=== PATIENT | female | born 1940 | race Caucasian/White ===

== ENCOUNTER → 2016-03-17 | Outpatient (CLI) | payer OTHER ==
[~2016-03-17] MED LIST: ACET-1138 PO; ASPEC81 PO; ASPI81TA28 PO; CARB1SOL OPB; FURO-85 PO; INSUINJ12 SC; LOSA1TAB38 PO; LVMIPUC SC; NVLGI/PEN SC; ONDA8TAB6 PO; OXYSR10 PO; PANT40TA PO; PRAVASTATIN PO; RXC5 PO; VERA180T33 PO; VRPSR180 PO
--- NOTE | 2016-03-17 12:29 | DIAGNOSTIC IMAGING REPORT ---
LEFT EXTREMITY NONVASCULAR LIMITED ultrasound CLINICAL HISTORY: M25.562 Left knee pain, left popliteal fossa pain. COMPARISON STUDY: Bilateral lower extremity venous Doppler 01/29/2016. FINDINGS: Within the left popliteal fossa there is a slightly complex 17 x 17 x 6 mm cyst. There is no associated color flow. IMPRESSION: A 17 x 17 x 6 mm slight complex left popliteal fossa cyst. Electronically signed by: Rohith Gabriel M.D. 03/17/2016 12:27 PM Dictated Date/Time: 03/17/2016 12:25 PM
== END | disposition home or self-care (01) ==
LOC: C.ULTR 11:44
PROVIDERS: ATTEND Internal Medicine
DX: M25.562 Pain in left knee (principal); M71.22 Synovial cyst of popliteal space [Baker], left knee

== ENCOUNTER → 2016-04-10 | Outpatient (CLI) | payer OTHER ==
[2016-04-10 12:57] LABS: HEMATOCRIT 38.4 % (37-47); MEAN CELL VOLUME 96.7 fL (80-100); MEAN CORPUSCULAR HEMOGLOBIN 32.7 pg (25-34); MEAN CORPUSCULAR HGB CONC 33.9 g/dl (32-36); MEAN PLATELET VOLUME 12.3 fL (7.4-10.4); PLATELET COUNT 120 K/uL (130-400); RED BLOOD COUNT 3.97 M/uL (4.2-5.4); WHITE BLOOD COUNT 5.92 K/uL (4.8-10.8)
[2016-04-10 13:13] LABS: BASO % 0.3 %; BASO ABS # 0.02 K/uL (0-0.2); COMPLETE YES; EOS % 3.4 %; IG% 0.2 %; LYMPH % 34.3 %; LYMPH ABS # 2.03 K/uL (1.2-3.4); MONO % 7.1 %; NEUT % 54.7 %
[2016-04-10 13:20] LABS: ESTIMATED AVERAGE GLUCOSE 146 mg/dl; HA1C FLAG Normal (Normal)
== END | disposition home or self-care (01) ==
LOC: C.LABBFT 07:40
PROVIDERS: ATTEND Internal Medicine
DX: E11.49 Type 2 diabetes mellitus with other diabetic neurological complication (principal); D69.6 Thrombocytopenia, unspecified

== ENCOUNTER → 2016-05-30 | Outpatient (CLI) | payer OTHER | END | disposition home or self-care (01) | LOC: C.LABBFT 12:01 | PROVIDERS: ATTEND Orthopaedic Surgery | DX: T84.82XD Fibrosis due to internal orthopedic prosthetic devices, implants and grafts, subsequent encounter (principal); X58.XXXD Exposure to other specified factors, subsequent encounter ==

== ENCOUNTER → 2016-07-20 | Outpatient (CLI) | payer OTHER ==
[~2016-07-20] MED LIST changes: -ASPEC81 PO; -ONDA8TAB6 PO; -OXYSR10 PO; -PRAVASTATIN PO; -RXC5 PO
[2016-07-20 12:30] LABS: BASO % 0.4 %; BASO ABS # 0.02 K/uL (0-0.2); COMPLETE YES; EOS % 3.6 %; HEMATOCRIT 40.9 % (37-47); IG% 0.2 %; LYMPH % 32.4 %; MEAN CELL VOLUME 96.5 fL (80-100); MEAN CORPUSCULAR HEMOGLOBIN 31.1 pg (25-34); MEAN CORPUSCULAR HGB CONC 32.3 g/dl (32-36); MEAN PLATELET VOLUME 11.5 fL (7.4-10.4); MONO % 9.2 %; NEUT % 54.2 %; PLATELET COUNT 136 K/uL (130-400); RED BLOOD COUNT 4.24 M/uL (4.2-5.4); WHITE BLOOD COUNT 5.56 K/uL (4.8-10.8)
[2016-07-20 12:59] LABS: BLOOD UREA NITROGEN 13 mg/dl (7-18); CARBON DIOXIDE 25 mmol/L (21-32); CHLORIDE 108 mmol/L (98-107); CREATININE 0.74 mg/dl (0.60-1.20); GLUCOSE 143 mg/dl (70-99); POTASSIUM 4.3 mmol/L (3.5-5.1); SODIUM 141 mmol/L (136-145)
--- NOTE | 2016-07-27 10:54 | CODING QUERY MEDICAL NECESSITY ---
CQSUPPORTING DIAGNOSIS NEEDED A supporting diagnosis is required for the test/procedure performed on this patient in order for us to be reimbursed by the patient's insurance. Please provide a supporting diagnosis for the following test/procedure listed below next to the test name along with your signature. *If there is no additional diagnosis for this patient that would support the following test/procedure please document that below next to the test/procedure. Test(s)/Procedure(s) that require a supporting diagnosis: DOS 07/20/16 BLOOD COUNT Provider Signature: Date: Thank you Sommer Schmidt Agent [employer] Once completed, please kindly fax back to [phone] For questions please call [phone]
== END | disposition home or self-care (01) ==
LOC: C.LABBFT 07:39
PROVIDERS: ATTEND Orthopaedic Surgery
DX: Z01.812 Encounter for preprocedural laboratory examination (principal); T84.82XD Fibrosis due to internal orthopedic prosthetic devices, implants and grafts, subsequent encounter; Y83.1 Surgical operation with implant of artificial internal device as the cause of abnormal reaction of the patient, or of later complication, without mention of misadventure at the time of the procedure

== ENCOUNTER 2016-08-08 04:58 | Observation (INO) | payer OTHER ==
[2016-07-18 10:17] VITALS: BMI 44.0
--- NOTE | 2016-08-07 22:26 | HISTORY & PHYSICAL EXAMINATION ---
DATE OF ADMISSION: 08/08/2016 HISTORY OF PRESENT ILLNESS: The patient presents as a 76-year-old white female, 4 feet 11 inches, 197 pounds, who presents with complaints of ongoing pain attributable to her left knee. 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 She has had surgery, it was a total knee arthroplasty, back in December of 2015. She has been through extensive physical therapy and has range of motion from -5degrees to 95 degrees. Though she has had extensive therapy, is unable to obtain terminal flexion to be able to ambulate steps without pain. She presents for manipulation under anesthesia, postoperative pain management, DVT prophylaxis, antibiotics as noted above. PAST MEDICAL HISTORY: Significant for hypertension, hypercholesterolemia, rheumatoid arthritis, acid reflux. PAST SURGICAL HISTORY: Unremarkable. See history of present illness for pertinent positives. SOCIAL HISTORY: Unremarkable. The patient denies history of alcohol use, smoking or recreational drug use. FAMILY HISTORY: Otherwise unremarkable and noncontributory. ALLERGIES: METFORMIN, ATORVASTATIN, AZITHROMYCIN, GLYBURIDE, LISINOPRIL, LOVASTATIN, PENICILLINS, PROPOXYPHENE, RANITIDINE, SIMVASTATIN, SULFA ANTIBIOTICS, TRAMADOL, ZINC, IBUPROFEN. CURRENT MEDICATIONS: Include acetaminophen, gabapentin 300 mg p.o. b.i.d., oxycodone 10 mg p.o. q. 12 hours, multivitamin, enteric aspirin 81 mg p.o. b.i.d. PHYSICAL EXAMINATION: GENERAL: Reveals a very pleasant 76-year-old white female with complaints of ongoing pain attributable to her left knee for which she has developed fibrosis, status post total knee arthroplasty. She presents for manipulation under anesthesia, postoperative pain management, DVT prophylaxis, antibiotics as necessary. HEENT: Otherwise unremarkable, atraumatic, normocephalic. HEART: Regular at 70 beats per minute. LUNGS: Clear without rales, rhonchi, or wheezes noted. ABDOMEN: Soft, nontender, nondistended. Bowel sounds are present in all four quadrants. RECTAL: No rectal examination was performed. MUSCULOSKELETAL: Consistent with that of a total knee arthroplasty with mild warmth, stiffness and range of motion from 5 to 95 degrees with a painful endpoint. The patient presents for manipulation under anesthesia, postoperative pain management, possible DVT prophylaxis, pending surgery. BETO
[2016-08-08] VITALS (11 sets, daily range): BP systolic 103–167; BP diastolic 63–87; PULSE 60–94; TEMP 36.3–36.9; O2SAT 91–100; Ht 142.2 cm; Wt 89.5 kg
[~2016-08-08] VITALS: Ht 142.2 cm; Wt 89.5 kg
[~2016-08-08 04:58] MED LIST changes: -LVMIPUC SC; -VERA180T33 PO
[2016-08-08] MEDS ORDERED: LACTATED RINGER'S 1000ML 1,000 ML IV SCH (06:00)
[2016-08-08] MEDS ORDERED: PROPOFOL IV EMULSION 10 MG/ML 20 ML VIAL IV ONE (06:30)
[2016-08-08] MEDS ORDERED: LIDOCAINE HCL 2% 2 ML VIAL (20MG/ML) ONE (06:30)
[2016-08-08] MEDS ORDERED: FENTANYL CITRATE INJ 50 MCG/1 ML 2 ML VIAL ONE (06:31)
[2016-08-08] MEDS ORDERED: MIDAZOLAM HCL 1 MG/ML 2ML VIAL ONE (06:31)
[2016-08-08] MEDS ORDERED: ROPIVACAINE 0.5% 5 MG/ML 30 ML VIAL ONE (06:47)
--- NOTE | 2016-08-08 06:54 | History & Physical Bridge Note ---
H&P Re-Evaluation Bridge Note: I have examined the patient, reviewed the History & Physical and in the interval since the performance of the History & Physical I have noted the following changes of clinical significance: No changes noted
--- NOTE | 2016-08-08 07:14 | [facility] Post Operative Brief Note ---
Immediate Operative Summary Operative Date Aug 08, 2016. Pre-Operative Diagnosis arthrofibrosis lt tka Post-Operative Diagnosis same Procedure(s) Performed curtis 0 135 degrees post -5 95 pre manip Surgeon brisa Sewer Head Surgeon(s) none Estimated Blood Loss 0 Findings arthyrofibrosis as above Specimens none Complication(s) None Disposition Recovery Room / PACU
[2016-08-08] MEDS ORDERED: MEPERIDINE 50 MG TAB PO PRN (07:30)
[2016-08-08] MEDS ORDERED: ACETAMINOPHEN 500 MG TAB PO ONE (07:39)
[2016-08-08] MEDS ORDERED: ATROPINE SULFATE 0.1 MG/ML 5ML SYR IV PRN (07:45)
[2016-08-08] MEDS ORDERED: EpHEDrine SULFATE INJ 50 MG/ML AMP IV PRN (07:45)
[2016-08-08] MEDS ORDERED: ONDANSETRON INJ 2 MG/ML 2 ML VIAL IV PRN (07:45)
[2016-08-08] MEDS ORDERED: MEPERIDINE HCL 25 MG/ML CARP IM PRN (07:45)
--- NOTE | 2016-08-08 08:05 | OPERATIVE REPORT ---
DATE OF OPERATION: 08/08/2016 PREOPERATIVE DIAGNOSIS: Arthrofibrosis, left knee, range of motion -5 to 95 degrees. POSTOPERATIVE DIAGNOSIS: Same with postoperative manipulation, range of motion 0 to 140 degrees. SURGEON: Syd Peterson DO ANESTHESIA: General. COMPLICATIONS: None. GROSS FINDINGS: The patient is a very pleasant 76-year-old white female with complaints of ongoing pain attributed to her left total knee arthroplasty she had done in December. She developed postoperative pain and subsequently developed arthrofibrosis of her left total knee She presents for left manipulation with total knee arthroplasty. PROCEDURE: After initiation of general anesthesia, the left knee was manipulated in full extension to 140 degrees of flexion without difficulty. Some mild lysis of adhesions, pre manip rom -5 degrees of extension and had approximately 95 to 100 degrees of flexion. The manipulation was very nonaggressive and easy with minimal lysis of adhesions. The knee had excellent motion. The patient was taken to recovery room in stable condition. I attest to the content of the Intraoperative Record and any orders documented therein. Any exceptions are noted below. BETO
--- NOTE | 2016-08-08 08:22 | Anesthesiology Progress Note ---
Anesthesia Post Op Note Date & Time Aug 08, 2016 at 08:22 Vital Signs Pain Intensity: 2 Vital Signs Past 12 Hours Date Time Temp Pulse Resp B/P (MAP) Pulse Ox O2 Delivery O2 Flow Rate FiO2 08/08/16 08:05 36.1 65 17 96 08/08/16 08:01 112/63 08/08/16 07:56 119/55 08/08/16 07:55 68 19 08/08/16 07:55 68 19 95 08/08/16 07:51 116/68 08/08/16 07:50 71 10 91 08/08/16 07:46 125/69 08/08/16 07:45 71 15 93 08/08/16 07:41 107/58 08/08/16 07:40 77 18 90 08/08/16 07:36 109/83 08/08/16 07:35 73 18 97 08/08/16 07:31 116/60 08/08/16 07:30 73 18 97 08/08/16 07:26 111/56 08/08/16 07:25 74 13 97 08/08/16 07:25 36.1 72 15 111/56 97 Oxymask 15 08/08/16 05:40 36.7 81 20 167/87 (113) 95 Room Air Notes Mental Status: alert / awake / arousable, participated in evaluation Pt Amnestic to Procedure: Yes Nausea / Vomiting: adequately controlled Pain: adequately controlled Airway Patency, RR, SpO2: stable & adequate BP & HR: stable & adequate Hydration State: stable & adequate Anesthetic Complications: no major complications apparent
[2016-08-08] MEDS: PANTOprazole SOD 40 MG TAB PO SCH (09:00)
[2016-08-08] MEDS ORDERED: GLUCOSE 10 TABS/TUBE PO PRN (09:00)
[2016-08-08] MEDS ORDERED: DEXTROSE 50% 50 ML SYR IV PRN (09:00)
[2016-08-08] MEDS ORDERED: GLUCAGON FOR INJ 1 MG VIAL SQ PRN (09:00)
[2016-08-08] MEDS ORDERED: GLUCOSE 40% GEL 15 GM TUBE PO PRN (09:00)
[2016-08-08] MEDS ORDERED: INSULIN ASPART 100 UNITS/ML 3 ML PEN SC SCH (09:00)
[2016-08-08] MEDS: POTASSIUM CHLORIDE INJ 10 MEQ in SODIUM CHLORIDE 0.9% 1000ML 1,000 ML IV SCH ×2 (09:47→20:33)
[2016-08-08] MEDS: VERAPAMIL HCL 180 MG TABCR PO SCH ×2 (10:05→11:26)
[2016-08-08] MEDS: FUROSEMIDE 20 MG TAB PO SCH (10:06)
[2016-08-08] MEDS: ARTIFICIAL TEARS OP SOLN OPB SCH ×6 (10:06→21:34)
[2016-08-08] MEDS: LOSARTAN POTASSIUM 50 MG TAB PO SCH (10:06)
[2016-08-08] MEDS: INSULIN ASPART 100 UNITS/ML 3 ML PEN SC SCH ×3 (13:10→21:00)
[2016-08-08] MEDS ORDERED: MEPERIDINE HCL 25 MG/ML CARP IV PRN ×2 (16:00→23:45)
[2016-08-08] MEDS: ACETAMINOPHEN 500 MG TAB PO SCH ×2 (16:07→23:42)
[2016-08-08] MEDS ORDERED: INSULIN DETEMIR FLEXPEN/FLEX TOUCH 100 UNITS/ML 3ML SC SCH (21:00)
[2016-08-09 03:08] VITALS: BP 146/73; PULSE 88; TEMP 36.7; O2SAT 92
[2016-08-09] MEDS: POTASSIUM CHLORIDE INJ 10 MEQ in SODIUM CHLORIDE 0.9% 1000ML 1,000 ML IV SCH (05:05)
[2016-08-09 07:39] VITALS: BP 152/82; PULSE 94; TEMP 36.7; O2SAT 93
--- NOTE | 2016-08-09 08:07 | Anesthesiology Progress Note ---
Anesthesia Post Op Note Date & Time Aug 09, 2016 at 08:06 Vital Signs Pain Intensity: 3.0 Vital Signs Past 12 Hours Date Time Temp Pulse Resp B/P (MAP) Pulse Ox O2 Delivery O2 Flow Rate FiO2 08/09/16 07:39 36.7 94 16 152/82 (105) 93 Room Air 08/09/16 07:20 Room Air 08/09/16 03:08 36.7 88 16 146/73 (97) 92 Room Air 08/08/16 23:30 Room Air 08/08/16 23:27 36.9 94 19 166/74 (104) 92 Room Air Notes Mental Status: alert / awake / arousable, participated in evaluation Pt Amnestic to Procedure: Yes Nausea / Vomiting: adequately controlled Pain: adequately controlled Airway Patency, RR, SpO2: stable & adequate BP & HR: stable & adequate Hydration State: stable & adequate Neuraxial Anesthesia: was administered, sensory block resolved Anesthetic Complications: no major complications apparent
[2016-08-09 08:10] VITALS: O2SAT 93
[2016-08-09] MEDS: ACETAMINOPHEN 500 MG TAB PO SCH (08:29)
[2016-08-09] MEDS: VERAPAMIL HCL 180 MG TABCR PO SCH (08:30)
[2016-08-09] MEDS: ARTIFICIAL TEARS OP SOLN OPB SCH ×2 (08:30)
[2016-08-09] MEDS: LOSARTAN POTASSIUM 50 MG TAB PO SCH (08:31)
[2016-08-09] MEDS: FUROSEMIDE 20 MG TAB PO SCH (08:31)
[2016-08-09] MEDS: PANTOprazole SOD 40 MG TAB PO SCH (08:32)
[2016-08-09] MEDS: INSULIN ASPART 100 UNITS/ML 3 ML PEN SC SCH (08:33)
[2016-08-09] MEDS ORDERED: INSULIN ASPART 100 UNITS/ML 3 ML PEN SC SCH (09:00)
[2016-08-09] MEDS ORDERED: NURSING VERBAL MED ORDER ONE (09:15)
--- NOTE | 2016-08-09 10:24 | Orthopedic Progress Note ---
Orthopedic Progress Note Date of Service Aug 09, 2016. Subjective Post OP Day: 1 Reports: feeling well, pain controlled w PO medications, Denies: complaints, chest pain, SOB, nausea / vomiting, light headedness, calf pain Objective calves soft nontender, N/V intact, capillary refill less than 2 sec., A&O x3, toes mobile Date Time Temp Pulse Resp B/P (MAP) Pulse Ox O2 Delivery O2 Flow Rate FiO2 08/09/16 08:10 93 Room Air 08/09/16 07:39 36.7 94 16 152/82 (105) 93 Room Air 08/09/16 07:20 Room Air 08/09/16 03:08 36.7 88 16 146/73 (97) 92 Room Air 08/08/16 23:30 Room Air 08/08/16 23:27 36.9 94 19 166/74 (104) 92 Room Air 08/08/16 20:00 154/79 (104) 08/08/16 19:21 36.7 84 17 158/74 (102) 92 Room Air 08/08/16 16:00 Room Air 08/08/16 15:09 36.4 60 16 139/74 (95) 92 Room Air 08/08/16 11:34 36.3 61 17 116/69 (85) 96 Nasal Cannula 2.0 08/08/16 10:27 36.4 61 19 106/66 (79) 95 Nasal Cannula 2.0 Assessment & Plan Assessment: POD #1, Lt TKA SUNNI Plan: PT/ OT D/C home today w OPPT. Inhouse Planning Pain Management: PO Tylenol DVT Prophylaxis: TEDs, SCDs Discharge Planning Discharge Planning: home with oppt Pain Management: PO Tylenol DVT Prophylaxis: TEDs Therapy: Physical Therapy, Occupational Therapy
[2016-08-09] MEDS ORDERED: ACET-1138 PO (10:25)
--- NOTE | 2016-08-09 10:27 | Discharge Instructions ---
Discharge Instructions Date of Service Aug 09, 2016. Admission Reason for Admission: Left Knee Arthrofibrosis, S/P Left Tka Discharge Discharge Diagnosis / Problem: Left TKA CURTIS Discharge Goals Goal(s): Improve function Activity Recommendations Activity Limitations: as noted below . Instructions / Follow-Up Instructions / Follow-Up PT daily until follow up w Dr. Peterson Tylenol for pain Ice/ Elevate as needed WBAT w walker Follow up w Dr. Peterson 12-14 days post op, call [phone] to confirm appt. Current Hospital Diet Patient's current hospital diet: Diabetes Type 2 Diet Discharge Diet Recommended Diet: Diabetes Type 2 Diet Procedures Procedures Performed: curtis 0 135 degrees post -5 95 pre manip Pending Studies Studies pending at discharge: no Medical Emergencies . Who to Call and When: Medical Emergencies: If at any time you feel your situation is an emergency, please call 911 immediately. . Non-Emergent Contact Non-Emergency issues call your: Primary Care Provider . "Provider Documentation" section prepared by Tomer Childress. . VTE Core Measure Inpt VTE Proph given/why not?: Other Anticoagulation (asa), T.E.DJanice Valentino, SCD's [place] Drug Monitoring Program Search Results: patient reviewed within database, no issues identified
[2016-08-09 11:22] VITALS: BP 152/82; PULSE 94; TEMP 36.7; O2SAT 93
--- NOTE | 2016-08-15 19:11 | Discharge Summary ---
Orthopedic Discharge Summary Admission Date/Reason Aug 08, 2016 at 07:18 Left Knee Arthrofibrosis, S/P Left Tka. Discharge Date/Disposition Aug 09, 2016 Home Diagnosis Principal Diagnosis: left knee arthrofibrosis Procedure(s) Performed Manipulation under anesthesia left total knee replacement Consultations NONE Medication Reconciliation Continued Medications: Acetaminophen (Tylenol Extra Strength) 500 Mg Tab 1000 MG PO Q8H for 21 Days, #126 TAB (This prescription has been renewed) Aspirin (Aspirin Ec) 81 Mg Tab 81 MG PO QAM Carboxymethylcellulose Sodium (Refresh) 1 % Gerald 1 DROP OPB TID Furosemide (Lasix) 20 Mg Tab 1 TAB PO QAM for 90 Days, #90 TAB 1 Refill Insulin Aspart (Novolog Flexpen) 100 Units/Ml Inj 18 UNITS SC BID BREAKFAST AND SUPPER Insulin Aspart (Novolog Flexpen) 100 Units/Ml Inj 7 UNITS SC LUNCH Insulin Detmir (Levemir) Inj 18 UNITS SC HS, VIAL Losartan Potassium (Cozaar) 100 Mg Tab 1 TAB PO QAM for 30 Days, #30 TAB 5 Refills Pantoprazole Sodium (Protonix) 40 Mg Tab 40 MG PO QAM Verapamil HCl (Verapamil HCl ER) 180 Mg Tabcr 1.5 TAB PO QAM 270 MG Admission Physical Exam As per Admitting History & Physical. Hospital Course patient admitted after SUNNI left TKA. she tolerated it well. she stayed overnight for pain control. on the day following SUNNI her pain was well controlled and stable for discharge with OPPT. please refer to daily progress notes for complete details. Discharge Instructions Please refer to the electronic Patient Visit Report (Discharge Instructions) for additional information.
[2016-11-28] MEDS ORDERED: LVMIPUC SC (11:33)
[2016-11-28] MEDS ORDERED: NVLGI/PEN SC (11:33)
[2016-11-28] MEDS ORDERED: VERA180T33 PO (11:33)
[2016-11-28] MEDS ORDERED: CARB1SOL OPB (11:33)
== END 2016-08-09 11:34 | disposition home or self-care (01) ==
LOC: C.ACU 04:58 → C.3E 07:18 → ENRESERV 07:55
PROVIDERS: ADMIT Orthopaedic Surgery; ATTEND Orthopaedic Surgery
DX: M24.662 Ankylosis, left knee (principal); I10 Essential (primary) hypertension; E11.9 Type 2 diabetes mellitus without complications; E78.00 Pure hypercholesterolemia, unspecified; M06.9 Rheumatoid arthritis, unspecified; E66.9 Obesity, unspecified; Z79.82 Long term (current) use of aspirin; Z68.39 Body mass index [BMI] 39.0-39.9, adult; Z98.890 Other specified postprocedural states; Z96.652 Presence of left artificial knee joint; Z98.41 Cataract extraction status, right eye; Z98.42 Cataract extraction status, left eye; Z88.1 Allergy status to other antibiotic agents; Z88.0 Allergy status to penicillin; Z88.2 Allergy status to sulfonamides

== ENCOUNTER → 2016-09-15 | Outpatient (CLI) | payer OTHER ==
[~2016-09-15] MED LIST changes: +LVMIPUC SC; +VERA180T33 PO
[2016-09-15 12:49] LABS: HEMATOCRIT 39.9 % (37-47); MEAN CELL VOLUME 97.1 fL (80-100); MEAN CORPUSCULAR HEMOGLOBIN 31.9 pg (25-34); MEAN CORPUSCULAR HGB CONC 32.8 g/dl (32-36); MEAN PLATELET VOLUME 12.1 fL (7.4-10.4); PLATELET COUNT 113 K/uL (130-400); RED BLOOD COUNT 4.11 M/uL (4.2-5.4); WHITE BLOOD COUNT 4.96 K/uL (4.8-10.8)
[2016-09-15 13:03] LABS: ESTIMATED AVERAGE GLUCOSE 151 mg/dl; HA1C FLAG Normal (Normal)
[2016-09-15 13:05] LABS: BASO % 0.4 %; BASO ABS # 0.02 K/uL (0-0.2); COMPLETE YES; EOS % 3.8 %; IG% 0.2 %; LYMPH % 31.9 %; LYMPH ABS # 1.58 K/uL (1.2-3.4); MONO % 8.7 %
== END | disposition home or self-care (01) ==
LOC: C.LABBFT 07:45
PROVIDERS: ATTEND Internal Medicine
DX: E11.49 Type 2 diabetes mellitus with other diabetic neurological complication (principal); D69.6 Thrombocytopenia, unspecified

== ENCOUNTER → 2016-12-08 | Day surgery (SDC) | payer OTHER ==
[2016-11-28 11:34] VITALS: Ht 142.2 cm; Wt 89.1 kg
[~2016-12-08] VITALS: Ht 142.2 cm; Wt 89.1 kg
[~2016-12-08] MED LIST changes: -ACET-1138 PO; -INSUINJ12 SC; +LIDOCAINE HCL 2% 2 ML VIAL (20MG/ML) ONE; +PROPOFOL IV EMULSION 10 MG/ML 20 ML VIAL IV ONE; -VRPSR180 PO
--- NOTE | 2016-12-08 09:48 | Endo History and Physical ---
History & Physical Date of Service: Dec 08, 2016. Chief Complaint: Screening-Hx of Polyps Referring Physician: Dr Penaloza History of Present Illness 76 yo CF who presents for colonoscopy secondary to history of colon polyps. Past Medical History Diabetes, Reflux, Hypertension Past Surgical History Hx Cardiac Surgery: No Hx Internal Defibrillator: No Hx Pacemaker: No Hx Abdominal Surgery: No Hx of Implantable Prosthesis: No Hx Post-Op Nausea and Vomiting: No Hx Cancer Surgery: No Hx Thoracic Surgery: No Hx Orthopedic: Yes (RT/LEFT KNEE ARTHROSCOPY,LEFT TKA, LIPOMA L SHOULDER,R FOOT BONE SPUR) Hx Urinary Tract Surgery: No Family History None Social History Smoking Status: Never Smoker Hx Substance Use: No Hx Alcohol Use: No Allergies Coded Allergies: Amoxicillin (Unverified Allergy, Severe, hives Respdifficulty, 12/08/16) Atorvastatin (Verified Allergy, Intermediate, Rash/Hives, 11/28/16) Ezetimibe (Verified Allergy, Intermediate, Hives/Rash, 11/28/16) Glyburide (Verified Allergy, Intermediate, Rash/Hives, 11/28/16) Hydrocodone (Verified Allergy, Intermediate, RASH, 11/28/16) Metformin (Verified Allergy, Mild, HIVES, 11/28/16) PATIENT STATES SHE CANNOT TAKE ANY PO INSULIN TYPE MEDS CAUSING HER HIVES. Azithromycin (Verified Allergy, Unknown, Hives/Rash, 11/28/16) Isopropyl Alcohol (Unverified Allergy, Unknown, BLISTERS, 11/28/16) Lisinopril (Verified Allergy, Unknown, Cough, 11/28/16) Lovastatin (Verified Allergy, Unknown, Rash/Hives, 11/28/16) Morphine (Unverified Allergy, Unknown, per PCP records , 11/28/16) Oxycodone (Unverified Allergy, Unknown, RASH, 11/28/16) Penicillins (Unverified Allergy, Unknown, HIVES, 11/28/16) Pioglitazone (Verified Allergy, Unknown, Rash/Hives, 11/28/16) Pravastatin (Unverified Allergy, Unknown, per PCP records , 11/28/16) Propoxyphene (Unverified Allergy, Unknown, RASH HIVES, 11/28/16) Propylene Glycol (Unverified Allergy, Unknown, BLISTERS, 11/28/16) Ranitidine (Verified Allergy, Unknown, Rash/Hives, 11/28/16) Rosuvastatin (Verified Allergy, Unknown, Rash/Hives, 11/28/16) Simvastatin (Verified Allergy, Unknown, Muscles Ache, 11/28/16) Sulfa Antibiotics (Unverified Allergy, Unknown, GI UPSET, 11/28/16) Tramadol (Verified Allergy, Unknown, Hives/Rash, 11/28/16) Zinc (Verified Allergy, Unknown, Unknown, 11/28/16) Diclofenac (Verified Adverse Reaction, Intermediate, BLISTERS, 11/28/16) Ibuprofen (Unverified Adverse Reaction, Unknown, AVOIDS SECONDARY TO STOMACH UPSET , 11/28/16) Uncoded Allergies: SALONPAS PATCH (Allergy, Unknown, RASH, 06/06/16) Current Medications Reported Home Medications Medications Dose Route/Sig Max Daily Dose Days Date Category Dose Instructions Calan Sr Ext Rel (Verapamil Hcl) 180 Mg Tab 1.5 Tab PO QAM 11/28/16 Reported Refresh (Carboxymethylcellulose Sodium) 1 % Gerald 1 Drop OPB QID 11/28/16 Reported Novolog Flexpen (Insulin Aspart) 100 Units/Ml Inj 1 Dose SC QID 11/28/16 Reported 18 UNITS IN AM 8 UNIST AT LUNCH 16 UNITS AT SUPPER Levemir (Insulin Detemir) 1,000 Units/10 Ml Inj 1 Dose SC BID 11/28/16 Reported 8 UNITS IN AM 16 UNITS IN PM Protonix (Pantoprazole Sodium) 40 Mg Tab 40 Mg PO QAM 07/18/16 Reported Aspirin Ec (Aspirin) 81 Mg Tab 81 Mg PO QAM 07/18/16 Reported Cozaar (Losartan Potassium) 100 Mg Tab 1 Tab PO QAM 30 05/27/15 Reported Lasix (Furosemide) 20 Mg Tab 1 Tab PO QAM 90 05/27/15 Reported Vital Signs Weight (Kilograms): 89.09 Height (Feet): 4 Height (Inches): 8 Date Time Temp Pulse Resp B/P (MAP) Pulse Ox O2 Delivery O2 Flow Rate FiO2 12/08/16 09:23 36.9 89 20 155/62 (93) 95 Room Air Physical Exam General Appearance: WD/WN, no apparent distress Respiratory/Chest: Auscultation: breath sounds normal Cardiovascular: Heart Auscultation: RRR Abdomen: Bowel Sounds: normal Inspection & Palpation: soft, non-distended, no tenderness, guarding & rebound Assessment and Plan Assessment: 76 yo CF who presents for colonoscopy secondary to history of colon polyps. Plan: Proceed with colonoscopy.
--- NOTE | 2016-12-08 10:27 | GI REPORT ---
Procedure Date: 12/08/2016 9:52 AM Procedure: Colonoscopy Indications: High risk colon cancer surveillance: Personal history of colonic polyps Medicines: Monitored Anesthesia Care Complications: No immediate complications. Estimated Blood Loss: Estimated blood loss: none. Procedure: Pre-Anesthesia Assessment: - Prior to the procedure, a History and Physical was performed, and patient medications and allergies were reviewed. The patient's tolerance of previous anesthesia was also reviewed. The risks and benefits of the procedure and the sedation options and risks were discussed with the patient. All questions were answered, and informed consent was obtained. Prior Anticoagulants: The patient has taken aspirin, last dose was 1 day prior to procedure. ASA Grade Assessment: III - A patient with severe systemic disease. After reviewing the risks and benefits, the patient was deemed in satisfactory condition to undergo the procedure. After I obtained informed consent, the scope was passed under direct vision. Throughout the procedure, the patient's blood pressure, pulse, and oxygen saturations were monitored continuously. The scope was introduced through the anus and advanced to the cecum, identified by appendiceal orifice and ileocecal valve. The colonoscopy was performed without difficulty. The patient tolerated the procedure well. The quality of the bowel preparation was good. The ileocecal valve, appendiceal orifice, and rectum were photographed. Findings: Multiple small-mouthed diverticula were found in the sigmoid colon. Non-bleeding internal hemorrhoids were found during retroflexion. The hemorrhoids were small. Impression: - Diverticulosis in the sigmoid colon. - Non-bleeding internal hemorrhoids. - No specimens collected. Recommendation: - Resume previous diet. - Continue present medications. - Return to primary care physician as previously scheduled. - No repeat colonoscopy due to age and the absence of advanced adenomas. Krishna Cho DO 12/08/2016 10:26:38 AM This report has been signed electronically. Note Initiated On: 12/08/2016 9:52 AM I attest to the content of the Intraoperative Record and orders documented therein, exceptions below
--- NOTE | 2016-12-08 10:28 | Discharge Instructions ---
Endoscopy Patient Instructions Date / Procedure(s) Performed Dec 08, 2016. Colonoscopy Allergy Information Coded Allergies: Amoxicillin (Unverified Allergy, Severe, hives Respdifficulty, 12/08/16) Atorvastatin (Verified Allergy, Intermediate, Rash/Hives, 11/28/16) Ezetimibe (Verified Allergy, Intermediate, Hives/Rash, 11/28/16) Glyburide (Verified Allergy, Intermediate, Rash/Hives, 11/28/16) Hydrocodone (Verified Allergy, Intermediate, RASH, 11/28/16) Metformin (Verified Allergy, Mild, HIVES, 11/28/16) PATIENT STATES SHE CANNOT TAKE ANY PO INSULIN TYPE MEDS CAUSING HER HIVES. Azithromycin (Verified Allergy, Unknown, Hives/Rash, 11/28/16) Isopropyl Alcohol (Unverified Allergy, Unknown, BLISTERS, 11/28/16) Lisinopril (Verified Allergy, Unknown, Cough, 11/28/16) Lovastatin (Verified Allergy, Unknown, Rash/Hives, 11/28/16) Morphine (Unverified Allergy, Unknown, per PCP records , 11/28/16) Oxycodone (Unverified Allergy, Unknown, RASH, 11/28/16) Penicillins (Unverified Allergy, Unknown, HIVES, 11/28/16) Pioglitazone (Verified Allergy, Unknown, Rash/Hives, 11/28/16) Pravastatin (Unverified Allergy, Unknown, per PCP records , 11/28/16) Propoxyphene (Unverified Allergy, Unknown, RASH HIVES, 11/28/16) Propylene Glycol (Unverified Allergy, Unknown, BLISTERS, 11/28/16) Ranitidine (Verified Allergy, Unknown, Rash/Hives, 11/28/16) Rosuvastatin (Verified Allergy, Unknown, Rash/Hives, 11/28/16) Simvastatin (Verified Allergy, Unknown, Muscles Ache, 11/28/16) Sulfa Antibiotics (Unverified Allergy, Unknown, GI UPSET, 11/28/16) Tramadol (Verified Allergy, Unknown, Hives/Rash, 11/28/16) Zinc (Verified Allergy, Unknown, Unknown, 11/28/16) Diclofenac (Verified Adverse Reaction, Intermediate, BLISTERS, 11/28/16) Ibuprofen (Unverified Adverse Reaction, Unknown, AVOIDS SECONDARY TO STOMACH UPSET , 11/28/16) Uncoded Allergies: SALONPAS PATCH (Allergy, Unknown, RASH, 06/06/16) Discharge Date / Findings Dec 08, 2016. Diverticulosis Internal hemorrhoids Medication Instructions Stopped Medication(s): ASA, OK to resume all medications today as prescribed Reported Home Medications Medications Dose Route/Sig Max Daily Dose Days Date Category Dose Instructions Calan Sr Ext Rel (Verapamil Hcl) 180 Mg Tab 1.5 Tab PO QAM 11/28/16 Reported Refresh (Carboxymethylcellulose Sodium) 1 % Gerald 1 Drop OPB QID 11/28/16 Reported Novolog Flexpen (Insulin Aspart) 100 Units/Ml Inj 1 Dose SC QID 11/28/16 Reported 18 UNITS IN AM 8 UNIST AT LUNCH 16 UNITS AT SUPPER Levemir (Insulin Detemir) 1,000 Units/10 Ml Inj 1 Dose SC BID 11/28/16 Reported 8 UNITS IN AM 16 UNITS IN PM Protonix (Pantoprazole Sodium) 40 Mg Tab 40 Mg PO QAM 07/18/16 Reported Aspirin Ec (Aspirin) 81 Mg Tab 81 Mg PO QAM 07/18/16 Reported Cozaar (Losartan Potassium) 100 Mg Tab 1 Tab PO QAM 30 05/27/15 Reported Lasix (Furosemide) 20 Mg Tab 1 Tab PO QAM 90 05/27/15 Reported Provider Instructions Activity Restrictions - No exercising or heavy lifting for 24 hours. - Do not drink alcohol the day of the procedure. - Do not drive a car or operate machinery until the day after the procedure. - Do not make any important decisions or sign important papers in 24 hours after the procedure. Following Day: - Return to full activity which may include returning to work/school. Diet Start your diet with liquids and light foods (jello, soup, juice, toast). Then eat your usual diet if not nauseated. Treatment For Common After Affects For mild abdominal pain, bloating, or excessive gas: - Rest - Eat lightly - Lie on right side Follow-Up Information Follow-up with Dr Penaloza as scheduled Anesthesia Information What You Should Know You have had a procedure that required some medicine to reduce anxiety and discomfort. This treatment is called moderate sedation. After receiving the treatment, you may be sleepy, but you will be able to breathe on your own. The effects of the treatment may last for several hours. Follow these instructions along with Activity/Diet recommendations noted above: * Do NOT do anything where dizziness or clumsiness would be dangerous. * Rest quietly at home today, then you can be up and about tomorrow. * Have a responsible person stay with you the rest of today. * You may have had an I.V. today. If so, you may take the dressing off later today. Recommendations Call your doctor if: * Trouble breathing * Continuous vomiting for more than 24 hours * Temperature above 101 degrees * Severe abdominal pain or bloating * Pain not relieved by pain medicine ordered * There is increased drainage or redness from any incision * A large amount of rectal bleeding greater than 2-3 tablespoons. (If you had a polyp/s removed or have hemorrhoids, a small amount of blood - from the rectum is to be expected.) * You have any unanswered questions or concerns. IN THE EVENT OF A SERIOUS EMERGENCY, GO TO THE NEAREST EMERGENCY ROOM Your discharge instructions were prepared by provider Krishna Cho. Patient Instructions Signature Page Esperanza Trinidad Patient (or Guardian) Signature/Date: I have read and understand the instructions given to me by my caregivers. Caregiver/RN/Doctor Signature/Date: The above-named patient and/or guardian has received patient instructions on this date. + Original Patient Signature Page (only) stays with chart. Please make copy for patient.
--- NOTE | 2016-12-08 10:41 | Anesthesiology Progress Note ---
Anesthesia Post Op Note Date & Time Dec 08, 2016 at 10:41 Vital Signs Pain Intensity: 4 Vital Signs Past 12 Hours Date Time Temp Pulse Resp B/P (MAP) Pulse Ox O2 Delivery O2 Flow Rate FiO2 12/08/16 10:22 69 20 101/54 (70) 96 Room Air 12/08/16 09:23 36.9 89 20 155/62 (93) 95 Room Air Notes Mental Status: alert / awake / arousable, participated in evaluation Pt Amnestic to Procedure: Yes Nausea / Vomiting: adequately controlled Pain: adequately controlled Airway Patency, RR, SpO2: stable & adequate BP & HR: stable & adequate Hydration State: stable & adequate Anesthetic Complications: no major complications apparent
[2016-12-08 10:53] VITALS: BP 135/70; PULSE 68; O2SAT 95
== END | disposition home or self-care (01) ==
LOC: C.GI 08:39
PROVIDERS: ATTEND Internal Medicine
DX: Z12.11 Encounter for screening for malignant neoplasm of colon (principal); K57.30 Diverticulosis of large intestine without perforation or abscess without bleeding; K64.8 Other hemorrhoids; Z86.010 Personal history of colon polyps; E11.9 Type 2 diabetes mellitus without complications; K21.9 Gastro-esophageal reflux disease without esophagitis; I10 Essential (primary) hypertension; Z96.652 Presence of left artificial knee joint; Z79.82 Long term (current) use of aspirin; Z98.41 Cataract extraction status, right eye; Z98.42 Cataract extraction status, left eye; E78.5 Hyperlipidemia, unspecified; M19.90 Unspecified osteoarthritis, unspecified site; Z79.4 Long term (current) use of insulin; E66.01 Morbid (severe) obesity due to excess calories; Z77.22 Contact with and (suspected) exposure to environmental tobacco smoke (acute) (chronic)

== ENCOUNTER → 2016-12-21 | Outpatient (CLI) | payer OTHER ==
[~2016-12-21] MED LIST changes: -LIDOCAINE HCL 2% 2 ML VIAL (20MG/ML) ONE; -PROPOFOL IV EMULSION 10 MG/ML 20 ML VIAL IV ONE
[2016-12-21 12:36] LABS: ESTIMATED AVERAGE GLUCOSE 148 mg/dl; HA1C FLAG Normal (Normal)
== END | disposition home or self-care (01) ==
LOC: C.LABBFT 07:42
PROVIDERS: ATTEND Nurse Practitioner Family
DX: E11.49 Type 2 diabetes mellitus with other diabetic neurological complication (principal)

== ENCOUNTER → 2017-01-22 | Outpatient (CLI) | payer OTHER ==
--- NOTE | 2017-01-22 15:13 | MAMMOGRAPHY REPORT ---
BILATERAL DIGITAL SCREENING MAMMOGRAM TOMOSYNTHESIS WITH CAD: 01/22/2017 CLINICAL HISTORY: Routine screening. Patient has no complaints. TECHNIQUE: Breast tomosynthesis in addition to standard 2D mammography was performed. Current study was also evaluated with a Computer Aided Detection (CAD) system. COMPARISON: Comparison is made to exams dated: 01/13/2016 mammogram, 01/08/2015 mammogram, 3 mammogram, 01/07/2014 mammogram, 01/01/2012 mammogram, and 12/22/2010 mammogram - [facility]. BREAST COMPOSITION: There are scattered areas of fibroglandular density in both breasts. FINDINGS: There are mild to moderate vascular calcifications in the breasts. Stable benign-appearin g coarse and rodlike calcifications bilaterally. A stable metallic biopsy marker in the left breast. No new suspicious mass, architectural distortion or cluster of microcalcifications is seen. IMPRESSION: ACR BI-RADS CATEGORY 2: BENIGN There is no mammographic evidence of malignancy. A 1 year screening mammogram is recommended. The pa tient will receive written notification of the results. Approximately 10% of breast cancers are not detected with mammography. A negative mammographic report should not delay biopsy if a clinically suggestive mass is present. Mariela Lebron M.D. ay/:01/22/2017 14:29:29 Cia Agent: Malick aCmarillo M, [facility] letter sent: Normal 1/2 BI-RADS Code: ACR BI-RADS Category 2: Benign
== END | disposition home or self-care (01) ==
LOC: C.MAMM 13:36
PROVIDERS: ATTEND Internal Medicine
DX: Z12.31 Encounter for screening mammogram for malignant neoplasm of breast (principal)

== ENCOUNTER → 2017-03-26 | Outpatient (CLI) | payer OTHER ==
[2017-03-26 12:35] LABS: HEMOGLOBIN A1C 6.6 % (4.5-5.6)
== END | disposition home or self-care (01) ==
LOC: C.LABBFT 07:59
PROVIDERS: ATTEND Nurse Practitioner Family
DX: E11.49 Type 2 diabetes mellitus with other diabetic neurological complication (principal)

== ENCOUNTER → 2017-04-30 | Outpatient (CLI) | payer OTHER ==
[2017-04-30 12:35] LABS: BASO % 0.4 %; BASO ABS # 0.02 K/uL (0-0.2); EOS % 2.7 %; EOS ABS # 0.15 K/uL (0-0.5); HEMOGLOBIN 13.3 g/dL (12.0-16.0); IG# 0.02 K/uL (0.00-0.02); LYMPH % 31.1 %; LYMPH ABS # 1.71 K/uL (1.2-3.4); MEAN CELL VOLUME 97.3 fL (80-100); MEAN CORPUSCULAR HEMOGLOBIN 33.2 pg (25-34); MEAN CORPUSCULAR HGB CONC 34.1 g/dl (32-36); MEAN PLATELET VOLUME 11.6 fL (7.4-10.4); MONO % 7.1 %; MONO ABS # 0.39 K/uL (0.11-0.59); NEUT % 58.3 %; PLATELET COUNT 112 K/uL (130-400); RED CELL DISTRIBUTION WIDTH CV 15.6 % (11.5-14.5); RED CELL DISTRIBUTION WIDTH SD 55.3 fL (36.4-46.3); WHITE BLOOD COUNT 5.49 K/uL (4.8-10.8)
[2017-04-30 14:50] LABS: ALBUMIN 3.2 gm/dl (3.4-5.0); ALT/SGPT 42 U/L (12-78); BLOOD UREA NITROGEN 15 mg/dl (7-18); CALCIUM 8.7 mg/dl (8.5-10.1); CARBON DIOXIDE 26 mmol/L (21-32); CHOLESTEROL 245 mg/dl (0-200); CREATININE 0.74 mg/dl (0.60-1.20); GLUCOSE 125 mg/dl (70-99); POTASSIUM 3.9 mmol/L (3.5-5.1); SODIUM 140 mmol/L (136-145)
[2017-04-30 14:53] LABS: ALKALINE PHOSPHATASE 129 U/L (45-117); AST/SGOT 30 U/L (15-37); LDL CHOLESTEROL CALCULATED 169 mg/dl; TOTAL PROTEIN 7.3 gm/dl (6.4-8.2)
== END | disposition home or self-care (01) ==
LOC: C.LABBFT 07:36
PROVIDERS: ATTEND Internal Medicine
DX: E78.5 Hyperlipidemia, unspecified (principal); I10 Essential (primary) hypertension; D69.6 Thrombocytopenia, unspecified

== ENCOUNTER → 2017-05-14 | Outpatient (CLI) | payer OTHER ==
--- NOTE | 2017-05-14 18:30 | DIAGNOSTIC IMAGING REPORT ---
BONE SCAN 3 PHASE LIMITED CLINICAL HISTORY: LEFT KNEE PAIN, S/P TOTAL KNEE COMPARISON STUDY: Conventional radiographic evaluation of the left knee dated 01/26/2016 FINDINGS: The patient was injected with 26.8 mCi of technetium 99m MDP. An immediate vascular sequence was performed. There is minimal left knee hyperemia. Blood flow images demonstrate minimal increased activity within the left knee as compared to the right. Three-hour delayed images of both knees were acquired. Increased activity within the right knee, has an appearance most consistent with moderate arthritic change. Increased activity in the ankles is likely arthritic. There is mild increased activity involving the bone subjacent to the femoral and tibial prosthetic components. Infection cannot be excluded. The pattern is not typical of loosening. IMPRESSION: 1. Moderate increased activity within the right knee, likely on a degenerative/arthritic basis 2. Subtle left knee hyperemia and increased blood pool activity. Mild increased activity involving the bone subjacent to the left femoral and tibial prosthetic components. Infection cannot be excluded. Electronically signed by: Gene Saha M.D. 05/14/2017 6:29 PM Dictated Date/Time: 05/14/2017 6:23 PM
== END | disposition home or self-care (01) ==
LOC: C.NUCL 14:12
PROVIDERS: ATTEND Orthopaedic Surgery
DX: Z96.652 Presence of left artificial knee joint (principal); R93.7 Abnormal findings on diagnostic imaging of other parts of musculoskeletal system

== ENCOUNTER → 2017-06-04 | Outpatient (CLI) | payer OTHER | END | disposition home or self-care (01) | LOC: C.CPL 12:58 | DX: L91.0 Hypertrophic scar (principal); I45.10 Unspecified right bundle-branch block ==

== ENCOUNTER → 2017-06-26 | Outpatient (CLI) | payer OTHER ==
[2017-06-26 12:36] LABS: HEMOGLOBIN A1C 7.1 % (4.5-5.6)
== END | disposition home or self-care (01) ==
LOC: C.LABBFT 08:05
PROVIDERS: ATTEND Nurse Practitioner Family
DX: E11.42 Type 2 diabetes mellitus with diabetic polyneuropathy (principal); E11.49 Type 2 diabetes mellitus with other diabetic neurological complication

== ENCOUNTER → 2017-09-28 | Outpatient (CLI) | payer OTHER ==
[2017-09-28 12:44] LABS: HEMATOCRIT 39.9 % (37-47); HEMOGLOBIN 13.3 g/dL (12.0-16.0); MEAN CELL VOLUME 95.7 fL (80-100); MEAN CORPUSCULAR HEMOGLOBIN 31.9 pg (25-34); MEAN CORPUSCULAR HGB CONC 33.3 g/dl (32-36); PLATELET COUNT 101 K/uL (130-400); RED CELL DISTRIBUTION WIDTH CV 15.1 % (11.5-14.5); RED CELL DISTRIBUTION WIDTH SD 52.7 fL (36.4-46.3); WHITE BLOOD COUNT 5.09 K/uL (4.8-10.8)
[2017-09-28 13:04] LABS: ALBUMIN 3.4 gm/dl (3.4-5.0); ALKALINE PHOSPHATASE 115 U/L (45-117); ALT/SGPT 36 U/L (12-78); AST/SGOT 33 U/L (15-37); BLOOD UREA NITROGEN 12 mg/dl (7-18); CALCIUM 8.6 mg/dl (8.5-10.1); CARBON DIOXIDE 25 mmol/L (21-32); CHOLESTEROL 231 mg/dl (0-200); CREATININE 0.74 mg/dl (0.60-1.20); GLUCOSE 116 mg/dl (70-99); LDL CHOLESTEROL CALCULATED 154 mg/dl; POTASSIUM 3.8 mmol/L (3.5-5.1); SODIUM 143 mmol/L (136-145); TOTAL PROTEIN 6.9 gm/dl (6.4-8.2)
[2017-09-28 13:30] LABS: BASO % 0.4 %; BASO ABS # 0.02 K/uL (0-0.2); EOS % 3.9 %; IG# 0.01 K/uL (0.00-0.02); LYMPH ABS # 1.68 K/uL (1.2-3.4); MONO % 7.9 %; NEUT % 54.6 %; NEUT ABS # 2.78 K/uL (1.4-6.5)
== END | disposition home or self-care (01) ==
LOC: C.LABBFT 07:34
PROVIDERS: ATTEND Internal Medicine
DX: R77.1 Abnormality of globulin (principal); D69.6 Thrombocytopenia, unspecified; E78.5 Hyperlipidemia, unspecified; R31.29 Other microscopic hematuria

== ENCOUNTER 2022-07-16 20:35 | Inpatient (IN) ==
[2022-07-16 21:37] LABS: Basophils # (auto) 0.04 K/uL (0-0.2); Basophils % (auto) 0.6 %; Eosinophils # (auto) 0.33 K/uL (0-0.50); Eosinophils % (auto) 4.7 %; Hematocrit (blood only) 23.9 % (37.0-47.0); Hemoglobin 7.2 g/dl (12.0-16.0); Immature Granulocytes # (auto) 0.01 K/uL (0.01-0.20); Immature Granulocytes % (auto) 0.1 %; Lymphocytes # (auto) 1.89 K/uL (1.2-3.4); Mean Corpuscular Hemoglobin 25.8 pg (25.0-34.0); Mean Corpuscular Hgb Conc 30.1 g/dL (32.0-36.0); Mean Corpuscular Volume 85.7 fL (80.0-100.0); Mean Platelet Volume 12.4 fL (9.4-12.4); Monocytes # (auto) 0.87 K/uL (0.11-0.59); Monocytes % (auto) 12.4 %; Neutrophils # (auto) 3.85 K/uL (1.40-6.50); Neutrophils % (auto) 55.2 %; Platelet Count 119 K/uL (130-400); RDW Coefficient of Variation 17.3 % (11.5-14.5); RDW Standard Deviation 54.1 fL (36.4-46.3); Red Blood Count 2.79 M/uL (4.20-5.40); White Blood Count 6.99 K/ul (4.8-10.8)
[2022-07-16] MEDS ORDERED: SODIUM CHLORIDE 0.9% 250 ML IV PRN (21:40)
[2022-07-16 21:46] LABS: Albumin Globulin Ratio 1.3 (0.9-2); Albumin Level 3.3 gm/dl (3.4-5.0); BUN Creatinine Ratio 21.1 (10-20); Bilirubin,Total 0.5 mg/dl (0.2-1.0); Calcium 7.8 mg/dl (8.6-10.3); Creatinine Clr Calc Pharmacy 51.5 ml/min; Est GFR (African American) 84.7 ml/min; Est GFR (Non-African American) 73.1 ml/min; Globulin 2.5 gm/dl (2.5-4.0); Potassium 4.3 mmol/L (3.5-5.1); Total Protein 5.8 gm/dl (6.0-8.3)
[2022-07-16 21:57] LABS: Troponin I High Sensitivity 217.7 pg/ml (0-14)
--- NOTE | 2022-07-16 22:14 | Emergency Department Note ---
Impression & Plan GI bleed, Anemia, BELL (dyspnea on exertion), Elevated troponin ED Provider Note INFORMANT: Patient ED PROVIDER(S): John Benito DO CHIEF COMPLAINT: Exertional dyspnea PLAN: Disposition: Admission Outpatient prescription management: none Discussion with: I spoke with the hospitalist, who will see the patient for admission/observation and further evaluation and consultation. MEDICAL DECISION MAKING: This is a 82-year-old female who presents to the ED with a chief complaint of shortness of breath with exertion. She states that she also has pain in front of her ears when she gets short of breath. This primarily occurs with walking. Today it occurred while she was at her sister's house. She states that she was having trouble breathing in her house because she had it very warm. She has had the symptoms for the past month but her symptoms have significantly worsened over the past few days. The patient does report some dark stools. She has had a colonoscopy in the past. They could not find any specific area of bleeding. The planning an endoscopy in the near future. The patient's physical exam was unremarkable. She is not symptomatic at this time. She is comfortable with her breathing. Her lungs are clear. Heart is regular rate and rhythm. Abdomen soft nontender. No recent illness or upper respiratory infectious symptoms. The patient's vital signs here are normal. Her hemoglobin is 7.2. Baseline is 9-10. Troponin was elevated 217. Chest x-ray was without obvious abnormality. No clear pneumonia. Chemistry panel showed no concerning electrolyte abnormalities. Kidney function was normal. The patient was typed and crossed for 1 unit of blood. This transfusion was started in the ED. I spoke with the hospitalist about the patient. She will be seen by the hospitalist for further evaluation and care. Her EKG did not show acute ischemic change. Triage Nursing notes reviewed. Vital Signs: reviewed Prior /Outside records reviewed: [none] Differential diagnosis: Differential includes acute coronary syndrome, myocardial infarction, CVA, TIA, anemia, infection, pneumonia, UTI, pyelonephritis, poor nutrition, dehydration, electrolyte disturbance,hypoglycemia. Diagnostics, as interpreted by me: 12 lead ECG: Sinus rhythm rate of 83. Right bundle branch block. No acute ischemic change. No PVCs. Normal QTc Cardiac Monitoring ordered: Sinus rhythm in the 70s and 80s. Medical decision rules: [none] Imaging studies: Chest x-ray: No acute disease. No obvious pneumonia or pneumothorax. Procedures: Blood transfusion. Critical care: I have personally spent 30 minutes of critical care time in the direct management of this patient. This includes bedside care, interpretation of diagnostic studies, and testing, discussion with consultants, patient, and family members, and other required patient management activities. This 30 minutes is in excess of all separately billable procedures. HPI: See MDM above. PAST MEDICAL HISTORY: See Below PAST SURGICAL HISTORY: See Below SOCIAL HISTORY: See Below HOME MEDICATIONS:See Below ALLERGIES: See Below VITALS: See Below PHYSICAL EXAMINATION: See MDM for positive findings otherwise unremarkable. CONSTITUTIONAL/VITAL SIGNS: Reviewed GENERAL:done as appropriate INTEGUMENTARY: done as appropriate HEAD: done as appropriate EYES: done as appropriate RESPIRATORY: done as appropriate CARDIOVASCULAR:done as appropriate GI/ABDOMEN:done as appropriate EXTREMITIES: done as appropriate NEUROLOGICAL: done as appropriate PSYCHIATRIC:done as appropriate MUSCULOSKELETAL:done as appropriate TRIAGE NURSING DOCUMENTATION REVIEWED. Past Med/Surg History Medical History Anemia Diabetes mellitus type 2, insulin dependent Dry eye syndrome Gait disturbance GERD (gastroesophageal reflux disease) Hiatal hernia Hyperlipidemia Hypertension Morbid obesity with BMI of 40.0-44.9, adult Osteoarthritis Peripheral neuropathy Right knee DJD Temporal arteritis Surgical History History of ankle surgery RT History of arthroscopic knee surgery RT/LEFT History of cataract surgery RT/LEFT History of colonoscopy History of esophagogastroduodenoscopy (EGD) History of temporal artery biopsy (01/16/19) Bilateral Temporal Artery Biopsy Dr. Ward 01/16/19 Hx of eye surgery Right Eye, retinal surgery done by Dr. Ruiz, done 05/03/20 S/P arthroscopy of shoulder LEFT X 2 (FATTY TUMOR REMOVED) S/P TKR (total knee replacement) LEFT Slow to wake up after anesthesia Irene teeth removed Family History Mother Diabetes Heart disease Hypertension Family history of diabetes mellitus Sister Diabetes Cancer liver Hypertension Family history of diabetes mellitus Father Heart disease Brother Hypertension Family history of diabetes mellitus Other No family history of adverse response to anesthesia Denies family history of Ovarian cancer Prostate cancer Myocardial infarction Breast cancer Colorectal cancer Social History (Reviewed 07/16/22 @ 22:27 by BONI Napoles Smoking Status: Never smoker Second Hand Exposure: Yes ( smoked); Do You Dip or Chew Tobacco: No; Hx Alcohol Use: No Hx Substance Use: No Preferred Language: Thai Communication Ability: Effective Visual Impairment: Limited Hearing Ability: Normal Cosmetology Instructor Required: No Beliefs That Will Affect Care: None marital status: / Current Living Situation: Alone 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[employer] Feels Safe at Home: Yes Childhood Exposure to Second-Hand Smoke: No Diet: regular caffeine: Yes during the past year weight has: remained stable Dental Care, Regularly: Yes Physical Activity Frequency: Does not Exercise Seatbelt Use: always Sunscreen Use: Yes Assistive Devices: Cane, Denture - Upper and Glasses Allergies Allergies Allergy/AdvReac Type Severity Reaction Status Date / Time amoxicillin Allergy Severe hives Verified 07/14/22 09:07 Respdifficulty atorvastatin Allergy Intermediate Rash/Hives Verified 07/14/22 09:07 ezetimibe Allergy Intermediate Hives/Rash Verified 07/14/22 09:07 glyburide Allergy Intermediate Rash/Hives Verified 07/14/22 09:07 hydrocodone Allergy Intermediate RASH Verified 07/14/22 09:07 metformin Allergy Intermediate HIVES Verified 07/14/22 09:07 Penicillins Allergy Intermediate HIVES Verified 07/14/22 09:07 azithromycin Allergy Mild hives/rash Verified 07/14/22 09:07 camphor [From Salonpas] Allergy Mild Rash Verified 07/14/22 09:07 isopropyl alcohol Allergy Mild BLISTERS Verified 07/14/22 09:07 latex Allergy Mild Rash Verified 07/14/22 09:07 lisinopril Allergy Mild Cough Verified 07/14/22 09:07 lovastatin Allergy Mild Rash/Hives Verified 07/14/22 09:07 menthol [From Salonpas] Allergy Mild Rash Verified 07/14/22 09:07 methyl salicylate Allergy Mild Rash Verified 07/14/22 09:07 [From Salonpas] oxycodone Allergy Mild RASH Verified 07/14/22 09:07 pioglitazone Allergy Mild Rash/Hives Verified 07/14/22 09:07 propoxyphene Allergy Mild RASH HIVES Verified 07/14/22 09:07 propylene glycol Allergy Mild BLISTERS Verified 07/14/22 09:07 ranitidine Allergy Mild Rash/Hives Verified 07/14/22 09:07 rosuvastatin Allergy Mild Rash/Hives Verified 07/14/22 09:07 simvastatin Allergy Mild Muscles Verified 07/14/22 09:07 Ache Sulfa (Sulfonamide Allergy Mild GI UPSET Verified 07/14/22 09:07 Antibiotics) tramadol Allergy Mild Hives/Rash Verified 07/14/22 09:07 morphine Allergy Unknown per PCP Verified 07/14/22 09:07 records pravastatin Allergy Unknown per PCP Verified 07/14/22 09:07 records zinc Allergy Unknown Unknown Verified 07/14/22 09:07 capsaicin AdvReac Intermediate BLISTERS Verified 07/14/22 09:07 diclofenac AdvReac Intermediate BLISTERS Verified 07/14/22 09:07 clindamycin AdvReac Mild Rash Verified 07/14/22 09:07 ibuprofen AdvReac Mild AVOIDS Verified 07/14/22 09:07 SECONDARY TO STOMACH UPSET Home Meds Home Medications Medication Instructions Recorded Confirmed aspirin 81 mg tablet,delayed 81 mg PO QAM 01/19/19 07/14/22 release carboxymethylcellulose 0.5 1 drp ophthalmic (eye) QID 04/27/20 07/14/22 %-glycerin 0.9 % eye drops (Refresh Optive) ferrous sulfate 142 mg (45 mg 142 mg PO QAM 04/27/20 07/14/22 iron) tablet,extended release (Slow Fe) acetaminophen 650 mg 1,300 mg PO Q12H 05/24/22 07/14/22 tablet,extended release furosemide 20 mg tablet 20 mg PO QAM 05/24/22 07/14/22 insulin detemir U-100 100 unit/mL 8 unit subcut UD 05/24/22 07/14/22 (3 mL) subcutaneous pen (Levemir FlexPen) losartan 100 mg tablet 100 mg PO QAM 05/24/22 07/14/22 Previous Rx's Medication Instructions Recorded blood sugar diagnostic #100 ea 10/06/21 compress.stocking,knee,reg,lrg #1 packet 10/19/21 Walking Cane #1 ea 12/01/21 ergocalciferol (vitamin D2) 1,250 50,000 unit PO WEEKLY #8 caps 01/18/22 mcg (50,000 unit) capsule verapamil 180 mg tablet,extended 270 mg PO QAM #135 tabs 02/24/22 release pen needle, diabetic 31 gauge x #200 ea 06/12/22 3/16" (BD Ultra-Fine Mini Pen Needle) insulin aspart U-100 100 unit/mL See Rx Instructions subcut 06/19/22 (3 mL) subcutaneous pen (Novolog .COMPLEX #15 mL FlexPen U-100 Insulin aspart) pantoprazole 40 mg tablet,delayed 40 mg PO BID GERD #180 tabs 06/19/22 release Results & Data (ED) Vital Signs Vital Signs - 24 hr 07/16/22 20:37 07/16/22 20:56 07/16/22 21:22 Temperature 36.7 C Temperature Source Temporal Artery Scan Pulse Rate 83 Respiratory Rate 17 Respiratory Depth Normal Blood Pressure 158/63 H Blood Pressure Mean 94 Pulse Oximetry 97 Oxygen Delivery Method Room Air Room Air Room Air Sepsis Recent Fever Within 48 Hours No Sepsis New/Unexplained Change in Mental Status No Sepsis Action Taken by Nursing No Action Required Laboratory Data 07/16/22 21:08 07/16/22 21:08 Lab Results 07/16/22 07/16/22 07/16/22 Range/Units 21:03 21:08 21:08 WBC 6.99 (4.8-10.8) K/ul RBC 2.79 L (4.20-5.40) M/uL Hgb 7.2 L (12.0-16.0) g/dl Hct 23.9 L (37.0-47.0) % MCV 85.7 (80.0-100.0) fL MCH 25.8 (25.0-34.0) pg MCHC 30.1 L (32.0-36.0) g/dL RDW Std Deviation 54.1 H (36.4-46.3) fL RDW Coeff of Zo 17.3 H (11.5-14.5) % Plt Count 119 L (130-400) K/uL MPV 12.4 (9.4-12.4) fL Immature Gran % (Auto) 0.1 % Neut % (Auto) 55.2 % Lymph % (Auto) 27.0 % [place] % (Auto) 12.4 % Eos % (Auto) 4.7 % Baso % (Auto) 0.6 % Neut # (Auto) 3.85 (1.40-6.50) K/uL Lymph # (Auto) 1.89 (1.2-3.4) K/uL [place] # (Auto) 0.87 H (0.11-0.59) K/uL Eos # (Auto) 0.33 (0-0.50) K/uL Baso # (Auto) 0.04 (0-0.2) K/uL Immature Gran # (Auto) 0.01 (0.01-0.20) K/uL Sodium 142 (136-145) mmol/L Potassium 4.3 (3.5-5.1) mmol/L Chloride 111 H (98-107) mmol/L Carbon Dioxide 22 (21-32) mmol/L Anion Gap 9 (3-11) BUN 16 (6-23) mg/dl Creatinine 0.76 (0.6-1.2) mg/dl Est Cr Clr Drug Dosing 51.5 ml/min Est GFR ( Amer) 84.7 ml/min Est GFR (Non-Af Amer) 73.1 ml/min BUN/Creatinine Ratio 21.1 H (10-20) Glucose 110 H (70-99(Fasting)) mg/dl Calcium 7.8 L (8.6-10.3) mg/dl Total Bilirubin 0.5 (0.2-1.0) mg/dl AST 42 H (13-39) U/L ALT 15 (7-52) U/L Alkaline Phosphatase 106 H (34-104) U/L Troponin I High Sens 217.7 H* (0-14) pg/ml Total Protein 5.8 L (6.0-8.3) gm/dl Albumin 3.3 L (3.4-5.0) gm/dl Globulin 2.5 (2.5-4.0) gm/dl Albumin/Globulin Ratio 1.3 (0.9-2) SARS-CoV-2, RNA, NAAT NEGATIVE (NEGATIVE) Discharge Plan Visit Data Chief Complaint: Shortness of Breath/Dyspnea Stated Complaint: SOB, HEADACHE ED Provider: John Benito Discharge Problem: GI bleed, Anemia, BELL (dyspnea on exertion), Elevated troponin Patient Disposition: Being Evaluated by Hospitalist Forms Stand Alone Forms: [facility] Contactual Prescriptions Prescriptions: No Action (DME) compress.stocking,knee,reg,lrg Misc See Rx Instructions .Route Qty: 1 5RF Rx Instructions: Orthotics to fit patient for knee high compression 8-15mmHg (DME) Walking Cane Misc See Rx Instructions .Route Qty: 1 0RF Rx Instructions: As directed ergocalciferol (vitamin D2) 1,250 mcg (50,000 unit) capsule 50,000 unit PO WEEKLY Qty: 8 3RF Patient Comments: TAKES ON SATURDAYS verapamil 180 mg tablet extended release 270 mg PO QAM Qty: 135 3RF (DME) pen needle, diabetic [BD Ultra-Fine Mini Pen Needle] 31 gauge x 3/16" needle See Rx Instructions .ROUTE .MEDSUPPLY Qty: 200 3RF Rx Instructions: use 5 times daily insulin aspart U-100 [Novolog FlexPen U-100 Insulin] 100 unit/mL (3 mL) insulin pen See Rx Instructions SQ .COMPLEX Qty: 15 11RF Rx Instructions: 16 units with breakfast, 12 with lunch, 16 with supper subcut ; pantoprazole 40 mg tablet,delayed release (DR/EC) 40 mg PO BID Qty: 180 2RF aspirin 81 mg tablet,delayed release (DR/EC) 81 mg PO QAM (DME) blood sugar diagnostic Strip See Rx Instructions .ROUTE .MEDSUPPLY Qty: 100 3RF Rx Instructions: As directed test 4x daily Refresh Optive 0.5-0.9 % Drops 1 drp OPHTHALMIC (EYE) QID Slow Fe 142 mg (45 mg iron) Tablet Extended Release 142 mg PO QAM furosemide 20 mg tablet 20 mg PO QAM losartan 100 mg tablet 100 mg PO QAM Levemir FlexPen 100 unit/mL (3 mL) insulin pen 8 unit subcut UD Rx Instructions: 8 units subq in the AM and 18 units subq HS acetaminophen 650 mg Tablet Extended Release 1,300 mg PO Q12H Referrals Referrals: Doroteo Penaloza MD [Primary Care Provider] -
[2022-07-16 22:22] LABS: Polychromasia 1+; Tear Drop Cells 1+
--- NOTE | 2022-07-16 23:35 | History & Physical Report ---
Resident Physician Supervision Note: I discussed the case with the resident and agree with the findings and plan as documented in the note. Documented By: Henry Radford MD Date of Service July 16, 2022 Assessment & Plan (1) GI bleed: Plan: -Suspect UGIB based on clinical history, pt with known colonic angiectasias per 05/2022 colonoscopy -Currently hemodynamically stable -Hgb 7.2 on admission, 1u pRBC transfused in ER -IVF repletion ongoing -Pantoprazole 40 mg IV BID -GI consulted, awaiting recommendations. Anticipate endoscopy in AM, keeping pt NPO for now -Trend CBC (2) Anemia: Plan: -As above, baseline 9-10 -Iron panel ordered for AM (3) BELL (dyspnea on exertion): Plan: -As above, likely due to anemia -Stable respiratory status on RA at present -Supplemental O2 as needed (4) Elevated troponin: Plan: -Troponin 218, EKG without ST change -Pt denies active chest pain -Likely demand in setting of GI bleed -Trend to peak -Echocardiogram ordered (5) Thrombocytopenia: Plan: -Plts 113 on admission, at baseline- chronic -Trend CBC (6) Type 2 diabetes mellitus treated with insulin: Plan: -Well-controlled, A1C 6.6% in 03/2022 -Lantus, SSI in hospital (7) Hypertension: Plan: -Stable at present -Continue losartan, verapamil (8) Bilateral lower extremity edema: Plan: -Holding home Lasix in setting of GI bleed (9) GERD (gastroesophageal reflux disease): Plan: -Pantoprazole PO converted to IV as above Plan FENGI: NPO for potential endoscopy in AM Code status: Full DVT ppx: SCDs, defer chemoprophylaxis in setting of GI bleed Isolation: None Dispo: Medical/surgical with telemetry History of Present Illness Chief Complaint: Dyspnea Primary Care Provider: Doroteo Penaloza MD 82 yo F with PMH iron deficiency anemia, IDDM2 with neuropathy, GERD, HLD, HTN presenting with dyspnea. Pt states she has had progressively worsening exertional dyspnea for past month with more acute worsening over past 3-4 days. She has had melena during this time as well. She does report a history of anemia for which she was on iron supplementation. Pt had colonoscopy done in 05/2022 with multiple non-bleeding angiectasias. She denies abdominal pain, chest pain, hematochezia, N/V/D. Pt arrived to ER hemodynamically stable. Initial evaluation significant for Hgb 7.2, Plts 119, troponin 218. CXR, EKG unremarkable. 1u pRBC transfused in ER. At present, pt reports feeling well, denies any complaints aside from exertional dyspnea. Allergies Allergy/AdvReac Type Severity Reaction Status Date / Time amoxicillin Allergy Severe hives Verified 07/14/22 09:07 Respdifficulty atorvastatin Allergy Intermediate Rash/Hives Verified 07/14/22 09:07 ezetimibe Allergy Intermediate Hives/Rash Verified 07/14/22 09:07 glyburide Allergy Intermediate Rash/Hives Verified 07/14/22 09:07 hydrocodone Allergy Intermediate RASH Verified 07/14/22 09:07 metformin Allergy Intermediate HIVES Verified 07/14/22 09:07 Penicillins Allergy Intermediate HIVES Verified 07/14/22 09:07 azithromycin Allergy Mild hives/rash Verified 07/14/22 09:07 camphor [From Salonpas] Allergy Mild Rash Verified 07/14/22 09:07 isopropyl alcohol Allergy Mild BLISTERS Verified 07/14/22 09:07 latex Allergy Mild Rash Verified 07/14/22 09:07 lisinopril Allergy Mild Cough Verified 07/14/22 09:07 lovastatin Allergy Mild Rash/Hives Verified 07/14/22 09:07 menthol [From Salonpas] Allergy Mild Rash Verified 07/14/22 09:07 methyl salicylate Allergy Mild Rash Verified 07/14/22 09:07 [From Salonpas] oxycodone Allergy Mild RASH Verified 07/14/22 09:07 pioglitazone Allergy Mild Rash/Hives Verified 07/14/22 09:07 propoxyphene Allergy Mild RASH HIVES Verified 07/14/22 09:07 propylene glycol Allergy Mild BLISTERS Verified 07/14/22 09:07 ranitidine Allergy Mild Rash/Hives Verified 07/14/22 09:07 rosuvastatin Allergy Mild Rash/Hives Verified 07/14/22 09:07 simvastatin Allergy Mild Muscles Verified 07/14/22 09:07 Ache Sulfa (Sulfonamide Allergy Mild GI UPSET Verified 07/14/22 09:07 Antibiotics) tramadol Allergy Mild Hives/Rash Verified 07/14/22 09:07 morphine Allergy Unknown per PCP Verified 07/14/22 09:07 records pravastatin Allergy Unknown per PCP Verified 07/14/22 09:07 records zinc Allergy Unknown Unknown Verified 07/14/22 09:07 capsaicin AdvReac Intermediate BLISTERS Verified 07/14/22 09:07 diclofenac AdvReac Intermediate BLISTERS Verified 07/14/22 09:07 clindamycin AdvReac Mild Rash Verified 07/14/22 09:07 ibuprofen AdvReac Mild AVOIDS Verified 07/14/22 09:07 SECONDARY TO STOMACH UPSET Home Medications Medication Instructions Recorded Confirmed Type aspirin 81 mg tablet,delayed 81 mg PO QAM 01/19/19 07/14/22 History release carboxymethylcellulose 0.5 1 drp ophthalmic (eye) QID 04/27/20 07/14/22 History %-glycerin 0.9 % eye drops (Refresh Optive) ferrous sulfate 142 mg (45 mg 142 mg PO QAM 04/27/20 07/14/22 History iron) tablet,extended release (Slow Fe) blood sugar diagnostic #100 ea 10/06/21 07/14/22 Rx compress.stocking,knee,reg,lrg #1 packet 10/19/21 07/14/22 Rx Walking Cane #1 ea 12/01/21 07/14/22 Rx ergocalciferol (vitamin D2) 1,250 50,000 unit PO WEEKLY #8 caps 01/18/22 07/14/22 Rx mcg (50,000 unit) capsule verapamil 180 mg tablet,extended 270 mg PO QAM #135 tabs 02/24/22 07/14/22 Rx release acetaminophen 650 mg 1,300 mg PO Q12H 05/24/22 07/14/22 History tablet,extended release furosemide 20 mg tablet 20 mg PO QAM 05/24/22 07/14/22 History insulin detemir U-100 100 unit/mL 8 unit subcut UD 05/24/22 07/14/22 History (3 mL) subcutaneous pen (Levemir FlexPen) losartan 100 mg tablet 100 mg PO QAM 05/24/22 07/14/22 History pen needle, diabetic 31 gauge x #200 ea 06/12/22 07/14/22 Rx 3/16" (BD Ultra-Fine Mini Pen Needle) insulin aspart U-100 100 unit/mL See Rx Instructions subcut 06/19/22 07/14/22 Rx (3 mL) subcutaneous pen (Novolog .COMPLEX #15 mL FlexPen U-100 Insulin aspart) pantoprazole 40 mg tablet,delayed 40 mg PO BID GERD #180 tabs 06/19/22 07/14/22 Rx release Past Med/Surg History Medical History Anemia Diabetes mellitus type 2, insulin dependent Dry eye syndrome Gait disturbance GERD (gastroesophageal reflux disease) Hiatal hernia Hyperlipidemia Hypertension Morbid obesity with BMI of 40.0-44.9, adult Osteoarthritis Peripheral neuropathy Right knee DJD Temporal arteritis Surgical History History of ankle surgery RT History of arthroscopic knee surgery RT/LEFT History of cataract surgery RT/LEFT History of colonoscopy History of esophagogastroduodenoscopy (EGD) History of temporal artery biopsy (01/16/19) Bilateral Temporal Artery Biopsy Dr. Ward 01/16/19 Hx of eye surgery Right Eye, retinal surgery done by Dr. Ruiz, done 05/03/20 S/P arthroscopy of shoulder LEFT X 2 (FATTY TUMOR REMOVED) S/P TKR (total knee replacement) LEFT Slow to wake up after anesthesia [place] teeth removed Family History Mother Diabetes Heart disease Hypertension Family history of diabetes mellitus Sister Diabetes Cancer liver Hypertension Family history of diabetes mellitus Father Heart disease Brother Hypertension Family history of diabetes mellitus Other No family history of adverse response to anesthesia Denies family history of Ovarian cancer Prostate cancer Myocardial infarction Breast cancer Colorectal cancer Social History Smoking Status: Never smoker Second Hand Exposure: Yes ( smoked); Do You Dip or Chew Tobacco: No; Hx Alcohol Use: No Hx Substance Use: No Preferred Language: Greek Communication Ability: Effective Visual Impairment: Limited Hearing Ability: Normal Poultry Service Technician Required: No Beliefs That Will Affect Care: None marital status: / Current Living Situation: Alone 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[employer] Feels Safe at Home: Yes Childhood Exposure to Second-Hand Smoke: No Diet: regular caffeine: Yes during the past year weight has: remained stable Dental Care, Regularly: Yes Physical Activity Frequency: Does not Exercise Seatbelt Use: always Sunscreen Use: Yes Assistive Devices: Cane, Denture - Upper and Glasses Review of Systems Review of Systems: Per HPI Physical Exam Physical Exam: General: well-appearing, no acute distress, obese HEENT: PERRL, EOMI, conjunctivae clear without injection, anicteric sclerae, moist mucous membranes, clear oropharynx without exudate or erythema Neck: supple, trachea midline, no thyromegaly, no JVD, no cervical lymphadenopathy CV: RRR, normal S1 and S2, no murmurs Resp: CTAB, no increased work of breathing, no crackles or wheezes Abd: Soft, nontender, nondistended, no guarding or rebound, no hepatosplenomegaly MSK: Normal bulk of all four extremities Neuro: AOx3, no focal motor or sensory deficits Skin: +mild pallor, no rashes or lesions, warm and dry Ext: trace LE peripheral edema b/l with chronic venous stasis changes Results & Data Results & Data Vital Signs (Past 12 Hours) Vital Signs Temp Pulse Resp BP Pulse Ox O2 Del Method 07/16/22 21:22 Room Air 07/16/22 20:56 Room Air 07/16/22 20:37 36.7 C 83 17 158/63 H 97 Room Air Resident Activity Tracking Resident Involvement: Resident Care Provided Care Provided: Adult Hospital Medicine
[2022-07-17] MEDS ORDERED: CARBOHYDRATES FOR HYPOGLYCEMIA PO PRN (02:06)
[2022-07-17] MEDS ORDERED: GLUCAGON FOR INJ 1 MG VIAL SQ PRN (02:06)
[2022-07-17] MEDS ORDERED: DEXTROSE 50% 50 ML SYRINGE IV PRN (02:06)
[2022-07-17] MEDS ORDERED: LACTATED RINGER'S 1,000 ML IV SCH (02:06)
[2022-07-17] MEDS ORDERED: GLUCOSE 10 TAB/TUBE PO PRN (02:06)
[2022-07-17] MEDS ORDERED: GLUCOSE 40% GEL 15 GM TUBE PO PRN (02:06)
[2022-07-17] MEDS: PANTOprazole 40 MG in SYRINGE 0 ML IV SCH ×3 (03:49→20:02)
[2022-07-17] MEDS: INSULIN ASPART PER UNIT CHARGE SC SCH ×4 (06:40→20:43)
[2022-07-17 08:09] LABS: Calcium 8.3 mg/dl (8.6-10.3); Potassium 3.6 mmol/L (3.5-5.1)
[2022-07-17 08:15] LABS: BUN Creatinine Ratio 19.7 (10-20); Creatinine Clr Calc Pharmacy 64.2 ml/min; Est GFR (African American) 97.8 ml/min; Est GFR (Non-African American) 84.4 ml/min
[2022-07-17 08:21] LABS: Hematocrit (blood only) 27.8 % (37.0-47.0); Hemoglobin 8.6 g/dl (12.0-16.0); Mean Corpuscular Hemoglobin 26.5 pg (25.0-34.0); Mean Corpuscular Hgb Conc 30.9 g/dL (32.0-36.0); Mean Corpuscular Volume 85.8 fL (80.0-100.0); Mean Platelet Volume 11.8 fL (9.4-12.4); Platelet Count 91 K/uL (130-400); Platelet Estimate Decreased (Normal); RDW Coefficient of Variation 16.8 % (11.5-14.5); RDW Standard Deviation 53.1 fL (36.4-46.3); Red Blood Count 3.24 M/uL (4.20-5.40); White Blood Count 4.55 K/ul (4.8-10.8)
--- NOTE | 2022-07-17 08:25 | XRay Report ---
XR chest 1V portable CLINICAL HISTORY: Dyspnea TECHNIQUE: Single frontal radiograph of the chest was obtained. Comparison: Comparison is made to chest radiograph 01/15/2019 FINDINGS: No lines and tubes are seen. Cardiomegaly is noted. Prominence and cephalization of the vasculature i s seen. Atelectasis is noted. No evidence of pleural effusion or pneumothorax. IMPRESSION: Cardiomegaly and mild pulmonary edema. ACT 112: Negative or not required by law. Electronically signed by: Mauro Baum M.D. 07/17/2022 8:23 AM
[2022-07-17 08:33] LABS: Ferritin 9.5 ng/ml (8-388)
[2022-07-17] MEDS: VERAPAMIL HCL 180 MG TABCR PO SCH (09:42)
[2022-07-17] MEDS: LANTUS PER UNIT CHARGE SQ SCH ×2 (09:42→20:43)
[2022-07-17] MEDS: LOSARTAN POTASSIUM 50 MG TAB PO SCH (09:42)
--- NOTE | 2022-07-17 10:41 | Gastrointestinal Consultation ---
Date of Consultation July 17, 2022 Assessment & Plan (1) Anemia: (2) GI bleed: Plan Discussed case with Dr. Will who advised on plan. - continue protonix 40mg IV BID. - will plan to add patient on for EGD tomorrow for further evaluation. - continue to trend H/H, transfuse as needed. currently hgb stable. History of Present Illness Reason for Consultation: GI bleeding Requesting Physician: Tanesha Armstrong MD Attending Physician: Shiloh Mosquera MD History of Present Illness 82 year old female with past history of iron deficiency anemia, IDDM2 with neuropathy, GERD, HLD, HTN who presented to the ED with complaints of dyspnea over the past month that had worsened in the past few days. She also has noted dark stools over the past month though was on iron supplementation for history of anemia. Upon evaluation in the ED her hgb was found to be 7.2. she was ordered 1 unit while in the ED. Hgb 07/17 had improved to 8.6. She denies any nausea, vomiting, heartburn, dysphagia, abdominal pain, unintentional weight loss, or brbpr. Colonoscopy 05/30/22 multiple nonbleeding angiectasias. APC treated. diverticulosis. EGD 05/30/22 large esophageal varices that were banded. portal hypertensive gastropathy. Allergies Allergy/AdvReac Type Severity Reaction Status Date / Time amoxicillin Allergy Severe hives Verified 07/14/22 09:07 Respdifficulty atorvastatin Allergy Intermediate Rash/Hives Verified 07/14/22 09:07 ezetimibe Allergy Intermediate Hives/Rash Verified 07/14/22 09:07 glyburide Allergy Intermediate Rash/Hives Verified 07/14/22 09:07 hydrocodone Allergy Intermediate RASH Verified 07/14/22 09:07 metformin Allergy Intermediate HIVES Verified 07/14/22 09:07 Penicillins Allergy Intermediate HIVES Verified 07/14/22 09:07 azithromycin Allergy Mild hives/rash Verified 07/14/22 09:07 camphor [From Salonpas] Allergy Mild Rash Verified 07/14/22 09:07 isopropyl alcohol Allergy Mild BLISTERS Verified 07/14/22 09:07 latex Allergy Mild Rash Verified 07/14/22 09:07 lisinopril Allergy Mild Cough Verified 07/14/22 09:07 lovastatin Allergy Mild Rash/Hives Verified 07/14/22 09:07 menthol [From Salonpas] Allergy Mild Rash Verified 07/14/22 09:07 methyl salicylate Allergy Mild Rash Verified 07/14/22 09:07 [From Salonpas] oxycodone Allergy Mild RASH Verified 07/14/22 09:07 pioglitazone Allergy Mild Rash/Hives Verified 07/14/22 09:07 propoxyphene Allergy Mild RASH HIVES Verified 07/14/22 09:07 propylene glycol Allergy Mild BLISTERS Verified 07/14/22 09:07 ranitidine Allergy Mild Rash/Hives Verified 07/14/22 09:07 rosuvastatin Allergy Mild Rash/Hives Verified 07/14/22 09:07 simvastatin Allergy Mild Muscles Verified 07/14/22 09:07 Ache Sulfa (Sulfonamide Allergy Mild GI UPSET Verified 07/14/22 09:07 Antibiotics) tramadol Allergy Mild Hives/Rash Verified 07/14/22 09:07 morphine Allergy Unknown per PCP Verified 07/14/22 09:07 records pravastatin Allergy Unknown per PCP Verified 07/14/22 09:07 records zinc Allergy Unknown Unknown Verified 07/14/22 09:07 capsaicin AdvReac Intermediate BLISTERS Verified 07/14/22 09:07 diclofenac AdvReac Intermediate BLISTERS Verified 07/14/22 09:07 clindamycin AdvReac Mild Rash Verified 07/14/22 09:07 ibuprofen AdvReac Mild AVOIDS Verified 07/14/22 09:07 SECONDARY TO STOMACH UPSET Home Medications Medication Instructions Recorded Confirmed Type aspirin 81 mg tablet,delayed 81 mg PO QAM 01/19/19 07/14/22 History release carboxymethylcellulose 0.5 1 drp ophthalmic (eye) QID 04/27/20 07/14/22 History %-glycerin 0.9 % eye drops (Refresh Optive) ferrous sulfate 142 mg (45 mg 142 mg PO QAM 04/27/20 07/14/22 History iron) tablet,extended release (Slow Fe) blood sugar diagnostic #100 ea 10/06/21 07/14/22 Rx compress.stocking,knee,reg,lrg #1 packet 10/19/21 07/14/22 Rx Walking Cane #1 ea 12/01/21 07/14/22 Rx ergocalciferol (vitamin D2) 1,250 50,000 unit PO WEEKLY #8 caps 01/18/22 07/14/22 Rx mcg (50,000 unit) capsule verapamil 180 mg tablet,extended 270 mg PO QAM #135 tabs 02/24/22 07/14/22 Rx release acetaminophen 650 mg 1,300 mg PO Q12H 05/24/22 07/14/22 History tablet,extended release furosemide 20 mg tablet 20 mg PO QAM 05/24/22 07/14/22 History insulin detemir U-100 100 unit/mL 8 unit subcut UD 05/24/22 07/14/22 History (3 mL) subcutaneous pen (Levemir FlexPen) losartan 100 mg tablet 100 mg PO QAM 05/24/22 07/14/22 History pen needle, diabetic 31 gauge x #200 ea 06/12/22 07/14/22 Rx 3/16" (BD Ultra-Fine Mini Pen Needle) insulin aspart U-100 100 unit/mL See Rx Instructions subcut 06/19/22 07/14/22 Rx (3 mL) subcutaneous pen (Novolog .COMPLEX #15 mL FlexPen U-100 Insulin aspart) pantoprazole 40 mg tablet,delayed 40 mg PO BID GERD #180 tabs 06/19/22 07/14/22 Rx release Patient History Medical History Anemia Diabetes mellitus type 2, insulin dependent Dry eye syndrome Gait disturbance GERD (gastroesophageal reflux disease) Hiatal hernia Hyperlipidemia Hypertension Morbid obesity with BMI of 40.0-44.9, adult Osteoarthritis Peripheral neuropathy Right knee DJD Temporal arteritis Surgical History History of ankle surgery RT History of arthroscopic knee surgery RT/LEFT History of cataract surgery RT/LEFT History of colonoscopy History of esophagogastroduodenoscopy (EGD) History of temporal artery biopsy (01/16/19) Bilateral Temporal Artery Biopsy Dr. Ward 01/16/19 Hx of eye surgery Right Eye, retinal surgery done by Dr. Ruiz, done 05/03/20 S/P arthroscopy of shoulder LEFT X 2 (FATTY TUMOR REMOVED) S/P TKR (total knee replacement) LEFT Slow to wake up after anesthesia [place] teeth removed Family History Mother Diabetes Heart disease Hypertension Family history of diabetes mellitus Sister Diabetes Cancer liver Hypertension Family history of diabetes mellitus Father Heart disease Brother Hypertension Family history of diabetes mellitus Other No family history of adverse response to anesthesia Denies family history of Ovarian cancer Prostate cancer Myocardial infarction Breast cancer Colorectal cancer Social History Smoking Status: Never smoker Second Hand Exposure: Yes ( smoked); Do You Dip or Chew Tobacco: No; Hx Alcohol Use: No Hx Substance Use: No Preferred Language: Danish Communication Ability: Effective Visual Impairment: Limited Hearing Ability: Normal Utilization Engineer Required: No Beliefs That Will Affect Care: None marital status: / Current Living Situation: Alone 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[employer] Other Information That Helps Us Care for You: No Feels Safe at Home: Yes Safety Concerns: Feels Safe At This Time Childhood Exposure to Second-Hand Smoke: No Diet: regular caffeine: Yes during the past year weight has: remained stable Dental Care, Regularly: Yes Physical Activity Frequency: Does not Exercise Seatbelt Use: always Sunscreen Use: Yes Assistive Devices: Denture - Upper, Denture - Lower and Glasses Review of Systems Review of Systems: All systems reviewed & are unremarkable except as noted in Subjective Physical Exam Constitutional: WD/WN, vitals as above Respiratory: normal respiratory effort, lungs clear to auscultation Cardiovascular: RRR, no murmur, no edema Gastrointestinal (Abdomen): normal bowel sounds, soft, nontender, no hepatosplenomegaly Skin: no rashes, warm and dry Psychiatric: Orientation: alert and oriented x 3 Affect: euthymic affect Results & Data Vital Signs (Past 12 Hours) Vital Signs Temp Pulse Pulse Resp BP BP Pulse Ox 07/17/22 08:00 93 H 07/17/22 07:51 98.1 F 85 20 147/72 H 95 07/17/22 01:46 82 07/17/22 03:48 97.9 F 84 18 134/72 95 07/17/22 03:24 97.5 F L 87 20 102/66 94 07/17/22 01:15 07/17/22 01:15 97.7 F 84 18 96 07/17/22 02:24 97.7 F 86 18 143/75 H 96 07/17/22 01:24 97.7 F 84 18 154/81 H 96 07/17/22 00:50 97.3 F L 78 18 169/77 H 98 07/17/22 00:39 97.9 F 76 20 163/71 H 96 07/17/22 00:24 97.9 F 81 20 164/62 H 96 O2 Del Method 07/17/22 08:00 07/17/22 07:51 Room Air 07/17/22 01:46 07/17/22 03:48 07/17/22 03:24 07/17/22 01:15 Room Air 07/17/22 01:15 Room Air 07/17/22 02:24 07/17/22 01:24 07/17/22 00:50 07/17/22 00:39 07/17/22 00:24 PG Care Time/CCT Total # of Minutes Spent Total Time Spent with Patient: Total time spent is greater than 50% in coordination of care (as documented) at patient's floor/unit and/or counseling patient: Coding Level of Care Code 12907 INT INP/OBS CARE 1/40MIN Diagnoses Anemia D64.9 GI bleed K92.2 Time Spent (min) 40
[2022-07-17 11:00] LABS: Partial Thromboplastin Ratio 0.9; Partial Thromboplastin Time 25.6 Seconds (21.0-31.0); Prothrombin Time 11.4 Seconds (9.0-12.0)
--- NOTE | 2022-07-17 11:10 | XCELERA ---
[id number]
[2022-07-17] MEDS ORDERED: OPTIRAY 320 100ml IV ONE (11:11)
--- NOTE | 2022-07-17 11:45 | Electrocardiogram Report ---
Test Reason : Blood Pressure : / mmHG Vent. Rate : 083 BPM Atrial Rate : 083 BPM P-R Int : 168 ms QRS Dur : 118 ms QT Int : 436 ms P-R-T Axes : 050 035 038 degrees QTc Int : 512 ms Normal sinus rhythm Right bundle branch block Abnormal ECG When compared with ECG of 15-JAN-2019 14:56, Premature supraventricular complexes are no longer Present Nonspecific T wave abnormality has replaced inverted T waves in Inferior leads Confirmed by Ruben Gomes ([id number]) on 07/17/2022 11:44:49 AM Referred By: REFERRED SELF Confirmed By:Ruben Gomes
--- NOTE | 2022-07-17 11:59 | Hospitalist Progress Note ---
Date of Service July 17, 2022 Assessment & Plan (1) GI bleed: Plan: Presents with melena, drop in hemoglobin to 7.2 from baseline of 10.0 in 03/2022 Pt w/ known colonic angiectasias treated with laser therapy, and also had EGD with large esophageal varices which were banded on EGD and colonoscopy in 05/2022 No previous work-up for cirrhosis Is hemodynamically stable after 1 unit PRBCs transfused, hemoglobin now up to 9.0 Most likely not variceal bleed as she just had banding a few weeks ago and this is not a massive bleed Appreciate GI consultation-EGD on 07/18 -Continue pantoprazole 40 mg IV BID -Follow CBC, check coags-normal -Holding home aspirin (2) Cirrhosis: Plan: Presents with pancytopenia, GI bleed. With recent EGD with large esophageal varices banded in 05/2022 With abdominal distention, no abdominal pain, lower extremity edema-checked CT abdomen/pelvis-consistent with cirrhosis with mild ascites This is a new diagnosis of cirrhosis-she has never been told she had cirrhosis b efore She has a daughter who is 61 years old who currently has hepatocellular carcinoma She does not drink alcohol. Could be LAN cirrhosis given her obesity, but given family history, needs more work-up -Start Aldactone 25 mg p.o. daily-uptitrate as able to -Start propranolol 10 mg p.o. twice daily for portal hypertension-uptitrate as able to -Plan for repeat EGD tomorrow to see if needs more bands for varices-n.p.o. after midnight -Check MYA, antismooth muscle antibody, antimitochondrial antibody, ANCA, ceruloplasmin, hepatitis B and C, alpha-1 antitrypsin -Iron studies are quite low so do not suspect hemochromatosis -Check AFP for HCC screening in the morning -Will need outpatient hepatology follow-up -Follow CBC, CMP, INR -Needs low-sodium diet once diet is advanced (3) Portal hypertension: Plan: As above, starting propranolol (4) Pancytopenia: Plan: Acute blood loss on chronic iron deficiency anemia With thrombocytopenia in the 90s, WBC count 4 With hemoglobin low as above secondary to GI bleed and iron studies consistent with iron deficiency anemia. Normocytic Ferritin extremely low at 9-give Venofer daily x3 doses Transfuse as needed if hemoglobin drops or has further GI bleeding Likely all related to liver cirrhosis Check B12 and folate levels in the morning Follow CBC and transfuse as needed (5) BELL (dyspnea on exertion): Plan: -As above, likely due to anemia -Chest x-ray with mild pulmonary edema -Stable respiratory status on RA at present -Supplemental O2 as needed -Starting spironolactone (6) Elevated troponin: Plan: -Troponin 218 on admission and then trended down to 145, EKG without ischemic changes -Pt denies active chest pain -Likely myocardial demand ischemia in setting of GI bleed -Echocardiogram normal (7) Type 2 diabetes mellitus treated with insulin: Plan: -Well-controlled, A1C 6.6% in 03/2022 -Lantus, SSI in hospital (8) Hypertension: Plan: Blood pressure is somewhat elevated -Continue losartan, verapamil Starting spironolactone and propranolol (9) Bilateral lower extremity edema: Plan: Likely secondary to hypervolemia from cirrhosis Starting spironolactone (10) GERD (gastroesophageal reflux disease): Plan: -Pantoprazole PO converted to IV as above (11) Vitamin D deficiency: Plan: Holding home vitamin D supplement Plan DVT prophylaxis-hold off on chemical anticoagulation due to GI bleeding Disposition-continued stay on medical floor telemetry Admission and Anticipated Discharge Date Admission Date: July 17, 2022 Subjective Patient reports feeling somewhat better. No melena in at least a couple of days. Denies abdominal pains or heartburn. She has noticed her abdomen has been getting more distended lately. She also has lower extremity swelling over the last year. Telemetry with normal sinus rhythm, PACs, rates in the 80s Physical Exam Constitutional: WD/WN, vitals as above Neck: trachea midline, no thyromegaly Respiratory: normal respiratory effort, lungs clear to auscultation Cardiovascular: Rate/Rhythm: regular rate and regular rhythm Heart Sounds: no murmur Extremities: + edema (1+ pitting edema of the legs to the knees bilaterally) Chest (Breasts): Chest: normal inspection of chest Gastrointestinal (Abdomen): normal bowel sounds, soft, nontender, no he patosplenomegaly Musculoskeletal: Extremities: extremities normal to inspection; no cyanosis and no clubbing Skin: no rashes, warm and dry Neurologic: moves all extremities and awake; no focal motor deficits Psychiatric: A+Ox3, euthymic affect Results & Data Results & Data Vital Signs (Past 12 Hours) Vital Signs Temp Pulse Pulse Resp BP BP Pulse Ox 07/17/22 11:27 36.6 C 77 18 144/71 H 94 07/17/22 08:00 93 H 07/17/22 07:51 36.7 C 85 20 147/72 H 95 07/17/22 01:46 82 07/17/22 03:48 36.6 C 84 18 134/72 95 07/17/22 03:24 36.4 C L 87 20 102/66 94 07/17/22 01:15 07/17/22 01:15 36.5 C 84 18 96 07/17/22 02:24 36.5 C 86 18 143/75 H 96 07/17/22 01:24 36.5 C 84 18 154/81 H 96 07/17/22 00:50 36.3 C L 78 18 169/77 H 98 07/17/22 00:39 36.6 C 76 20 163/71 H 96 07/17/22 00:24 36.6 C 81 20 164/62 H 96 O2 Del Method 07/17/22 11:27 Room Air 07/17/22 08:00 07/17/22 07:51 Room Air 07/17/22 01:46 07/17/22 03:48 07/17/22 03:24 07/17/22 01:15 Room Air 07/17/22 01:15 Room Air 07/17/22 02:24 07/17/22 01:24 07/17/22 00:50 07/17/22 00:39 07/17/22 00:24 Laboratory Results CBC x2, BMP, troponin, iron studies all reviewed Diagnostic Findings CT abdomen/pelvis reviewed by me the images personally and added Aldactone and propranolol for cirrhosis with portal hypertension based on my reading of the CT scan. PG Care Time/CCT Total # of Minutes Spent Total Time Spent with Patient: Total time spent is greater than 50% in coordination of care (as documented) at patient's floor/unit and/or counseling patient: Coding Level of Care Code 25775 SUB INP/OBS CARE 3/50MIN Diagnoses GI bleed K92.2 Cirrhosis K74.60 Portal hypertension K76.6 Pancytopenia D61.818 BELL (dyspnea on exertion) R06.09 Elevated troponin R77.8 Type 2 diabetes mellitus treated with insulin E11.9; Z79.4 Hypertension I10 Bilateral lower extremity edema R60.0 GERD (gastroesophageal reflux disease) K21.9 Vitamin D deficiency E55.9
[2022-07-17 12:03] LABS: Basophils # (auto) 0.02 K/uL (0-0.2); Basophils % (auto) 0.4 %; Eosinophils # (auto) 0.19 K/uL (0-0.50); Eosinophils % (auto) 3.5 %; Hematocrit (blood only) 28.9 % (37.0-47.0); Immature Granulocytes # (auto) 0.02 K/uL (0.01-0.20); Immature Granulocytes % (auto) 0.4 %; Lymphocytes # (auto) 1.55 K/uL (1.2-3.4); Lymphocytes % (auto) 28.2 %; Mean Corpuscular Hemoglobin 26.3 pg (25.0-34.0); Mean Corpuscular Hgb Conc 31.1 g/dL (32.0-36.0); Mean Corpuscular Volume 84.5 fL (80.0-100.0); Mean Platelet Volume 11.4 fL (9.4-12.4); Monocytes # (auto) 0.52 K/uL (0.11-0.59); Monocytes % (auto) 9.5 %; Platelet Count 100 K/uL (130-400); RDW Coefficient of Variation 16.8 % (11.5-14.5); RDW Standard Deviation 51.8 fL (36.4-46.3); Red Blood Count 3.42 M/uL (4.20-5.40)
[2022-07-17] MEDS: IRON SUCROSE 300 MG in SODIUM CHLORIDE 0.9% 250 ML IV SCH (13:09)
[2022-07-17] MEDS: SPIRONOLACTONE 25 MG TAB PO SCH (13:09)
--- NOTE | 2022-07-17 13:09 | CT Scan Report ---
CT abd pelvis IV con only CLINICAL HISTORY: GI bleed,suspect cirrhosis TECHNIQUE: Helical axial images of the abdomen and pelvis were obtained and displayed. Automated dose lowering techniques and/or adjustment according to patient size were utilized for this exam. This e xam was performed with intravenous contrast. CT DOSE: 1389.17 mGy.cm COMPARISON: None available at the time of this dictation. FINDINGS: Lower chest: Bibasilar atelectasis versus scarring is seen. Cardiomegaly is seen. Liver: Nodular contour of the liver is seen compatible with cirrhosis. Gallbladder and biliary tree: No calcified gallstones. Normal caliber wall. No intra- or extrahepatic biliary ductal dilation. Pancreas: Unremarkable, no focal lesions. Spleen: Mild prominence of the spleen is noted. Adrenals: Unremarkable. Kidneys and ureters: Subcentimeter hypodensities are too small to characterize. Bladder: Unremarkable. Reproductive organs: Unremarkable. Bowel: Diverticulosis is seen without evidence of diverticulitis. The appendix is normal. A hiatal he rnia is seen. Lymph nodes Retroperitoneal: Unremarkable. Pelvic: Unremarkable. Mesenteric: Unremarkable. Peritoneum: Mild ascites is seen. Vessels: Atherosclerotic calcifications are seen. Abdominal wall: A fat-containing umbilical hernia is seen. Bones: Degenerative changes in the visualized spine. IMPRESSION: 1. Cirrhosis is seen with mild ascites. 2. Diverticulosis without diverticulitis. 3. Additional findings as above. ACT 112: Negative or not required by law. Electronically signed by: Mauro Baum M.D. 07/17/2022 1:08 PM
[2022-07-17] MEDS: PROPRANOLOL HCL 10 MG TAB PO SCH ×2 (17:06→20:59)
[2022-07-18] MEDS ORDERED: ALBUT/IPRATROP 3MG/0.5MG NEB 3 ML VIAL NEB STA (00:15)
[2022-07-18 06:29] LABS: INR 1.1 (0.9-1.1); Prothrombin Time 11.5 Seconds (9.0-12.0)
[2022-07-18 06:35] LABS: Basophils # (auto) 0.05 K/uL (0-0.2); Basophils % (auto) 0.6 %; Eosinophils # (auto) 0.25 K/uL (0-0.50); Eosinophils % (auto) 3.1 %; Hematocrit (blood only) 27.4 % (37.0-47.0); Hemoglobin 8.5 g/dl (12.0-16.0); Immature Granulocytes # (auto) 0.02 K/uL (0.01-0.20); Immature Granulocytes % (auto) 0.2 %; Lymphocytes % (auto) 22.4 %; Mean Corpuscular Hemoglobin 26.4 pg (25.0-34.0); Mean Corpuscular Volume 85.1 fL (80.0-100.0); Mean Platelet Volume 11.9 fL (9.4-12.4); Monocytes # (auto) 0.91 K/uL (0.11-0.59); Monocytes % (auto) 11.3 %; Neutrophils % (auto) 62.4 %; Platelet Count 108 K/uL (130-400); RDW Standard Deviation 52.5 fL (36.4-46.3); Red Blood Count 3.22 M/uL (4.20-5.40); White Blood Count 8.03 K/ul (4.8-10.8)
[2022-07-18 06:43] LABS: Albumin Globulin Ratio 1.4 (0.9-2); Albumin Level 3.2 gm/dl (3.4-5.0); BUN Creatinine Ratio 14.5 (10-20); Bilirubin,Total 0.9 mg/dl (0.2-1.0); Calcium 8.2 mg/dl (8.6-10.3); Creatinine Clr Calc Pharmacy 63.5 ml/min; Est GFR (African American) 97.3 ml/min; Globulin 2.3 gm/dl (2.5-4.0); Magnesium 1.9 mg/dl (1.7-2.4); Total Protein 5.5 gm/dl (6.0-8.3)
[2022-07-18 07:12] LABS: Vitamin B12 466 pg/ml (180-914)
--- NOTE | 2022-07-18 08:24 | History & Physical Bridge Note ---
Date of Service July 18, 2022 History & Physical Bridge Note I have examined the patient, reviewed the History & Physical and in the interval since the performance of the History & Physical I have noted the following changes of clinical significance: no changes noted. Patient is planned for an EGD today. HGB today 8.5. It was 9 yesterday. She tells me that yesterday stools were still dark. she denies nausea, vomiting, abdominal pain, heartburn, chest pain. she is SOB but tells me this is at baseline. New Cirrhosis seen on CT yesterday with mild ascites. no etoh use. Likely related to fatty liver, but chronic liver disease labs and hep panel were ordered.
[2022-07-18] MEDS: LANTUS PER UNIT CHARGE SQ SCH ×2 (09:22→20:26)
[2022-07-18] MEDS: INSULIN ASPART PER UNIT CHARGE SC SCH ×4 (09:22→20:25)
[2022-07-18] MEDS: PROPRANOLOL HCL 10 MG TAB PO SCH ×2 (09:25→20:15)
[2022-07-18] MEDS: VERAPAMIL HCL 180 MG TABCR PO SCH (09:25)
[2022-07-18] MEDS: LOSARTAN POTASSIUM 50 MG TAB PO SCH (09:25)
[2022-07-18] MEDS: PANTOprazole 40 MG in SYRINGE 0 ML IV SCH ×2 (09:25→20:14)
[2022-07-18] MEDS: SPIRONOLACTONE 25 MG TAB PO SCH (09:26)
[2022-07-18] MEDS: IRON SUCROSE 300 MG in SODIUM CHLORIDE 0.9% 250 ML IV SCH (10:57)
--- NOTE | 2022-07-18 14:14 | Hospitalist Progress Note ---
Date of Service July 18, 2022 Assessment & Plan (1) GI bleed: Plan: Recent melena stools at home with resulting acute blood loss anemia. Clinical picture c/w Upper GI bleeding. Pt w/ known colonic angiectasias treated with laser therapy previously. Had EGD with large esophageal varices which were banded on EGD just a few weeks ago (05/2022). s/p 1 unit of PRBCs since admission. Stable h/h today. Repeat CBC in am tomorrow. EGD today to reassess for recurrent bleeding, need for additional variceal banding, etc. Continue pantoprazole 40 mg IV BID. Hold aspirin. (2) Cirrhosis: Plan: Clinical picture c/w cirrhosis. Imaging of abdomen c/w cirrhosis. s/p EGD 1 month ago with esophageal varices s/p banding. Now with decompensation/volume overload as well as GI bleeding. Aldactone 25 mg p.o. daily started this admission. Propranolol 10 mg p.o. twice daily for portal hypertension started. hold CLARA. W/u for cirrhosis dispatched including MYA, antismooth muscle antibody, antimitochondrial antibody, ANCA, ceruloplasmin, hepatitis B and C, alpha-1 antitrypsin. Ferritin low thus no hemochromatosis. Suspect, however, her cirrhosis will be from LAN but again await above labs. AFP for HCC screening sent today as well. Resume lasix tomorrow. Transfusional support for #1. Low salt diet & nutritional counseling needed to prevent fluid overload. Labs in am. Await today's EGD. Appreciate [facility] consult & assistance. (3) Portal hypertension: Plan: propranolol BID initiated this admission titrate as tolerated (4) Pancytopenia: Plan: Pancytopenia likely 2nd to cirrhosis Also with Acute blood loss anemia on chronic iron deficiency anemia -- both due to GI blood loss s/p 1 unit of PRBCs overnight with improved H/H today Ferritin 9 thus Venofer IV daily x 3 doses B12/folate wnl daily CBC while here (5) BELL (dyspnea on exertion): Plan: 2nd to pulm edema in the setting of decompensated cirrhosis Anemia may have contributed as well Resume lasix in am tomorrow (6) Elevated troponin: Plan: HS Troponin 218 on admission and then trended down to 145 Likely myocardial demand ischemia in setting of GI bleed Echocardiogram normal with preserved EF and normal LV wall motion no evidence ACS (7) Type 2 diabetes mellitus treated with insulin: Plan: Well-controlled, A1C 6.6% in 03/2022 Rachel Miranda (8) Hypertension: Plan: Starting spironolactone and propranolol Hold losartan Cont verapamil (9) Bilateral lower extremity edema: Plan: Secondary to hypervolemia from cirrhosis Spironolactone initiated this admission Resume lasix tomorrow if labs are stable (10) GERD (gastroesophageal reflux disease): Plan: PPI IV (11) Acute blood loss anemia: Plan: 2nd to presumed upper GI blood loss (melena stools, known varices seen on EGD 05/2022, etc) to have EGD today by [facility] s/p 1 unit PRBCs giving Venofer x 3 doses as below cbc daily (12) Iron deficiency anemia: Plan: severe with ferritin <10 venofer 300mg IV daily x 3 days B12/folate noted to be wnl Plan left message for daughter, Chela Antony, this evening on her voicemail very complex medical care due to cirrhosis and GI bleeding Admission and Anticipated Discharge Date Admission Date: July 17, 2022 Subjective patient sitting in chair comfortably awaiting her EGD she is less short of breath in comparison to admission although she reports not doing much since admission her dyspnea was much worse with exertion at home states that stools at home were "dark" of late denies any abd pain but has had abd distension LE edema has been severe at home recently despite taking daily lasix tele overnight wnl Review of Systems Review of Systems: gen - no fevers cv - no chest pain but has had worsening LE edema pulm - no cough GI - no vomiting Physical Exam Physical Exam: gen - morbidly obese, NAD, sitting in chair comfortably neck - no obvious JVD sitting at 90 degrees upright mouth - MMM heart - RRR, s1 s2 lungs - crackles b/l bases, decreased BS bases, no wheeze abd - distended with ascites, BS+, NT, no hepatomegaly skin - no palmar erythema, no rash; venous stasis changes b/l almendarez ext - pulses 2+ b/l, 2-3+ edema b/l neuro - no asterixis psych - a/o x 3 Results & Data Results & Data Vital Signs (Past 12 Hours) Vital Signs Temp Pulse Pulse Resp BP Pulse Ox O2 Del Method 07/18/22 08:45 74 07/18/22 12:15 36.6 C 61 18 124/70 92 Room Air 07/18/22 07:46 36.6 C 78 17 161/82 H 95 Nasal Cannula 07/18/22 05:20 36.6 C 86 20 116/68 93 Nasal Cannula 07/18/22 02:18 68 O2 Flow Rate 07/18/22 08:45 07/18/22 12:15 07/18/22 07:46 2 07/18/22 05:20 2 07/18/22 02:18 Laboratory Results Laboratory Results - last 24 hr 07/18/22 07/18/22 07/18/22 05:33 05:33 05:33 WBC 8.03 RBC 3.22 L Hgb 8.5 L Hct 27.4 L MCV 85.1 MCH 26.4 MCHC 31.0 L RDW Std Deviation 52.5 H RDW Coeff of Zo 17.0 H Plt Count 108 L MPV 11.9 Immature Gran % (Auto) 0.2 Neut % (Auto) 62.4 Lymph % (Auto) 22.4 [place] % (Auto) 11.3 Eos % (Auto) 3.1 Baso % (Auto) 0.6 Neut # (Auto) 5.00 Lymph # (Auto) 1.80 [place] # (Auto) 0.91 H Eos # (Auto) 0.25 Baso # (Auto) 0.05 Immature Gran # (Auto) 0.02 PT 11.5 INR 1.1 Sodium 141 Potassium 4.0 Chloride 110 H Carbon Dioxide 25 Anion Gap 6 BUN 9 Creatinine 0.62 Est Cr Clr Drug Dosing 63.5 Est GFR ( Amer) 97.3 Est GFR (Non-Af Amer) 84.0 BUN/Creatinine Ratio 14.5 Glucose 109 H POC Glucose Calcium 8.2 L Magnesium 1.9 Total Bilirubin 0.9 AST 23 ALT 13 Alkaline Phosphatase 93 Total Protein 5.5 L Albumin 3.2 L Globulin 2.3 L Albumin/Globulin Ratio 1.4 Vitamin B12 Folate 07/18/22 07/18/22 07/18/22 05:33 07:31 11:23 WBC RBC Hgb Hct MCV MCH MCHC RDW Std Deviation RDW Coeff of Zo Plt Count MPV Immature Gran % (Auto) Neut % (Auto) Lymph % (Auto) [place] % (Auto) Eos % (Auto) Baso % (Auto) Neut # (Auto) Lymph # (Auto) [place] # (Auto) Eos # (Auto) Baso # (Auto) Immature Gran # (Auto) PT INR Sodium Potassium Chloride Carbon Dioxide Anion Gap BUN Creatinine Est Cr Clr Drug Dosing Est GFR ( Amer) Est GFR (Non-Af Amer) BUN/Creatinine Ratio Glucose POC Glucose 110 H 113 H Calcium Magnesium Total Bilirubin AST ALT Alkaline Phosphatase Total Protein Albumin Globulin Albumin/Globulin Ratio Vitamin B12 466 Folate > 22.30 07/18/22 07/18/22 16:26 20:18 WBC RBC Hgb Hct MCV MCH MCHC RDW Std Deviation RDW Coeff of Zo Plt Count MPV Immature Gran % (Auto) Neut % (Auto) Lymph % (Auto) [place] % (Auto) Eos % (Auto) Baso % (Auto) Neut # (Auto) Lymph # (Auto) [place] # (Auto) Eos # (Auto) Baso # (Auto) Immature Gran # (Auto) PT INR Sodium Potassium Chloride Carbon Dioxide Anion Gap BUN Creatinine Est Cr Clr Drug Dosing Est GFR ( Amer) Est GFR (Non-Af Amer) BUN/Creatinine Ratio Glucose POC Glucose 130 H 115 H Calcium Magnesium Total Bilirubin AST ALT Alkaline Phosphatase Total Protein Albumin Globulin Albumin/Globulin Ratio Vitamin B12 Folate PG Care Time/CCT Total # of Minutes Spent Total Time Spent with Patient: Total time spent is greater than 50% in coordination of care (as documented) at patient's floor/unit and/or counseling patient: Coding Level of Care Code 17534 SUB INP/OBS CARE 2/35MIN Diagnoses GI bleed K92.2 Cirrhosis K74.60 Portal hypertension K76.6 Pancytopenia D61.818 BELL (dyspnea on exertion) R06.09 Elevated troponin R77.8 Type 2 diabetes mellitus treated with insulin E11.9; Z79.4 Hypertension I10 Bilateral lower extremity edema R60.0 GERD (gastroesophageal reflux disease) K21.9 Acute blood loss anemia D62 Iron deficiency anemia D50.9
--- NOTE | 2022-07-18 14:36 | Anesthesiology Consultation ---
Date of Service July 18, 2022 Assessment & Plan Chart Review Chart Review: Acceptable Risk for Surgery Consults Requested none ASA ASA3 Proposed Anesthesia Anesthesia Type: MAC Risk / Benefits Reviewed With: PT / POA / Parent / Guardian, Accepts Plan and Informed Consent Obtained History Surgery Operation Date: 07/18/22 16:45 Proposed Procedures p Esophagogastroduodenoscopy Dr. Nicolette Will MD Height/Weight Height: 4 ft 7 in Weight: 92.8 kg Allergies Allergy/AdvReac Type Severity Reaction Status Date / Time amoxicillin Allergy Severe hives Verified 07/18/22 14:19 Respdifficulty atorvastatin Allergy Intermediate Rash/Hives Verified 07/18/22 14:19 ezetimibe Allergy Intermediate Hives/Rash Verified 07/18/22 14:19 glyburide Allergy Intermediate Rash/Hives Verified 07/18/22 14:19 hydrocodone Allergy Intermediate RASH Verified 07/18/22 14:19 metformin Allergy Intermediate HIVES Verified 07/18/22 14:19 Penicillins Allergy Intermediate HIVES Verified 07/18/22 14:19 azithromycin Allergy Mild hives/rash Verified 07/18/22 14:19 camphor [From Salonpas] Allergy Mild Rash Verified 07/18/22 14:19 isopropyl alcohol Allergy Mild BLISTERS Verified 07/18/22 14:19 latex Allergy Mild Rash Verified 07/18/22 14:19 lisinopril Allergy Mild Cough Verified 07/18/22 14:19 lovastatin Allergy Mild Rash/Hives Verified 07/18/22 14:19 menthol [From Salonpas] Allergy Mild Rash Verified 07/18/22 14:19 methyl salicylate Allergy Mild Rash Verified 07/18/22 14:19 [From Salonpas] oxycodone Allergy Mild RASH Verified 07/18/22 14:19 pioglitazone Allergy Mild Rash/Hives Verified 07/18/22 14:19 propoxyphene Allergy Mild RASH HIVES Verified 07/18/22 14:19 propylene glycol Allergy Mild BLISTERS Verified 07/18/22 14:19 ranitidine Allergy Mild Rash/Hives Verified 07/18/22 14:19 rosuvastatin Allergy Mild Rash/Hives Verified 07/18/22 14:19 simvastatin Allergy Mild Muscles Verified 07/18/22 14:19 Ache Sulfa (Sulfonamide Allergy Mild GI UPSET Verified 07/18/22 14:19 Antibiotics) tramadol Allergy Mild Hives/Rash Verified 07/18/22 14:19 morphine Allergy Unknown per PCP Verified 07/18/22 14:19 records pravastatin Allergy Unknown per PCP Verified 07/18/22 14:19 records zinc Allergy Unknown Unknown Verified 07/18/22 14:19 capsaicin AdvReac Intermediate BLISTERS Verified 07/18/22 14:19 diclofenac AdvReac Intermediate BLISTERS Verified 07/18/22 14:19 clindamycin AdvReac Mild Rash Verified 07/18/22 14:19 ibuprofen AdvReac Mild AVOIDS Verified 07/18/22 14:19 SECONDARY TO STOMACH UPSET Medications Home Medications Medication Instructions Recorded Confirmed Last Taken aspirin 81 mg tablet,delayed 81 mg PO QAM 01/19/19 07/14/22 05/26/22 release carboxymethylcellulose 0.5 1 drp ophthalmic (eye) QID 04/27/20 07/14/22 05/29/22 %-glycerin 0.9 % eye drops (Refresh Optive) ferrous sulfate 142 mg (45 mg 142 mg PO QAM 04/27/20 07/14/22 05/26/22 iron) tablet,extended release (Slow Fe) blood sugar diagnostic #100 ea 10/06/21 07/14/22 Unknown compress.stocking,knee,reg,lrg #1 packet 10/19/21 07/14/22 Unknown Walking Cane #1 ea 12/01/21 07/14/22 Unknown ergocalciferol (vitamin D2) 1,250 50,000 unit PO WEEKLY #8 caps 01/18/22 07/14/22 05/27/22 mcg (50,000 unit) capsule verapamil 180 mg tablet,extended 270 mg PO QAM #135 tabs 02/24/22 07/14/22 05/30/22 08:00 release acetaminophen 650 mg 1,300 mg PO Q12H 05/24/22 07/14/22 05/29/22 tablet,extended release insulin detemir U-100 100 unit/mL 8 unit subcut UD 05/24/22 07/14/22 05/29/22 (3 mL) subcutaneous pen (Levemir FlexPen) losartan 100 mg tablet 100 mg PO QAM 05/24/22 07/14/22 05/30/22 08:00 pen needle, diabetic 31 gauge x #200 ea 06/12/22 07/14/22 Unknown 3/16" (BD Ultra-Fine Mini Pen Needle) insulin aspart U-100 100 unit/mL See Rx Instructions subcut 06/19/22 07/14/22 Unknown (3 mL) subcutaneous pen (Novolog .COMPLEX #15 mL FlexPen U-100 Insulin aspart) pantoprazole 40 mg tablet,delayed 40 mg PO BID GERD #180 tabs 06/19/22 07/14/22 Unknown release furosemide 20 mg tablet 20 mg PO QAM #30 tabs 07/17/22 Unknown Active Medications Generic Name Dose Route Start Last Admin Trade Name Freq PRN Reason Stop Dose Admin Pantoprazole Sodium 40 mg/ 10 mls @ 5 mls/min 07/17/22 02:30 07/18/22 09:25 Syringe IV 08/16/22 02:29 5 mls/min BID TORREY Administration Iron Sucrose 300 mg/ Sodium 265 mls @ 176.667 mls/hr 07/17/22 12:30 07/18/22 13:22 Chloride IV 07/19/22 10:29 Infused QAM TORREY Infusion Insulin Aspart 0 units 07/17/22 21:00 07/18/22 13:04 Insulin Aspart Per Unit Charge SC 08/16/22 20:59 Not Given ACHS TORREY Insulin Glargine 5 units 07/17/22 09:00 07/18/22 09:22 Lantus Per Unit Charge SQ 08/16/22 08:59 5 units BID TORREY Administration Losartan Potassium 100 mg 07/17/22 09:00 07/18/22 09:25 Losartan Potassium 50 Mg Tab PO 08/16/22 08:59 100 mg QAM TORREY Administration Propranolol HCl 10 mg 07/17/22 16:00 07/18/22 09:25 Propranolol Hcl 10 Mg Tab PO 08/16/22 15:59 10 mg BID TORREY Administration Spironolactone 25 mg 07/17/22 12:15 07/18/22 09:26 Spironolactone 25 Mg Tab PO 08/16/22 12:14 25 mg QAM TORREY Administration Verapamil HCl 270 mg 07/17/22 09:00 07/18/22 09:25 Verapamil Hcl 180 Mg Tabcr PO 08/16/22 08:59 270 mg QAM TORREY Administration NPO Date Last Intake of Fluids: 07/17/22 Time Last Intake of Fluids: 18:00 Date Last Intake of Solids: 07/15/22 Time Last Intake of Solids: 18:00 Past Medical History Medical History Anemia Cirrhosis Diabetes mellitus type 2, insulin dependent Dry eye syndrome Gait disturbance GERD (gastroesophageal reflux disease) Hiatal hernia Hyperlipidemia Hypertension Morbid obesity with BMI of 40.0-44.9, adult Osteoarthritis Pancytopenia Peripheral neuropathy Portal hypertension Right knee DJD Temporal arteritis Exercise / Class Metabolic Activity II 4-5 Yardwork/Stairs/Walk up hill Past Family History Family History Mother Diabetes Heart disease Hypertension Family history of diabetes mellitus Sister Diabetes Cancer liver Hypertension Family history of diabetes mellitus Father Heart disease Brother Hypertension Family history of diabetes mellitus Other No family history of adverse response to anesthesia Denies family history of Ovarian cancer Prostate cancer Myocardial infarction Breast cancer Colorectal cancer Past Surgical History Surgical History History of ankle surgery RT History of arthroscopic knee surgery RT/LEFT History of cataract surgery RT/LEFT History of colonoscopy History of esophagogastroduodenoscopy (EGD) History of temporal artery biopsy (01/16/19) Bilateral Temporal Artery Biopsy Dr. Ward 01/16/19 Hx of eye surgery Right Eye, retinal surgery done by Dr. Ruiz, done 05/03/20 S/P arthroscopy of shoulder LEFT X 2 (FATTY TUMOR REMOVED) S/P TKR (total knee replacement) LEFT Slow to wake up after anesthesia [place] teeth removed Past Anesthesia History No Hx of Anesthesia Complications History of PONV No Hx of PONV Social History Smoking Status: Never smoker Do You Dip or Chew Tobacco: No Hx Alcohol Use: No Hx Substance Use: No substance use type: does not use Review of Systems ROS Unobtainable: All systems reviewed & are unremarkable except as noted in HPI & below Physical Exam Vital Signs Last Vital Signs Temp 36.6 C 07/18/22 14:20 Pulse 63 07/18/22 14:20 Resp 18 07/18/22 14:20 BP 117/57 L 07/18/22 14:20 Pulse Ox 96 07/18/22 14:20 O2 Del Method Room Air 07/18/22 14:20 O2 Flow Rate 2 07/18/22 14:20 Testing Laboratory Results 07/18/22 05:33 07/18/22 05:33 PT 11.5 Seconds (9.0-12.0) 07/18/22 05:33 INR 1.1 (0.9-1.1) 07/18/22 05:33 APTT 25.6 Seconds (21.0-31.0) 07/17/22 10:26 Blood Type O Positive 07/16/22 21:51 Antibody Screen NEGATIVE 07/16/22 21:51 07/18/22 07/18/22 11:23 07:31 POC Glucose 113 H 110 H
[2022-07-18] MEDS ORDERED: ATROPINE SULFATE 0.1 MG/ML 10ML SYR IV PRN (14:42)
[2022-07-18] MEDS ORDERED: ePHEDrine sulfate 50 MG/ML AMP IV PRN (14:42)
--- NOTE | 2022-07-18 15:41 | Anesthesiology Progress Note ---
Date of Service July 18, 2022 Anesthesia Post Procedure Vital Signs Vital Signs: Temp Pulse Pulse Resp BP Pulse Ox O2 Del Method 07/18/22 14:38 Nasal Cannula 07/18/22 14:20 36.6 C 63 18 117/57 L 96 Room Air 07/18/22 08:45 74 07/18/22 12:15 36.6 C 61 18 124/70 92 Room Air 07/18/22 07:46 36.6 C 78 17 161/82 H 95 Nasal Cannula 07/18/22 05:20 36.6 C 86 20 116/68 93 Nasal Cannula 07/18/22 02:06 36.7 C 77 18 134/70 95 Nasal Cannula 07/18/22 02:18 68 07/18/22 00:32 36.6 C 76 18 176/77 H 92 Nasal Cannula 07/18/22 00:27 74 20 98 Nasal Cannula 07/17/22 20:29 36.9 C 70 18 169/63 H 93 Room Air 07/17/22 20:16 Room Air O2 Flow Rate 07/18/22 14:38 2 07/18/22 14:20 2 07/18/22 08:45 07/18/22 12:15 07/18/22 07:46 2 07/18/22 05:20 2 07/18/22 02:06 2 07/18/22 02:18 07/18/22 00:32 2 07/18/22 00:27 2 07/17/22 20:29 07/17/22 20:16 Transfer of Care Handoff Completed per policy Notes Mental Status: alert / awake / arousable and participated in evaluation Nausea / Vomiting: adequately controlled Pain: adequately controlled Airway Patency, RR, SpO2: stable & adequate BP & HR: stable & adequate Hydration State: stable & adequate Anesthetic Complications: no major complications apparent and Pt Satisfied with anesthetic care
--- NOTE | 2022-07-18 15:52 | GI REPORT ---
Patient Name: Esperanza Trinidad Procedure Date: 07/18/2022 3:18 PM Date of : 1940 Admit Type: Inpatient Age: 82 Gender: Female Attending MD: Jd Will MD, Procedure: Upper GI endoscopy Providers: Jd Will MD Referring MD: Referred Self Indications: Unexplained iron deficiency anemia Medicines: Monitored Anesthesia Care Complications: No immediate complications. Estimated blood loss: None. Estimated Blood Loss: Estimated blood loss: none. Procedure: Pre-Anesthesia Assessment: - Prior Anticoagulants: The patient has taken no anticoagulant or antiplatelet agents. - ASA Grade Assessment: II - A patient with mild systemic disease. After obtaining informed consent, the endoscope was passed under direct vision. Throughout the procedure, the patient's blood pressure, pulse, and oxygen saturations were monitored continuously. The Endoscope was introduced through the mouth, and advanced to the second part of duodenum. The upper GI endoscopy was accomplished without difficulty. The patient tolerated the procedure well. Findings: One column of grade II varices with stigmata of recent bleeding were found at the gastroesophageal junction, 33 cm from the incisors. No red la signs were present. Two bands were successfully placed, resulting in deflation of varices. There was no bleeding at the end of the procedure. Mild portal hypertensive gastropathy was found in the stomach. The duodenal bulb and second portion of the duodenum were normal. Impression: - Grade II esophageal varices with stigmata of recent bleeding. Completely eradicated. Banded. - Portal hypertensive gastropathy. - Normal duodenal bulb and second portion of the duodenum. - No specimens collected. Recommendation: - Return patient to [facility] for [facility] care. - NPO today. NO NG tube next 24 hours -advance to clear liquids tomorrow morning if stable then advance as tolerated -protonix 40 mg daily -consider capsule endoscopy and/or colonoscopy as an outpatient. supportive care, IVFs trend H/H Jd Will MD 07/18/2022 3:52:13 PM This report has been signed electronically. Note Initiated On: 07/18/2022 3:18 PM Number of Addenda: 0 I attest to the content of the Intraoperative Record and orders documented therein, exceptions below {[id number]}
[2022-07-18] MEDS: ARTIFICIAL TEARS OP SCH ×2 (17:33→20:24)
[2022-07-18] MEDS: BENZONATATE 100 MG CAPSULE PO SCH (20:43)
[2022-07-18] MEDS ORDERED: CHLORASEPTIC 1.4% SOLN 180 ML BTL MT PRN (20:44)
[2022-07-19] MEDS ORDERED: Nursing to Pharmacy Communication SCH (04:15)
[2022-07-19] MEDS: INSULIN ASPART PER UNIT CHARGE SC SCH ×3 (05:14→16:58)
[2022-07-19 07:10] LABS: BUN Creatinine Ratio 18.5 (10-20); Calcium 8.3 mg/dl (8.6-10.3); Creatinine Clr Calc Pharmacy 62.3 ml/min; Est GFR (African American) 95.8 ml/min; Est GFR (Non-African American) 82.7 ml/min; Potassium 4.2 mmol/L (3.5-5.1)
[2022-07-19 08:35] LABS: Hemoglobin 9.2 g/dl (12.0-16.0); Mean Corpuscular Hemoglobin 26.4 pg (25.0-34.0); Mean Corpuscular Hgb Conc 30.7 g/dL (32.0-36.0); Mean Corpuscular Volume 86.2 fL (80.0-100.0); Mean Platelet Volume 11.5 fL (9.4-12.4); Nucleated RBC # (auto) 0.02 K/uL (0-0.12); Nucleated RBC % (auto) 0.2 %; Platelet Count 108 K/uL (130-400); RDW Coefficient of Variation 17.5 % (11.5-14.5); RDW Standard Deviation 54.6 fL (36.4-46.3); Red Blood Count 3.48 M/uL (4.20-5.40)
--- NOTE | 2022-07-19 09:41 | Communication Note ---
Date of Service: July 19, 2022 Patient tells me she is feeling well. no further melena. GI ros unremarkable. hgb improved. 07/19 hgb 9.2 07/18 hgb 8.5 she tells me she is hungry and wishes to eat. -Will advance her diet to clears. If she tolerates this, okay to advance further as tolerated. -upon discharge, would start protonix 40mg once daily. - follow up in office in 2 weeks.
[2022-07-19] MEDS: PANTOprazole 40 MG in SYRINGE 0 ML IV SCH ×2 (10:16→22:08)
[2022-07-19] MEDS: BENZONATATE 100 MG CAPSULE PO SCH ×3 (10:16→22:08)
[2022-07-19] MEDS: SPIRONOLACTONE 25 MG TAB PO SCH (10:17)
[2022-07-19] MEDS: VERAPAMIL HCL 180 MG TABCR PO SCH (10:17)
[2022-07-19] MEDS: PROPRANOLOL HCL 10 MG TAB PO SCH ×2 (10:17→22:08)
[2022-07-19] MEDS: ARTIFICIAL TEARS OP SCH ×4 (10:18→22:10)
[2022-07-19] MEDS: LANTUS PER UNIT CHARGE SQ SCH ×2 (10:21→22:28)
[2022-07-19] MEDS: IRON SUCROSE 300 MG in SODIUM CHLORIDE 0.9% 250 ML IV SCH (11:09)
[2022-07-19] MEDS: ACETAMINOPHEN 500 MG TAB PO PRN (15:00)
[2022-07-19] MEDS ORDERED: FUROSEMIDE 40 MG TAB PO ONE (16:53)
--- NOTE | 2022-07-19 20:56 | Hospitalist Progress Note ---
Date of Service July 19, 2022 Assessment & Plan (1) GI bleed: Plan: Recent melena stools at home with resulting acute blood loss anemia. Clinical picture c/w Upper GI bleeding. Pt w/ known colonic angiectasias treated with laser therapy previously. Had EGD with large esophageal varices which were banded on EGD just a few weeks ago (05/2022). s/p 1 unit of PRBCs since admission. Repeat EGD yesterday by Dr Will with additional esophageal varices s/p banding. There were signs that she may have had recent bleeding from such. Also with ongoing portal gastropathy. Continue pantoprazole 40 mg IV BID. Can likely change to PO PPI tomorrow. Hold aspirin. Advance diet to full liquids, and hopefully regular tomorrow (low salt) if H/H stable. (2) Cirrhosis: Plan: Clinical picture c/w cirrhosis. Imaging of abdomen c/w cirrhosis. s/p EGD 1 month ago with esophageal varices s/p banding. s/p EGD 07/18/22 with additional varices seen s/p 2 bands placed. Portal gastropathy also seen on EGD. Now with decompensation/volume overload as well as GI bleeding. Aldactone 25 mg p.o. daily started this admission. Propranolol 10 mg p.o. twice daily for portal hypertension started. hold CLARA. Lasix - increase to 40mg po daily, first dose now. W/u for cirrhosis dispatched including MYA, antismooth muscle antibody, antimitochondrial antibody, ANCA, ceruloplasmin, hepatitis B and C, alpha-1 antitrypsin. Ferritin low thus no hemochromatosis. Suspect, however, her cirrhosis will be from LAN but again await above labs. AFP for HCC screening pending. Transfusional support for #1. Low salt diet & nutritional counseling needed to prevent fluid overload. Labs in am. Appreciate [facility] [place] consult & assistance. Will ultimately need [place] [facility] [place] [facility] [place] (3) Portal hypertension: Plan: propranolol BID initiated this admission titrate as tolerated (4) Pancytopenia: Plan: Pancytopenia likely 2nd to cirrhosis Also with Acute blood loss anemia on chronic iron deficiency anemia -- both due to GI blood loss s/p 1 unit of PRBCs overnight with improved H/H today Ferritin 9 thus Venofer IV daily x 3 doses, dose #2 today B12/folate wnl daily CBC while here (5) BELL (dyspnea on exertion): Plan: 2nd to pulm edema in the setting of decompensated cirrhosis Anemia may have contributed as well Resume lasix Cont aldactone (6) Elevated troponin: Plan: HS Troponin 218 on admission and then trended down to 145 Likely myocardial demand ischemia in setting of GI bleed Echocardiogram normal with preserved EF and normal LV wall motion no evidence ACS (7) Type 2 diabetes mellitus treated with insulin: Plan: Well-controlled, A1C 6.6% in 03/2022 Lantus, Novolog SSI (8) Hypertension: Plan: Cont spironolactone and propranolol Cont verapamil Resume lasix CLARA on hold (9) Bilateral lower extremity edema: Plan: Secondary to hypervolemia from cirrhosis Spironolactone initiated this admission Resume lasix tomorrow if labs are stable Echo wnl with normal EF, etc (10) GERD (gastroesophageal reflux disease): Plan: PPI IV Change to PO PPI tomorrow (11) Acute blood loss anemia: Plan: 2nd to presumed upper GI blood loss (melena stools, known varices seen on EGD 05/2022, etc) to have EGD today by [facility] s/p 1 unit PRBCs giving Venofer x 3 doses as below cbc daily (12) Iron deficiency anemia: Plan: severe with ferritin <10 venofer 300mg IV daily x 3 days - dose #3 today B12/folate noted to be wnl cbc am for stability Plan spoke with pt's daughter, Chela Antony, by phone this evening extensive update given with information re: cirrhosis, plan of care, etc PT, OT while here Admission and Anticipated Discharge Date Admission Date: July 17, 2022 Subjective tele stable overnight was NPO due to banding of varices yesterday resumed on clears this am and has tolerated such had no abd pain, melena stools or nausea/vomiting since her EGD yesterday during the visit her only complaints were that of ongoing dyspnea on exertion, orthopnea, and LE edema Review of Systems Review of Systems: gen - no fevers cv - no chest pain but with edema & orthopnea pulm - no cough GI - no hematemesis Physical Exam Physical Exam: gen - morbidly obese, NAD, sitting in bed comfortably eating her meal neck - no obvious JVD sitting at 90 degrees upright mouth - MMM heart - RRR, s1 s2, no murmur lungs - crackles b/l bases, decreased BS bases, no wheeze - unchanged exam from yesterday abd - distended with ascites, BS+, NT, no hepatomegaly skin - no palmar erythema, no rash; venous stasis changes b/l almendarez ext - pulses 2+ b/l, 2-3+ edema b/l psych - a/o x 3 Results & Data Results & Data Vital Signs (Past 12 Hours) Vital Signs Temp Pulse Pulse Resp BP Pulse Ox O2 Del Method 07/19/22 20:11 Nasal Cannula 07/19/22 16:17 64 07/19/22 15:48 37.4 C 60 17 108/69 96 Nasal Cannula 07/19/22 13:36 93 Room Air 07/19/22 10:56 36.8 C 82 20 150/74 H 98 Nasal Cannula O2 Flow Rate 07/19/22 20:11 2 07/19/22 16:17 07/19/22 15:48 2 07/19/22 13:36 07/19/22 10:56 2 Laboratory Results Laboratory Results - last 24 hr 07/19/22 07/19/22 07/19/22 06:05 07:38 07:57 WBC 8.10 RBC 3.48 L Hgb 9.2 L Hct 30.0 L MCV 86.2 MCH 26.4 MCHC 30.7 L RDW Std Deviation 54.6 H RDW Coeff of Zo 17.5 H Plt Count 108 L MPV 11.5 Absolute Nucleated RBC 0.02 Nucleated RBC % (auto) 0.2 Platelet Estimate Sodium 142 Potassium 4.2 Chloride 110 H Carbon Dioxide 22 Anion Gap 10 BUN 12 Creatinine 0.65 Est Cr Clr Drug Dosing 62.3 Est GFR ( Amer) 95.8 Est GFR (Non-Af Amer) 82.7 BUN/Creatinine Ratio 18.5 Glucose 103 H POC Glucose 119 H Calcium 8.3 L PG Care Time/CCT Total # of Minutes Spent Total Time Spent with Patient: Total time spent is greater than 50% in coordination of care (as documented) at patient's floor/unit and/or counseling patient: Coding Level of Care Code 97542 SUB INP/OBS CARE 2/35MIN Diagnoses GI bleed K92.2 Cirrhosis K74.60 Portal hypertension K76.6 Pancytopenia D61.818 BELL (dyspnea on exertion) R06.09 Elevated troponin R77.8 Type 2 diabetes mellitus treated with insulin E11.9; Z79.4 Hypertension I10 Bilateral lower extremity edema R60.0 GERD (gastroesophageal reflux disease) K21.9 Acute blood loss anemia D62 Iron deficiency anemia D50.9
[2022-07-19 21:51] LABS: Adenovirus F 40/41 PCR Not Detected (NotDetected); Astrovirus PCR Not Detected (NotDetected); Campylobacter PCR Not Detected (NotDetected); Cryptosporidium PCR Not Detected (NotDetected); Cyclospora cayetanensis PCR Not Detected (NotDetected); Entamoeba histolytica PCR Not Detected (NotDetected); Enteroaggregative E.coli(EAEC) Not Detected (NotDetected); Enteropathogenic E.coli (EPEC) Not Detected (NotDetected); Enterotoxigenic E.coli (ETEC) Not Detected (NotDetected); Giardia lamblia PCR Not Detected (NotDetected); Norovirus GI/GII PCR Not Detected (NotDetected); Plesiomonas shigelloides PCR Not Detected (NotDetected); Rotavirus A PCR Not Detected (NotDetected); Salmonella PCR Not Detected (NotDetected); Sapovirus PCR Not Detected (NotDetected); Shiga-like Toxin E.coli (STEC) Not Detected (NotDetected); Shigella/Enteroinvasive E.coli Not Detected (NotDetected); Vibrio cholerae PCR Not Detected (NotDetected); Vibrio species PCR Not Detected (NotDetected); Yersinia enterocolitica PCR Not Detected (NotDetected)
[2022-07-20] MEDS: INSULIN ASPART PER UNIT CHARGE SC SCH ×5 (01:02→20:17)
[2022-07-20] MEDS ORDERED: Nursing to Pharmacy Communication SCH (01:15)
[2022-07-20 06:58] LABS: Hemoglobin 8.6 g/dl (12.0-16.0); Mean Corpuscular Hemoglobin 26.5 pg (25.0-34.0); Mean Corpuscular Hgb Conc 30.7 g/dL (32.0-36.0); Mean Corpuscular Volume 86.2 fL (80.0-100.0); Mean Platelet Volume 12.4 fL (9.4-12.4); Nucleated RBC # (auto) 0.03 K/uL (0-0.12); Nucleated RBC % (auto) 0.4 %; Platelet Count 101 K/uL (130-400); RDW Coefficient of Variation 17.7 % (11.5-14.5); RDW Standard Deviation 54.4 fL (36.4-46.3); Red Blood Count 3.25 M/uL (4.20-5.40); White Blood Count 6.68 K/ul (4.8-10.8)
[2022-07-20 07:24] LABS: BUN Creatinine Ratio 16.4 (10-20); Calcium 8.2 mg/dl (8.6-10.3); Creatinine Clr Calc Pharmacy 54.4 ml/min; Est GFR (African American) 88.9 ml/min; Est GFR (Non-African American) 76.7 ml/min; Potassium 3.7 mmol/L (3.5-5.1)
[2022-07-20] MEDS: PANTOprazole 40 MG in SYRINGE 0 ML IV SCH ×2 (08:41→20:16)
[2022-07-20] MEDS: VERAPAMIL HCL 180 MG TABCR PO SCH (08:41)
[2022-07-20] MEDS: ARTIFICIAL TEARS OP SCH ×4 (08:41→20:16)
[2022-07-20] MEDS: SPIRONOLACTONE 25 MG TAB PO SCH (08:41)
[2022-07-20] MEDS: BENZONATATE 100 MG CAPSULE PO SCH ×3 (08:42→20:15)
[2022-07-20] MEDS: LANTUS PER UNIT CHARGE SQ SCH ×2 (08:42→20:17)
[2022-07-20] MEDS ORDERED: FUROSEMIDE INJ 20 MG/2 ML VIAL IV ONE (08:43)
[2022-07-20] MEDS: PROPRANOLOL HCL 10 MG TAB PO SCH ×2 (10:04→20:15)
[2022-07-20] MEDS: POTASSIUM CHLORIDE CRTAB 20 MEQ TABCR PO SCH (10:04)
[2022-07-20] MEDS ORDERED: FUROSEMIDE 40 MG/4 ML VIAL IV STA (18:13)
[2022-07-20] MEDS ORDERED: POTASSIUM CHLORIDE CRTAB 20 MEQ TABCR PO STA (18:14)
--- NOTE | 2022-07-20 18:19 | Hospitalist Progress Note ---
Date of Service July 20, 2022 Assessment & Plan (1) GI bleed: Plan: Recent melena stools at home with resulting acute blood loss anemia. Clinical picture c/w Upper GI bleeding. Pt w/ known colonic angiectasias treated with laser therapy previously (05/30/22). Had EGD with large esophageal varices which were banded on EGD just a few weeks ago as well (05/30/2022). s/p 1 unit of PRBCs since admission. H/H relatively stable today. Repeat EGD 07/[address] Will with additional esophageal varices s/p banding. There were signs that she may have had recent bleeding from such. Also with ongoing portal gastropathy. Continue pantoprazole 40 mg IV BID. Can likely change to PO PPI tomorrow if H/H stable. Hold aspirin indefinitely given the varices. Advance diet to DM/low salt diet. (2) Cirrhosis: Plan: Clinical picture c/w cirrhosis. Imaging of abdomen c/w cirrhosis. s/p EGD 1 month ago with esophageal varices s/p banding. s/p EGD 07/18/22 with additional varices seen s/p 2 bands placed. Portal gastropathy also seen on EGD. Now with decompensation/volume overload as well as GI bleeding. Aldactone 25 mg p.o. daily started this admission. Increase to 50mg qam starting tomorrow. Propranolol 10 mg p.o. twice daily for portal hypertension started. hold CLARA. Lasix - give BID today. W/u for cirrhosis dispatched including MYA, antismooth muscle antibody, antimitochondrial antibody, ANCA, ceruloplasmin, hepatitis B and C, alpha-1 antitrypsin. Ferritin low thus no hemochromatosis. Suspect, however, her cirrhosis will be from LAN but again await above labs. AFP for HCC screening pending. Transfusional support for #1 if necessary. Low salt diet & nutritional counseling needed to prevent fluid overload. Labs in am. [place] [facility] [place]. Will ultimately need [place] [facility] [place] [facility] [place] (3) Portal hypertension: Plan: propranolol 10mg BID initiated this admission (4) Pancytopenia: Plan: Pancytopenia likely 2nd to cirrhosis Also with Acute blood loss anemia on chronic iron deficiency anemia -- both due to GI blood loss s/p 1 unit of PRBCs overnight with improved H/H today Ferritin 9 thus Venofer IV daily, dose #3 today B12/folate wnl daily CBC while here consider up to 5 doses of IV venofer (5) BELL (dyspnea on exertion): Plan: 2nd to pulm edema in the setting of decompensated cirrhosis Anemia may have contributed as well Cont diuresis with aldactone + lasix (6) Elevated troponin: Plan: HS Troponin 218 on admission and then trended down to 145 Likely myocardial demand ischemia in setting of GI bleed Echocardiogram normal with preserved EF and normal LV wall motion no evidence ACS (7) Type 2 diabetes mellitus treated with insulin: Plan: Well-controlled, A1C 6.6% in 03/2022 LantRachel krueger SSI Recheck a1c am (8) Hypertension: Plan: Cont spironolactone and propranolol Cont verapamil Cont lasix CLARA on hold (9) Bilateral lower extremity edema: Plan: Secondary to hypervolemia from cirrhosis Echo wnl with normal EF, etc TSH wnl Cont lasix + aldactone (10) GERD (gastroesophageal reflux disease): Plan: PPI IV (11) Acute blood loss anemia: Plan: 2nd to presumed upper GI blood loss (melena stools, known varices seen on EGD 05/2022, etc) s/p EGD 07/18 with additional varices banded s/p 1 unit PRBCs venofer as below cbc daily (12) Iron deficiency anemia: Plan: severe with ferritin <10 venofer 300mg IV daily x 3-5 days - dose #3 today B12/folate noted to be wnl cbc am for stability (13) History of temporal arteritis: Plan: patient c/o bilateral pain over the TMJ/pre-aurical regions also with headaches several times a week h/o TA biopsy-confirmed in 2019 was on chronic prednisone and treated by Dr Heller at [facility] Rheum uncertain when prednisone was stopped pain due to recurrent TA? other etiology? check sed rate/crp in am consider MRI brain - I don't see she has had MRI brain in the past Plan spoke with pt's daughter, Chela Antony, by phone yesterday PM extensive update given with information re: cirrhosis, plan of care, etc PT, OT while here Admission and Anticipated Discharge Date Admission Date: July 17, 2022 Subjective tele once again stable overnight she continues with NC O2 requirement mild BELL only with walking no dyspnea at rest mild cough she c/o headaches - sides of face near the preauricular / TMJ regions b/l does have prior h/o temporal arteritis - biopsy confirmed - [address] Marty Rodriguez Rheum follows with Dr Joseph torres headaches occur a few times a week she also c/o a pain in her left side brought on by movement edema remains in legs - no change eating ok without abd pain stool today with less melena Review of Systems Review of Systems: cv - edema; no chest pain; orthopnea present pulm - BELL remains GI - no nausea/emesis Physical Exam Physical Exam: gen - morbidly obese, NAD, sitting in chair comfortably neck - mild JVD mouth - MMM heart - RRR, s1 s2, no murmur lungs - crackles b/l bases, decreased BS bases abd - distended with ascites, BS+, NT, no hepatomegaly skin - no palmar erythema, no rash; venous stasis changes b/l almendarez ext - pulses 2+ b/l, 2+ edema b/l all the way to the thighs psych - a/o x 3 musculo - tender to palpation over L paraspinal lumbar region Results & Data Results & Data Vital Signs (Past 12 Hours) Vital Signs Temp Pulse Pulse Resp BP Pulse Ox O2 Del Method 07/20/22 16:27 68 07/20/22 15:15 37 C 68 16 149/72 H 95 Nasal Cannula 07/20/22 11:41 79 07/20/22 11:19 36.2 C L 95 H 20 112/55 L 95 Nasal Cannula 07/20/22 07:56 36.8 C 83 20 150/75 H 91 Room Air 07/20/22 07:25 Room Air O2 Flow Rate 07/20/22 16:27 07/20/22 15:15 2 07/20/22 11:41 07/20/22 11:19 2 07/20/22 07:56 07/20/22 07:25 Laboratory Results Laboratory Results - last 24 hr 07/19/22 07/19/22 07/19/22 19:45 19:45 20:43 WBC RBC Hgb Hct MCV MCH MCHC RDW Std Deviation RDW Coeff of Zo Plt Count MPV Absolute Nucleated RBC Nucleated RBC % (auto) Sodium Potassium Chloride Carbon Dioxide Anion Gap BUN Creatinine Est Cr Clr Drug Dosing Est GFR ( Amer) Est GFR (Non-Af Amer) BUN/Creatinine Ratio Glucose POC Glucose 158 H Calcium Stl C. cayetanensis PCR Not Detected Stool Rotavirus A PCR Not Detected Stl Adenov F 40/41 PCR Not Detected Stool Astrovirus (PCR) Not Detected Stool Campylobacter PCR Not Detected Stl C. diff Tox B Gene Negative Cdiff Gene Stool Cryptosporidium PCR Not Detected Stl E.coli Shiga Tox PCR Not Detected Stl Enterotoxigenic E PCR Not Detected Stool EPEC (PCR) Not Detected Stool EAEC (PCR) Not Detected Stl E. histolytica PCR Not Detected Stool Giardia Lamblia PCR Not Detected Stool Salmonella PCR Not Detected Stool Sapovirus (PCR) Not Detected Stl P. shigelloides PCR Not Detected Stl Shigella/EIEC PCR Not Detected St Y.enterocolitica PCR Not Detected Stool Vibrio (PCR) Not Detected Stl Vibrio cholerae PCR Not Detected Stl Norovirus GI/GII PCR Not Detected 07/20/22 07/20/22 07/20/22 06:26 06:26 07:28 WBC 6.68 RBC 3.25 L Hgb 8.6 L Hct 28.0 L MCV 86.2 MCH 26.5 MCHC 30.7 L RDW Std Deviation 54.4 H RDW Coeff of Zo 17.7 H Plt Count 101 L MPV 12.4 Absolute Nucleated RBC 0.03 Nucleated RBC % (auto) 0.4 Sodium 140 Potassium 3.7 Chloride 106 Carbon Dioxide 26 Anion Gap 8 BUN 12 Creatinine 0.73 Est Cr Clr Drug Dosing 54.4 Est GFR ( Amer) 88.9 Est GFR (Non-Af Amer) 76.7 BUN/Creatinine Ratio 16.4 Glucose 126 H POC Glucose 138 H Calcium 8.2 L Stl C. cayetanensis PCR Stool Rotavirus A PCR Stl Adenov F PCR Stool Astrovirus (PCR) Stool Campylobacter PCR Stl C. diff Tox B Gene Stool Cryptosporidium PCR Stl E.coli Shiga Tox PCR Stl Enterotoxigenic E PCR Stool EPEC (PCR) Stool EAEC (PCR) Stl E. histolytica PCR Stool Giardia Lamblia PCR Stool Salmonella PCR Stool Sapovirus (PCR) Stl P. shigelloides PCR Stl Shigella/EIEC PCR St Y.enterocolitica PCR Stool Vibrio (PCR) Stl Vibrio cholerae PCR Stl Norovirus GI/GII PCR 07/20/22 07/20/22 11:38 16:52 WBC RBC Hgb Hct MCV MCH MCHC RDW Std Deviation RDW Coeff of Zo Plt Count MPV Absolute Nucleated RBC Nucleated RBC % (auto) Sodium Potassium Chloride Carbon Dioxide Anion Gap BUN Creatinine Est Cr Clr Drug Dosing Est GFR ( Amer) Est GFR (Non-Af Amer) BUN/Creatinine Ratio Glucose POC Glucose 190 H 144 H Calcium Stl C. cayetanensis PCR Stool Rotavirus A PCR Stl Adenov F 40/41 PCR Stool Astrovirus (PCR) Stool Campylobacter PCR Stl C. diff Tox B Gene Stool Cryptosporidium PCR Stl E.coli Shiga Tox PCR Stl Enterotoxigenic E PCR Stool EPEC (PCR) Stool EAEC (PCR) Stl E. histolytica PCR Stool Giardia Lamblia PCR Stool Salmonella PCR Stool Sapovirus (PCR) Stl P. shigelloides PCR Stl Shigella/EIEC PCR St Y.enterocolitica PCR Stool Vibrio (PCR) Stl Vibrio cholerae PCR Stl Norovirus GI/GII PCR PG Care Time/CCT Total # of Minutes Spent Total Time Spent with Patient: Total time spent is greater than 50% in coordination of care (as documented) at patient's floor/unit and/or counseling patient: Coding Level of Care Code 66290 SUB INP/OBS CARE 3/50MIN Diagnoses GI bleed K92.2 Cirrhosis K74.60 Portal hypertension K76.6 Pancytopenia D61.818 BELL (dyspnea on exertion) R06.09 Elevated troponin R77.8 Type 2 diabetes mellitus treated with insulin E11.9; Z79.4 Hypertension I10 Bilateral lower extremity edema R60.0 GERD (gastroesophageal reflux disease) K21.9 Acute blood loss anemia D62 Iron deficiency anemia D50.9 History of temporal arteritis Z87.39
[2022-07-21 08:01] LABS: BUN Creatinine Ratio 16.7 (10-20); Creatinine Clr Calc Pharmacy 55.1 ml/min; Est GFR (African American) 90.4 ml/min; Magnesium 1.5 mg/dl (1.7-2.4); Potassium 3.9 mmol/L (3.5-5.1)
[2022-07-21 08:02] LABS: Estimated Average Glucose 126 mg/dl
[2022-07-21 08:05] LABS: Hematocrit (blood only) 25.4 % (37.0-47.0); Hemoglobin 7.9 g/dl (12.0-16.0); Mean Corpuscular Hemoglobin 26.6 pg (25.0-34.0); Mean Corpuscular Hgb Conc 31.1 g/dL (32.0-36.0); Mean Corpuscular Volume 85.5 fL (80.0-100.0); Mean Platelet Volume 11.2 fL (9.4-12.4); Platelet Count 85 K/uL (130-400); Platelet Estimate Decreased (Normal); RDW Coefficient of Variation 18.9 % (11.5-14.5); RDW Standard Deviation 54.4 fL (36.4-46.3); Red Blood Count 2.97 M/uL (4.20-5.40); White Blood Count 5.07 K/ul (4.8-10.8)
[2022-07-21] MEDS: INSULIN ASPART PER UNIT CHARGE SC SCH ×4 (08:59→21:02)
[2022-07-21] MEDS: LANTUS PER UNIT CHARGE SQ SCH ×2 (09:03→21:02)
[2022-07-21] MEDS: FUROSEMIDE 40 MG/4 ML VIAL IV SCH ×2 (09:04→10:12)
[2022-07-21] MEDS ORDERED: IRON SUCROSE 300 MG in SODIUM CHLORIDE 0.9% 250 ML IV ONE (09:15)
[2022-07-21 09:16] LABS: C Reactive Protein 5.23 mg/dl (0-0.5)
[2022-07-21] MEDS: PANTOprazole 40 MG in SYRINGE 0 ML IV SCH ×2 (10:14→21:03)
[2022-07-21] MEDS: MAGNESIUM SULFATE / D5W 1 GM/100 ML BAG IV SCH ×3 (10:31→15:34)
[2022-07-21] MEDS: ARTIFICIAL TEARS OP SCH ×4 (10:33→21:02)
[2022-07-21] MEDS: POTASSIUM CHLORIDE CRTAB 20 MEQ TABCR PO SCH (10:42)
[2022-07-21] MEDS: BENZONATATE 100 MG CAPSULE PO SCH ×3 (10:42→21:02)
[2022-07-21] MEDS: PROPRANOLOL HCL 10 MG TAB PO SCH ×2 (10:42→21:03)
[2022-07-21] MEDS: VERAPAMIL HCL 180 MG TABCR PO SCH (10:42)
[2022-07-21] MEDS: POTASSIUM CHLORIDE PWD 20 MEQ PACK PO SCH (15:34)
[2022-07-21] MEDS: SPIRONOLACTONE 25 MG TAB PO SCH (15:35)
--- NOTE | 2022-07-21 18:23 | Hospitalist Progress Note ---
Date of Service July 21, 2022 Assessment & Plan (1) GI bleed: Plan: 2nd Upper GI bleeding. s/p 1 unit of PRBCs since admission. EGD 07/[address] Will with additional esophageal varices s/p banding. Also had banding of varices in early May 2022. There were signs from the 07/18 EGD that she may have had recent bleeding from the varices. Also with ongoing portal gastropathy. Continue pantoprazole 40 mg IV BID. Due to stomach upset add carafate 1gm QID. Hold aspirin indefinitely given the varices. Diet as tolerated. Of note - H/H this evening stable. CBC in am. (2) Cirrhosis: Plan: Clinical picture c/w cirrhosis. Imaging of abdomen c/w cirrhosis. s/p EGD 1 month ago with esophageal varices s/p banding. s/p EGD 07/18/22 with additional varices seen s/p 2 bands placed. Portal gastropathy also seen on EGD. Now with decompensation/volume overload as well as GI bleeding. Lasix 40mg IV x 1 this am. Increase aldactone to 50mg qam. Continue Propranolol 10 mg p.o. twice daily for portal hypertension. hold CLARA. reduce dose of verapamil to 180mg daily. W/u for cirrhosis dispatched including MYA, antismooth muscle antibody, antimitochondrial antibody, ANCA, ceruloplasmin, hepatitis B and C, alpha-1 antitrypsin. All of these labs are pending. AFP for HCC screening pending. Ferritin low thus no hemochromatosis. Suspect, however, her cirrhosis will be from LAN but again await above labs. Low salt diet & nutritional counseling needed to prevent fluid overload. Labs in am. Appreciate [facility] GI consult & assistance. Will ultimately need to link with hepatology clinic [place] [facility] [place] [facility] [place]. (3) Portal hypertension: Plan: continue propranolol 10mg BID (4) Pancytopenia: Plan: Pancytopenia 2nd to cirrhosis Also with Acute blood loss anemia on chronic iron deficiency anemia -- both due to GI blood loss s/p 1 unit of PRBCs since admission Ferritin 9 thus Venofer IV daily, dose #4 today B12/folate wnl daily CBC while here consider up to 5 doses of IV venofer (5) BELL (dyspnea on exertion): Plan: 2nd to pulm edema in the setting of decompensated cirrhosis Anemia may have contributed as well Cont diuresis with aldactone + lasix as above (6) Elevated troponin: Plan: HS Troponin 218 on admission and then trended down to 145 Likely myocardial demand ischemia in setting of GI bleed Echocardiogram normal with preserved EF and normal LV wall motion no evidence ACS (7) Type 2 diabetes mellitus treated with insulin: Plan: Well-controlled as outpatient A1C 6% However, BSGs high here Increase Lantus to 10 units BID Adjust novolog correction & carb coverage (8) Hypertension: Plan: Cont spironolactone - increase to 50mg/day Cont verapamil - decrease to 180mg/day Cont lasix - 40mg IV x 1 today Cont inderal 10mg BID Cont to hold CLARA (9) Bilateral lower extremity edema: Plan: Secondary to hypervolemia from cirrhosis Echo wnl with normal EF, etc TSH wnl Cont lasix + aldactone (10) GERD (gastroesophageal reflux disease): Plan: PPI IV Also adding carafate QID (11) Acute blood loss anemia: Plan: 2nd to presumed upper GI blood loss (melena stools, known varices seen on EGD 05/2022, etc) s/p EGD 07/18 with additional varices banded s/p 1 unit PRBCs cbc daily (12) Iron deficiency anemia: Plan: severe with ferritin <10 venofer 300mg IV daily x 3-5 days - dose #4 today B12/folate noted to be wnl cbc am for stability (13) History of temporal arteritis: Plan: patient c/o bilateral pain over the TMJ/pre-aurical regions also with headaches several times a week h/o TA biopsy-confirmed in 2019 was on chronic prednisone and treated by Dr Heller at [facility] Rheum uncertain when prednisone was stopped pain due to recurrent TA? other etiology? checked sed rate/crp today -- both wnl, making recurrent TA unlikely (not 100% ruled out but unlikely) consider MRI brain if headache symptoms recur Plan extensive update given to pt's daughter at bedside today cont to diurese Admission and Anticipated Discharge Date Admission Date: July 17, 2022 Subjective tele overnight - NSR patient continues with dyspnea on exertion she also had mild stomach upset but not worsened by eating did have a stool - she thinks the stool was brown and not black/melena no nausea or emesis mild cough - largely nonproductive daughter at bedside questions answered patient asks about use of august due to the copious voiding from the diuretics Review of Systems Review of Systems: gen - no fevers cv - no chest pain; ongoing edema of legs pulm - no dyspnea at rest, some orthopnea GI - no hematemesis Physical Exam Physical Exam: gen - morbidly obese, NAD, sitting in chair neck - JVD present mouth - MMM heart - RRR, s1 s2, no murmur lungs - crackles b/l bases, decreased BS bases, hint of end-exp wheeze abd - distended with ascites, BS+, NT, no hepatomegaly skin - venous stasis changes b/l almendarez ext - pulses 2+ b/l, 2+ edema b/l -- no change psych - a/o x 3 Results & Data Results & Data Vital Signs (Past 12 Hours) Vital Signs Temp Pulse Pulse Resp BP Pulse Ox O2 Del Method 07/21/22 08:00 Nasal Cannula 07/21/22 15:37 36.7 C 64 16 113/58 L 93 Room Air 07/21/22 08:00 67 07/21/22 12:18 37 C 72 18 148/76 H 97 Nasal Cannula 07/21/22 11:42 36.7 C 72 16 146/75 H 98 Room Air 07/21/22 10:10 36.6 C 75 18 138/74 92 Room Air 07/21/22 08:25 36.7 C 67 16 185/76 H 97 Nasal Cannula O2 Flow Rate 07/21/22 08:00 2 07/21/22 15:37 07/21/22 08:00 07/21/22 12:18 2 07/21/22 11:42 07/21/22 10:10 07/21/22 08:25 2 Laboratory Results Laboratory Results - last 24 hr 07/21/22 07/21/22 07/21/22 07:15 07:15 07:15 WBC 5.07 RBC 2.97 L Hgb 7.9 L Hct 25.4 L MCV 85.5 MCH 26.6 MCHC 31.1 L RDW Std Deviation 54.4 H RDW Coeff of Zo 18.9 H Plt Count 85 L MPV 11.2 Absolute Nucleated RBC Nucleated RBC % (auto) Platelet Estimate Decreased L ESR Sodium 139 Potassium 3.9 Chloride 107 Carbon Dioxide 27 Anion Gap 5 BUN 12 Creatinine 0.72 Est Cr Clr Drug Dosing 55.1 Est GFR ( Amer) 90.4 Est GFR (Non-Af Amer) 78.0 BUN/Creatinine Ratio 16.7 Glucose 111 H POC Glucose Estimat Average Glucose 126 Hemoglobin A1c 6.0 H Calcium 8.0 L Magnesium 1.5 L C-Reactive Protein 5.23 H 07/21/22 07/21/22 07/21/22 07:15 07:44 11:25 WBC RBC Hgb Hct MCV MCH MCHC RDW Std Deviation RDW Coeff of Zo Plt Count MPV Absolute Nucleated RBC Nucleated RBC % (auto) Platelet Estimate ESR 12 Sodium Potassium Chloride Carbon Dioxide Anion Gap BUN Creatinine Est Cr Clr Drug Dosing Est GFR ( Amer) Est GFR (Non-Af Amer) BUN/Creatinine Ratio Glucose POC Glucose 116 H 188 H Estimat Average Glucose Hemoglobin A1c Calcium Magnesium C-Reactive Protein 07/21/22 07/21/22 07/21/22 16:29 19:17 20:06 WBC 8.70 RBC 3.45 L Hgb 9.4 L Hct 30.0 L MCV 87.0 MCH 27.2 MCHC 31.3 L RDW Std Deviation 54.6 H RDW Coeff of Zo 19.4 H Plt Count 106 L MPV 12.5 H Absolute Nucleated RBC 0.02 Nucleated RBC % (auto) 0.2 Platelet Estimate ESR Sodium Potassium Chloride Carbon Dioxide Anion Gap BUN Creatinine Est Cr Clr Drug Dosing Est GFR ( Amer) Est GFR (Non-Af Amer) BUN/Creatinine Ratio Glucose POC Glucose 208 H 234 H Estimat Average Glucose Hemoglobin A1c Calcium Magnesium C-Reactive Protein PG Care Time/CCT Total # of Minutes Spent Total Time Spent with Patient: Total time spent is greater than 50% in coordination of care (as documented) at patient's floor/unit and/or counseling patient: Coding Level of Care Code 89519 SUB INP/OBS CARE 3/50MIN Diagnoses GI bleed K92.2 Cirrhosis K74.60 Portal hypertension K76.6 Pancytopenia D61.818 BELL (dyspnea on exertion) R06.09 Elevated troponin R77.8 Type 2 diabetes mellitus treated with insulin E11.9; Z79.4 Hypertension I10 Bilateral lower extremity edema R60.0 GERD (gastroesophageal reflux disease) K21.9 Acute blood loss anemia D62 Iron deficiency anemia D50.9 History of temporal arteritis Z87.39
[2022-07-21] MEDS: SUCRALFATE 1 GM/10 ML UDC PO SCH ×2 (19:17→21:04)
[2022-07-21 19:25] LABS: Hemoglobin 9.4 g/dl (12.0-16.0); Mean Corpuscular Hemoglobin 27.2 pg (25.0-34.0); Mean Corpuscular Hgb Conc 31.3 g/dL (32.0-36.0); Mean Platelet Volume 12.5 fL (9.4-12.4); Nucleated RBC # (auto) 0.02 K/uL (0-0.12); Nucleated RBC % (auto) 0.2 %; Platelet Count 106 K/uL (130-400); RDW Coefficient of Variation 19.4 % (11.5-14.5); RDW Standard Deviation 54.6 fL (36.4-46.3); Red Blood Count 3.45 M/uL (4.20-5.40)
[2022-07-22 06:49] LABS: Hematocrit (blood only) 28.2 % (37.0-47.0); Hemoglobin 8.7 g/dl (12.0-16.0); Mean Corpuscular Hemoglobin 27.2 pg (25.0-34.0); Mean Corpuscular Hgb Conc 30.9 g/dL (32.0-36.0); Mean Corpuscular Volume 88.1 fL (80.0-100.0); Mean Platelet Volume 12.6 fL (9.4-12.4); Platelet Count 83 K/uL (130-400); RDW Coefficient of Variation 19.6 % (11.5-14.5); RDW Standard Deviation 55.6 fL (36.4-46.3)
[2022-07-22 07:24] LABS: Albumin Globulin Ratio 1.3 (0.9-2); BUN Creatinine Ratio 16.9 (10-20); Bilirubin,Total 0.6 mg/dl (0.2-1.0); Creatinine Clr Calc Pharmacy 56.7 ml/min; Est GFR (African American) 91.9 ml/min; Est GFR (Non-African American) 79.3 ml/min; Globulin 2.3 gm/dl (2.5-4.0); INR 1.1 (0.9-1.1); Potassium 4.1 mmol/L (3.5-5.1); Total Protein 5.3 gm/dl (6.0-8.3)
[2022-07-22] MEDS: INSULIN ASPART PER UNIT CHARGE SC SCH ×4 (08:06→20:24)
[2022-07-22] MEDS: LANTUS PER UNIT CHARGE SQ SCH ×2 (08:06→20:23)
[2022-07-22] MEDS: PROPRANOLOL HCL 10 MG TAB PO SCH ×2 (08:07→20:25)
[2022-07-22] MEDS: BENZONATATE 100 MG CAPSULE PO SCH ×3 (08:07→20:23)
[2022-07-22] MEDS: FUROSEMIDE 40 MG/4 ML VIAL IV SCH (08:07)
[2022-07-22] MEDS: SPIRONOLACTONE 25 MG TAB PO SCH (08:10)
[2022-07-22] MEDS: PANTOprazole 40 MG in SYRINGE 0 ML IV SCH (08:11)
[2022-07-22] MEDS: SUCRALFATE 1 GM/10 ML UDC PO SCH ×4 (08:12→20:26)
[2022-07-22] MEDS: POTASSIUM CHLORIDE PWD 20 MEQ PACK PO SCH (08:12)
[2022-07-22] MEDS: ARTIFICIAL TEARS OP SCH ×4 (08:13→20:25)
[2022-07-22] MEDS ORDERED: VERAPAMIL HCL 180 MG TABCR PO SCH (09:00)
[2022-07-22] MEDS ORDERED: LORATADINE 10 MG TAB PO ONE (16:16)
[2022-07-22] MEDS ORDERED: SODIUM CHLORIDE 0.65% NA SOLN 45 ML (OCEAN) PRN (16:16)
--- NOTE | 2022-07-22 16:18 | Hospitalist Progress Note ---
Date of Service July 22, 2022 Assessment & Plan (1) GI bleed: Plan: 2nd Upper GI bleeding from esophageal varices. Resolved. Stable H/H last 48 hours. s/p 1 unit of PRBCs since admission. EGD 07/[address] Will with additional esophageal varices s/p banding. Also had banding of varices in early May 2022. Also with ongoing portal gastropathy. Continue pantoprazole but change 40 mg BID over to PO. Due to stomach upset added carafate 1gm QID. Hold aspirin indefinitely given the varices. Diet as tolerated. CBC in am. (2) Cirrhosis: Plan: Clinical picture c/w cirrhosis. Imaging of abdomen c/w cirrhosis. s/p EGD 1 month ago with esophageal varices s/p banding. s/p EGD 07/18/22 with additional varices seen s/p 2 bands placed. Portal gastropathy also seen on EGD. Now with decompensation/volume overload as well as GI bleeding. GI bleeding resolved. Volume status improving. Cont lasix 40mg IV daily. Cont aldactone 50mg daily. Continue Propranolol 10 mg p.o. twice daily for portal hypertension. hold CLARA. reduced dose of verapamil to 180mg daily this am; may need to go even lower. W/u for cirrhosis dispatched including MYA, antismooth muscle antibody, antimitochondrial antibody, ANCA, ceruloplasmin, hepatitis B and C, alpha-1 antitrypsin. All of these labs are pending. AFP for HCC screening pending. Ferritin low thus no hemochromatosis. Suspect, however, her cirrhosis will be from LAN but again await above labs. Low salt diet & nutritional counseling needed to prevent fluid overload. Repeat BMP am. Appreciate [facility] [place] GI consult & assistance. Will ultimately need to link with hepatology clinic at [facility] or [facility] [place]. (3) Portal hypertension: Plan: continue propranolol 10mg BID (4) Pancytopenia: Plan: Pancytopenia 2nd to cirrhosis Stable Also with Acute blood loss anemia on chronic iron deficiency anemia -- both due to GI blood loss s/p 1 unit of PRBCs since admission Ferritin 9 thus Venofer IV daily, s/p 4 doses since admission B12/folate wnl daily CBC while here (5) BELL (dyspnea on exertion): Plan: 2nd to pulm edema in the setting of decompensated cirrhosis -- BELL much improved Anemia may have contributed as well Cont diuresis with aldactone + lasix as above (6) Elevated troponin: Plan: HS Troponin 218 on admission and then trended down to 145 Likely myocardial demand ischemia in setting of GI bleed Echocardiogram normal with preserved EF and normal LV wall motion no evidence ACS (7) Type 2 diabetes mellitus treated with insulin: Plan: Well-controlled as outpatient A1C 6% Cont Lantus 10 units BID Cont novolog correction & carb coverage (8) Hypertension: Plan: Cont spironolactone 50mg/day Cont verapamil - decrease to 120mg/day Cont lasix - 40mg IV daily Cont inderal 10mg BID Cont to hold CLARA (9) Bilateral lower extremity edema: Plan: Secondary to hypervolemia from cirrhosis Echo wnl with normal EF, etc TSH wnl Cont lasix + aldactone This will likely take days-weeks to resolve (10) GERD (gastroesophageal reflux disease): Plan: PPI + carafate (11) Acute blood loss anemia: Plan: 2nd to presumed upper GI blood loss (melena stools, known varices seen on EGD 05/2022, etc) s/p EGD 07/18 with additional varices banded s/p 1 unit PRBCs cbc daily (12) Iron deficiency anemia: Plan: severe with ferritin <10 venofer 300mg given x 4 doses thus far CBC stable B12/folate noted to be wnl cbc am (13) History of temporal arteritis: Plan: patient c/o bilateral pain over the TMJ/pre-aurical regions also with headaches several times a week h/o TA biopsy-confirmed in 2019 was on chronic prednisone and treated by Dr Heller at [facility] Rheum uncertain when prednisone was stopped pain due to recurrent TA? other etiology? checked sed rate/crp -- both wnl, making recurrent TA unlikely (not 100% ruled out but unlikely) consider MRI brain if headache symptoms recur (14) URI (upper respiratory infection): Plan: vs allergic rhinitis add nasocort daily add claritin 10mg daily nasal saline spray prn Plan extensive update given to pt's daughter at bedside yesterday cont to diurese making good progress PT, OT when able Admission and Anticipated Discharge Date Admission Date: July 17, 2022 Subjective tele again overnight wnl / NSR patient sitting in chair by window "I feel good today" Dyspnea on exertion MUCH better O2 has been weaned off no orthopnea or PND overnight no abdominal discomfort with eating stool today was brown - no melena, no BRBPR she c/o ear fullness like they are clogged hearing is diminished also with runny nose - clear she reports she has allergies Review of Systems Review of Systems: gen - no fever or chills cv - no chest pain pulm - no cough GI - no pain, nausea, emesis, diarrhea Physical Exam Physical Exam: gen - morbidly obese, NAD, sitting in chair, looks very good today neck - JVD resolved HENT - b/l TMs retracted but normal landmarks, no fluid; nose with boggy turbinates; mouth - MMM heart - RRR, s1 s2, no murmur lungs - crackles b/l bases much improved, decreased BS bases, no wheezes abd - distended with ascites, BS+, NT, no hepatomegaly skin - venous stasis changes b/l shins unchanged ext - pulses 2+ b/l, 2+ edema b/l -- no change psych - a/o x 3 Results & Data Results & Data Vital Signs (Past 12 Hours) Vital Signs Temp Pulse Pulse Pulse Resp BP Pulse Ox 07/22/22 14:59 36.7 C 63 18 134/68 98 07/22/22 09:00 07/22/22 11:04 36.5 C 60 20 119/71 99 07/22/22 07:00 65 07/22/22 07:45 36.8 C 71 20 121/74 95 07/22/22 04:19 36.8 C 70 18 125/70 97 O2 Del Method O2 Flow Rate 07/22/22 14:59 Room Air 07/22/22 09:00 Nasal Cannula 2 07/22/22 11:04 Nasal Cannula 2 07/22/22 07:00 07/22/22 07:45 Nasal Cannula 2 07/22/22 04:19 Nasal Cannula 2 Laboratory Results Laboratory Results - last 24 hr 07/21/22 07/21/22 07/21/22 16:29 19:17 20:06 WBC 8.70 RBC 3.45 L Hgb 9.4 L Hct 30.0 L MCV 87.0 MCH 27.2 MCHC 31.3 L RDW Std Deviation 54.6 H RDW Coeff of Zo 19.4 H Plt Count 106 L MPV 12.5 H Absolute Nucleated RBC 0.02 Nucleated RBC % (auto) 0.2 PT INR Sodium Potassium Chloride Carbon Dioxide Anion Gap BUN Creatinine Est Cr Clr Drug Dosing Est GFR ( Amer) Est GFR (Non-Af Amer) BUN/Creatinine Ratio Glucose POC Glucose 208 H 234 H Calcium Magnesium Total Bilirubin AST ALT Alkaline Phosphatase Total Protein Albumin Globulin Albumin/Globulin Ratio 07/22/22 07/22/22 07/22/22 06:11 06:11 06:11 WBC 5.60 RBC 3.20 L Hgb 8.7 L Hct 28.2 L MCV 88.1 MCH 27.2 MCHC 30.9 L RDW Std Deviation 55.6 H RDW Coeff of Zo 19.6 H Plt Count 83 L MPV 12.6 H Absolute Nucleated RBC Nucleated RBC % (auto) PT 12.0 INR 1.1 Sodium 141 Potassium 4.1 Chloride 107 Carbon Dioxide 27 Anion Gap 7 BUN 12 Creatinine 0.71 Est Cr Clr Drug Dosing 56.7 Est GFR ( Amer) 91.9 Est GFR (Non-Af Amer) 79.3 BUN/Creatinine Ratio 16.9 Glucose 107 H POC Glucose Calcium 8.0 L Magnesium 2.0 Total Bilirubin 0.6 AST 34 ALT 16 Alkaline Phosphatase 89 Total Protein 5.3 L Albumin 3.0 L Globulin 2.3 L Albumin/Globulin Ratio 1.3 07/22/22 07/22/22 07:33 11:21 WBC RBC Hgb Hct MCV MCH MCHC RDW Std Deviation RDW Coeff of Zo Plt Count MPV Absolute Nucleated RBC Nucleated RBC % (auto) PT INR Sodium Potassium Chloride Carbon Dioxide Anion Gap BUN Creatinine Est Cr Clr Drug Dosing Est GFR ( Amer) Est GFR (Non-Af Amer) BUN/Creatinine Ratio Glucose POC Glucose 114 H 106 H Calcium Magnesium Total Bilirubin AST ALT Alkaline Phosphatase Total Protein Albumin Globulin Albumin/Globulin Ratio PG Care Time/CCT Total # of Minutes Spent Total Time Spent with Patient: Total time spent is greater than 50% in coordination of care (as documented) at patient's floor/unit and/or counseling patient: Coding Level of Care Code 48702 SUB INP/OBS CARE 2/35MIN Diagnoses GI bleed K92.2 Cirrhosis K74.60 Portal hypertension K76.6 Pancytopenia D61.818 BELL (dyspnea on exertion) R06.09 Elevated troponin R77.8 Type 2 diabetes mellitus treated with insulin E11.9; Z79.4 Hypertension I10 Bilateral lower extremity edema R60.0 GERD (gastroesophageal reflux disease) K21.9 Acute blood loss anemia D62 Iron deficiency anemia D50.9 History of temporal arteritis Z87.39 URI (upper respiratory infection) J06.9
[2022-07-22] MEDS: FLUTICASONE PROPIONATE NA SPR 16 GM BTL SCH (17:39)
[2022-07-22] MEDS: PANTOprazole 40 MG TAB PO SCH (20:50)
[2022-07-23 06:39] LABS: Hematocrit (blood only) 30.4 % (37.0-47.0); Hemoglobin 9.3 g/dl (12.0-16.0); Mean Corpuscular Hgb Conc 30.6 g/dL (32.0-36.0); Mean Corpuscular Volume 88.4 fL (80.0-100.0); Platelet Count 75 K/uL (130-400); RDW Coefficient of Variation 20.3 % (11.5-14.5); RDW Standard Deviation 55.3 fL (36.4-46.3); Red Blood Count 3.44 M/uL (4.20-5.40); White Blood Count 5.51 K/ul (4.8-10.8)
[2022-07-23 06:45] LABS: BUN Creatinine Ratio 15.3 (10-20); Calcium 8.1 mg/dl (8.6-10.3); Creatinine Clr Calc Pharmacy 55.5 ml/min; Est GFR (African American) 90.4 ml/min; Potassium 4.4 mmol/L (3.5-5.1)
[2022-07-23] MEDS: FLUTICASONE PROPIONATE NA SPR 16 GM BTL SCH (08:38)
[2022-07-23] MEDS: SUCRALFATE 1 GM/10 ML UDC PO SCH ×4 (08:39→20:37)
[2022-07-23] MEDS: FUROSEMIDE 40 MG/4 ML VIAL IV SCH (08:40)
[2022-07-23] MEDS: PROPRANOLOL HCL 10 MG TAB PO SCH ×2 (08:40→20:37)
[2022-07-23] MEDS: VERAPAMIL HCL 120 MG TABCR PO SCH (08:40)
[2022-07-23] MEDS: PANTOprazole 40 MG TAB PO SCH ×2 (08:40→20:37)
[2022-07-23] MEDS: BENZONATATE 100 MG CAPSULE PO SCH ×3 (08:40→20:37)
[2022-07-23] MEDS: ARTIFICIAL TEARS OP SCH ×4 (08:40→20:37)
[2022-07-23] MEDS: SPIRONOLACTONE 25 MG TAB PO SCH (08:41)
[2022-07-23] MEDS: POTASSIUM CHLORIDE PWD 20 MEQ PACK PO SCH (08:41)
[2022-07-23] MEDS: LORATADINE 10 MG TAB PO SCH (08:41)
[2022-07-23] MEDS: LANTUS PER UNIT CHARGE SQ SCH ×2 (08:45→20:36)
[2022-07-23] MEDS: INSULIN ASPART PER UNIT CHARGE SC SCH ×4 (08:46→20:37)
[2022-07-23] MEDS ORDERED: MICONAZOLE NITRATE POWDER 85 GM EXT PRN (11:08)
[2022-07-23] MEDS ORDERED: FUROSEMIDE INJ 20 MG/2 ML VIAL IV ONE (16:30)
--- NOTE | 2022-07-23 16:45 | Hospitalist Progress Note ---
Date of Service July 23, 2022 Assessment & Plan (1) GI bleed: Plan: 2nd Upper GI bleeding from esophageal varices. Resolved. Stable H/H last 72 hours. s/p 1 unit of PRBCs since admission. EGD 07/[address] Will with additional esophageal varices s/p banding; portal gas tropathy present. Also had banding of varices in early May 2022. Continue pantoprazole 40mg BID. Continue carafate 1gm QID. Hold aspirin indefinitely given the varices. Diet as tolerated. CBC in am. (2) Cirrhosis: Plan: Clinical picture c/w cirrhosis. Imaging of abdomen c/w cirrhosis. s/p EGD 1 month ago with esophageal varices s/p banding. s/p EGD 07/18/22 with additional varices seen s/p 2 bands placed. Portal gastropathy also seen on EGD. Now with decompensation/volume overload as well as GI bleeding. GI bleeding resolved. Volume status improving. Cont lasix 40mg IV daily. Give additional dose of 20mg IV x 1 this afternoon. Cont aldactone 50mg daily. Continue Propranolol 10 mg p.o. twice daily for portal hypertension. hold CLARA. BPs continue to be well controlled. Reduce the verapamil again to 120mg qam. W/u for cirrhosis dispatched including MYA, antismooth muscle antibody, antimitochondrial antibody, ANCA, ceruloplasmin, hepatitis B and C, alpha-1 antitrypsin. All of these labs are pending. AFP for HCC screening pending. Ferritin low thus no hemochromatosis. Suspect, however, her cirrhosis will be from LAN but again await above labs. Low salt diet & nutritional counseling needed to prevent fluid overload. Repeat BMP am. Appreciate [facility] GI consult & assistance. Will ultimately need to link with hepatology clinic at [facility] [place] [facility] [place] (3) Portal hypertension: Plan: continue propranolol 10mg BID (4) Pancytopenia: Plan: Pancytopenia 2nd to cirrhosis Stable cell lines Also with Acute blood loss anemia on chronic iron deficiency anemia -- both due to GI blood loss s/p 1 unit of PRBCs since admission Ferritin 9 thus Venofer IV daily, s/p 4 doses since admission B12/folate wnl daily CBC while here (5) BELL (dyspnea on exertion): Plan: 2nd to pulm edema in the setting of decompensated cirrhosis -- BELL much improved Anemia may have contributed as well Cont diuresis with aldactone + lasix (6) Elevated troponin: Plan: HS Troponin 218 on admission and then trended down to 145 Likely myocardial demand ischemia in setting of GI bleed Echocardiogram normal with preserved EF and normal LV wall motion no evidence ACS (7) Type 2 diabetes mellitus treated with insulin: Plan: Well-controlled as outpatient A1C 6% Cont Lantus but reduce to 8 units BID Cont novolog correction & carb coverage (8) Hypertension: Plan: Cont spironolactone 50mg/day Cont verapamil 120mg/day Cont lasix - 40mg IV daily; add 2nd dose of 20mg IV later today Cont inderal 10mg BID Cont to hold CLARA; likely will not resume at d/c (9) Bilateral lower extremity edema: Plan: Improving Secondary to hypervolemia from cirrhosis Echo wnl with normal EF, etc TSH wnl Cont lasix + aldactone This will likely take days-weeks to resolve (10) GERD (gastroesophageal reflux disease): Plan: PPI + carafate (11) Acute blood loss anemia: Plan: 2nd to presumed upper GI blood loss (melena stools, known varices seen on EGD 05/2022, etc) s/p EGD 07/18 with additional varices banded s/p 1 unit PRBCs cbc daily (12) Iron deficiency anemia: Plan: severe with ferritin <10 venofer 300mg given x 4 doses this admission B12/folate noted to be wnl cbc am (13) History of temporal arteritis: Plan: patient c/o bilateral pain over the TMJ/pre-aurical regions also with headaches several times a week h/o TA biopsy-confirmed in 2019 was on chronic prednisone and treated by Dr Heller at [facility] Rheum uncertain when prednisone was stopped pain due to recurrent TA? other etiology? checked sed rate/crp -- both wnl, making recurrent TA unlikely (not 100% ruled out but unlikely) consider MRI brain if headache symptoms recur (14) URI (upper respiratory infection): Plan: vs allergic rhinitis improved cont nasocort daily cont claritin 10mg daily nasal saline spray prn Plan cont to diurese making good progress cont PT, OT Admission and Anticipated Discharge Date Admission Date: July 17, 2022 Subjective tele overnight wnl - NSR patient feeling well denies dyspnea or dyspnea on exertion leg edema improved abdomen less swollen eating well without pain no nausea/emesis had 2 stools - both brown, no melena Review of Systems Review of Systems: CV - no chest pain pulm - minimal cough HENT - improved runny nose with meds neuro - no headaches Physical Exam Physical Exam: gen - morbidly obese, NAD, laying in bed neck - JVD resolved heart - RRR, s1 s2, no murmur lungs - crackles b/l bases- mild, decreased BS bases, no wheezes abd - distension (ascites) improved, BS+, NT, no hepatomegaly skin - venous stasis changes b/l shins unchanged; no cellulitis ext - pulses 2+ b/l, 1-2+ edema b/l psych - a/o x 3 Results & Data Results & Data Vital Signs (Past 12 Hours) Vital Signs Temp Pulse Pulse Resp BP Pulse Ox O2 Del Method 07/23/22 16:33 60 07/23/22 15:12 37.0 C 62 20 127/73 95 Nasal Cannula 07/23/22 13:49 Room Air 07/23/22 11:15 36.4 C L 66 17 120/60 96 Nasal Cannula 07/23/22 07:35 36.6 C 68 18 130/80 96 Nasal Cannula 07/23/22 07:02 72 O2 Flow Rate 07/23/22 16:33 07/23/22 15:12 2 07/23/22 13:49 07/23/22 11:15 2 07/23/22 07:35 2 07/23/22 07:02 Laboratory Results Laboratory Results - last 24 hr 07/22/22 07/22/22 07/23/22 16:54 19:57 05:55 WBC 5.51 RBC 3.44 L Hgb 9.3 L Hct 30.4 L MCV 88.4 MCH 27.0 MCHC 30.6 L RDW Std Deviation 55.3 H RDW Coeff of Zo 20.3 H Plt Count 75 L MPV 11.0 Sodium Potassium Chloride Carbon Dioxide Anion Gap BUN Creatinine Est Cr Clr Drug Dosing Est GFR ( Amer) Est GFR (Non-Af Amer) BUN/Creatinine Ratio Glucose POC Glucose 78 96 Calcium 07/23/22 07/23/22 07/23/22 05:55 08:06 11:50 WBC RBC Hgb Hct MCV MCH MCHC RDW Std Deviation RDW Coeff of Zo Plt Count MPV Sodium 141 Potassium 4.4 Chloride 105 Carbon Dioxide 30 Anion Gap 6 BUN 11 Creatinine 0.72 Est Cr Clr Drug Dosing 55.5 Est GFR ( Amer) 90.4 Est GFR (Non-Af Amer) 78.0 BUN/Creatinine Ratio 15.3 Glucose 99 POC Glucose 124 H 139 H Calcium 8.1 L 07/23/22 16:33 WBC RBC Hgb Hct MCV MCH MCHC RDW Std Deviation RDW Coeff of Zo Plt Count MPV Sodium Potassium Chloride Carbon Dioxide Anion Gap BUN Creatinine Est Cr Clr Drug Dosing Est GFR ( Amer) Est GFR (Non-Af Amer) BUN/Creatinine Ratio Glucose POC Glucose 113 H Calcium PG Care Time/CCT Total # of Minutes Spent Total Time Spent with Patient: Total time spent is greater than 50% in coordination of care (as documented) at patient's floor/unit and/or counseling patient: Coding Level of Care Code 51127 SUB INP/OBS CARE 2/35MIN Diagnoses GI bleed K92.2 Cirrhosis K74.60 Portal hypertension K76.6 Pancytopenia D61.818 BELL (dyspnea on exertion) R06.09 Elevated troponin R77.8 Type 2 diabetes mellitus treated with insulin E11.9; Z79.4 Hypertension I10 Bilateral lower extremity edema R60.0 GERD (gastroesophageal reflux disease) K21.9 Acute blood loss anemia D62 Iron deficiency anemia D50.9 History of temporal arteritis Z87.39 URI (upper respiratory infection) J06.9
[2022-07-24 07:59] LABS: Hematocrit (blood only) 32.4 % (37.0-47.0); Hemoglobin 10.2 g/dl (12.0-16.0); Mean Corpuscular Hgb Conc 31.5 g/dL (32.0-36.0); Mean Platelet Volume 12.5 fL (9.4-12.4); Platelet Count 87 K/uL (130-400); RDW Coefficient of Variation 21.2 % (11.5-14.5); RDW Standard Deviation 55.8 fL (36.4-46.3); Red Blood Count 3.64 M/uL (4.20-5.40); White Blood Count 6.39 K/ul (4.8-10.8)
[2022-07-24 08:13] LABS: BUN Creatinine Ratio 13.1 (10-20); Calcium 8.2 mg/dl (8.6-10.3); Creatinine Clr Calc Pharmacy 45.6 ml/min; Est GFR (Non-African American) 64.7 ml/min; Magnesium 1.9 mg/dl (1.7-2.4); Potassium 4.5 mmol/L (3.5-5.1)
[2022-07-24] MEDS: PROPRANOLOL HCL 10 MG TAB PO SCH ×2 (08:27→20:43)
[2022-07-24] MEDS: SUCRALFATE 1 GM/10 ML UDC PO SCH ×4 (08:29→20:43)
[2022-07-24] MEDS: BENZONATATE 100 MG CAPSULE PO SCH ×3 (08:29→20:42)
[2022-07-24] MEDS: FUROSEMIDE 40 MG/4 ML VIAL IV SCH (08:29)
[2022-07-24] MEDS: PANTOprazole 40 MG TAB PO SCH ×2 (08:29→20:43)
[2022-07-24] MEDS: SPIRONOLACTONE 25 MG TAB PO SCH (08:30)
[2022-07-24] MEDS: ARTIFICIAL TEARS OP SCH ×4 (08:30→20:42)
[2022-07-24] MEDS: VERAPAMIL HCL 120 MG TABCR PO SCH (08:30)
[2022-07-24] MEDS: LORATADINE 10 MG TAB PO SCH (08:30)
[2022-07-24] MEDS: POTASSIUM CHLORIDE PWD 20 MEQ PACK PO SCH (08:30)
[2022-07-24] MEDS: FLUTICASONE PROPIONATE NA SPR 16 GM BTL SCH (08:31)
[2022-07-24] MEDS: INSULIN ASPART PER UNIT CHARGE SC SCH ×4 (08:38→20:42)
[2022-07-24] MEDS: LANTUS PER UNIT CHARGE SQ SCH ×2 (08:38→20:43)
--- NOTE | 2022-07-24 13:56 | Hospitalist Progress Note ---
Date of Service July 24, 2022 Assessment & Plan (1) Dysphagia: Plan: has dysphagia for solids at home. present for quite some time. no dysphagia for liquids. hard foods such as bread, meat, etc are the typical culprits. had dysphagia for pills earlier this week, then again a dry piece of chicken this afternoon. no evidence of food impaction following this event. recent EGD without esophageal stenosis, esophagitis, etc. suspect esophageal dysmotility. aspiration precautions ordered. speech therapy eval ordered. downgrade diet to full liquids until speech sees. (2) GI bleed: Plan: 2nd Upper GI bleeding from esophageal varices. Resolved. Stable H/H last 4-5 days. s/p 1 unit of PRBCs since admission. EGD 07/[address] Will with additional esophageal varices s/p banding; portal gas tropathy present. Also had banding of varices in early May 2022. Continue pantoprazole 40mg BID. Continue carafate 1gm QID. At discharge would give 1gm BID or TID for a few more days then stop. Hold aspirin indefinitely given the varices. CBC in am. (3) Cirrhosis: Plan: Clinical picture c/w cirrhosis. Imaging of abdomen c/w cirrhosis. s/p EGD 1 month ago with esophageal varices s/p banding. s/p EGD 07/18/22 with additional varices seen s/p 2 bands placed. Portal gastropathy also seen on EGD. Now with decompensation/volume overload as well as GI bleeding. GI bleeding resolved. Volume status improving. Cont lasix 40mg IV daily. Give additional dose of 20mg IV x 1 this afternoon. Cont aldactone 50mg daily. Continue Propranolol 10 mg p.o. twice daily for portal hypertension. BPs continue to be well controlled. Recent INR and LFTs stable. W/u for cirrhosis dispatched including MYA, antismooth muscle antibody, antimitochondrial antibody, ANCA, ceruloplasmin, hepatitis B and C, alpha-1 antitrypsin. All of these labs are pending. AFP for HCC screening pending. Ferritin low thus no hemochromatosis. Suspect, however, her cirrhosis will be from LAN but again await above labs. [place] [facility] [place]. [place] [facility] [place] [facility] [place] BMP am. (4) Portal hypertension: Plan: continue propranolol 10mg BID HRs are low 60s thus defer titration at this time (5) Pancytopenia: Plan: Pancytopenia 2nd to cirrhosis Stable cell lines again today Also with Acute blood loss anemia on chronic iron deficiency anemia -- both due to GI blood loss s/p 1 unit of PRBCs since admission Ferritin 9 s/p Venofer x 4 doses since admission H/H rising thus defer on additional doses B12/folate wnl daily CBC while here for stability (6) BELL (dyspnea on exertion): Plan: 2nd to pulm edema in the setting of decompensated cirrhosis -- BELL resolved; stable O2 sats in room air with walking today Anemia may have contributed as well Cont diuresis with aldactone + lasix (7) Elevated troponin: Plan: HS Troponin 218 on admission and then trended down to 145 Likely myocardial demand ischemia in setting of GI bleed Echocardiogram normal with preserved EF and normal LV wall motion no evidence ACS (8) Type 2 diabetes mellitus treated with insulin: Plan: Well-controlled as outpatient A1C 6% Cont Lantus but reduce to 6 units BID Cont novolog correction & carb coverage (9) Hypertension: Plan: Cont spironolactone 50mg/day Cont verapamil 120mg/day - is she on this for headache prophylaxis?? other reason? could we ultimately stop this med so that CLARA inhibitor can be continued due to T2DM? Cont lasix - 40mg IV daily; add 2nd dose of 20mg IV later today once again. At discharge - lasix 40mg BID? lasix 40 qam, 20 qpm? Cont inderal 10mg BID CLARA on hold - see above. (10) Bilateral lower extremity edema: Plan: Improving Secondary to hypervolemia from cirrhosis Echo wnl with normal EF, etc TSH wnl Cont lasix + aldactone This will likely take days-weeks to resolve (11) GERD (gastroesophageal reflux disease): Plan: PPI + carafate (12) Acute blood loss anemia: Plan: 2nd to presumed upper GI blood loss (melena stools, known varices seen on EGD 05/2022, etc) s/p EGD 07/18 with additional varices banded s/p 1 unit PRBCs cbc daily (13) Iron deficiency anemia: Plan: severe with ferritin <10 venofer 300mg given x 4 doses this admission B12/folate noted to be wnl cbc am (14) History of temporal arteritis: Plan: patient c/o bilateral pain over the TMJ/pre-aurical regions earlier in the stay also with headaches several times a week at home h/o TA - biopsy-confirmed in 2019 was on chronic prednisone and treated by Dr Heller at [facility] Rheum uncertain when prednisone was stopped pain due to recurrent TA? other etiology? checked sed rate/crp -- both wnl, making recurrent TA unlikely (not 100% ruled out but unlikely) consider MRI brain if headache symptoms recur or worsen (15) URI (upper respiratory infection): Plan: vs allergic rhinitis improved cont nasocort daily cont claritin 10mg daily nasal saline spray prn Plan updated pt's daughter this evening (Huong Brody) by phone after speech eval tomorrow -- d/c home Sunday? d/c home Sunday? suspect we can transition diuretics to PO next day Admission and Anticipated Discharge Date Admission Date: July 17, 2022 Subjective tele stable overnight NSR saw patient twice - first was on rounds patient reported feeling well no dyspnea at rest or with activity no orthopnea or PND nurses walked the patient - did entire lap with o2 sats in the mid 90s in room air no abd pain, melena or nausea/emesis abdominal swelling improved edema improved 2nd visit - received STAT text that patient had choked on a piece of chicken breast at dinner I came to the bedside she was sitting in the chair she was not in distress, able to speak in full sentences, etc she reported that the chicken had passed into the esophagus within a minute or two she said "it's all the way down" I had her drink water and she drank such without difficulty no regurgitation or vomiting while I was present apparently when this first happened the nurses performed a Heimlich maneuver and nothing came out with such she had been able to talk the entire time but apparently her voice was hoarse briefly just spit up some mucous a few times but no true vomit Review of Systems Review of Systems: gen - feels well cv - no chest pain, no orthopnea, no PND pulm - no dyspnea GI - no hematemesis; dysphagia per the HPI Physical Exam Physical Exam: (first visit) gen - morbidly obese, NAD neck - no JVD nose - congested, irritated skin on philtrum and near the left nare heart - RRR, s1 s2, no murmur lungs - mildly decreased BS bases, no wheezes, no rales, no increased work of breathing abd - soft, NT, ND, BS+, no hepatomegaly; much softer in comparison to earlier in the week skin - venous stasis changes b/l shins unchanged; no cellulitis ext - pulses 2+ b/l, 1+ edema b/l psych - a/o x 3 Results & Data Results & Data Vital Signs (Past 12 Hours) Vital Signs Temp Pulse Pulse Resp BP Pulse Ox O2 Del Method 07/24/22 11:34 36.8 C 71 16 156/60 H 96 Room Air 07/24/22 09:00 Room Air 07/24/22 08:32 36.8 C 58 L 18 118/73 93 Room Air 07/24/22 07:00 65 07/24/22 04:09 37.0 C 69 18 146/55 H 94 Room Air Laboratory Results Laboratory Results - last 24 hr 07/23/22 07/23/22 07/24/22 16:33 20:16 07:20 WBC 6.39 RBC 3.64 L Hgb 10.2 L Hct 32.4 L MCV 89.0 MCH 28.0 MCHC 31.5 L RDW Std Deviation 55.8 H RDW Coeff of Zo 21.2 H Plt Count 87 L MPV 12.5 H Sodium Potassium Chloride Carbon Dioxide Anion Gap BUN Creatinine Est Cr Clr Drug Dosing Est GFR ( Amer) Est GFR (Non-Af Amer) BUN/Creatinine Ratio Glucose POC Glucose 113 H 141 H Calcium Magnesium 07/24/22 07/24/22 07/24/22 07:20 07:52 11:53 WBC RBC Hgb Hct MCV MCH MCHC RDW Std Deviation RDW Coeff of Zo Plt Count MPV Sodium 141 Potassium 4.5 Chloride 102 Carbon Dioxide 32 Anion Gap 7 BUN 11 Creatinine 0.84 Est Cr Clr Drug Dosing 45.6 Est GFR ( Amer) 75.0 Est GFR (Non-Af Amer) 64.7 BUN/Creatinine Ratio 13.1 Glucose 105 H POC Glucose 114 H 168 H Calcium 8.2 L Magnesium 1.9 PG Care Time/CCT Total # of Minutes Spent Total Time Spent with Patient: Total time spent is greater than 50% in coordination of care (as documented) at patient's floor/unit and/or counseling patient: Coding Level of Care Code 65542 SUB INP/OBS CARE 3/50MIN Diagnoses Dysphagia R13.10 GI bleed K92.2 Cirrhosis K74.60 Portal hypertension K76.6 Pancytopenia D61.818 BELL (dyspnea on exertion) R06.09 Elevated troponin R77.8 Type 2 diabetes mellitus treated with insulin E11.9; Z79.4 Hypertension I10 Bilateral lower extremity edema R60.0 GERD (gastroesophageal reflux disease) K21.9 Acute blood loss anemia D62 Iron deficiency anemia D50.9 History of temporal arteritis Z87.39 URI (upper respiratory infection) J06.9
[2022-07-24] MEDS ORDERED: FUROSEMIDE INJ 20 MG/2 ML VIAL IV ONE (16:00)
[2022-07-24] MEDS: ACETAMINOPHEN 500 MG TAB PO PRN (19:15)
[2022-07-24 22:48] LABS: AFP Tumor Marker Serum 3.8 ng/mL; ANCA Screen Negative (Negative); Alpha 1 Antitrypsin 171 mg/dL (83-199); Anti Mitochondrial Antibody NEGATIVE (NEGATIVE); Anti Nuclear Antibody Screen NEGATIVE (NEGATIVE); Ceruloplasmin 33 mg/dL (18-53); Smooth Muscle Antibody NEGATIVE (NEGATIVE)
[2022-07-25 07:58] LABS: Hematocrit (blood only) 33.5 % (37.0-47.0); Hemoglobin 10.3 g/dl (12.0-16.0); Mean Corpuscular Hemoglobin 27.3 pg (25.0-34.0); Mean Corpuscular Hgb Conc 30.7 g/dL (32.0-36.0); Mean Corpuscular Volume 88.9 fL (80.0-100.0); Mean Platelet Volume 12.2 fL (9.4-12.4); Platelet Count 89 K/uL (130-400); RDW Coefficient of Variation 22.1 % (11.5-14.5); RDW Standard Deviation 57.1 fL (36.4-46.3); Red Blood Count 3.77 M/uL (4.20-5.40)
[2022-07-25 08:05] LABS: BUN Creatinine Ratio 13.4 (10-20); Calcium 8.3 mg/dl (8.6-10.3); Est GFR (African American) 77.2 ml/min; Est GFR (Non-African American) 66.6 ml/min; Potassium 3.9 mmol/L (3.5-5.1)
[2022-07-25] MEDS: SUCRALFATE 1 GM/10 ML UDC PO SCH ×4 (08:09→20:53)
[2022-07-25] MEDS: BENZONATATE 100 MG CAPSULE PO SCH (08:09)
[2022-07-25] MEDS: PROPRANOLOL HCL 10 MG TAB PO SCH ×2 (08:10→20:54)
[2022-07-25] MEDS: PANTOprazole 40 MG TAB PO SCH ×2 (08:10→20:54)
[2022-07-25] MEDS: POTASSIUM CHLORIDE PWD 20 MEQ PACK PO SCH (08:10)
[2022-07-25] MEDS: ARTIFICIAL TEARS OP SCH ×4 (08:11→20:54)
[2022-07-25] MEDS: VERAPAMIL HCL 120 MG TABCR PO SCH (08:11)
[2022-07-25] MEDS: FLUTICASONE PROPIONATE NA SPR 16 GM BTL SCH (08:11)
[2022-07-25] MEDS: SPIRONOLACTONE 25 MG TAB PO SCH (08:11)
[2022-07-25] MEDS: FUROSEMIDE 40 MG/4 ML VIAL IV SCH (08:11)
[2022-07-25] MEDS: LANTUS PER UNIT CHARGE SQ SCH ×2 (08:38→20:53)
[2022-07-25] MEDS: INSULIN ASPART PER UNIT CHARGE SC SCH ×4 (08:38→20:38)
[2022-07-25] MEDS ORDERED: BENZONATATE 100 MG CAPSULE PO SCH (08:48)
[2022-07-25] MEDS ORDERED: BENZONATATE 100 MG CAPSULE PO PRN (08:53)
[2022-07-25] MEDS: LORATADINE 10 MG TAB PO SCH (09:08)
--- NOTE | 2022-07-25 16:05 | Hospitalist Progress Note ---
Date of Service July 25, 2022 Assessment & Plan (1) GI bleed: Plan: 2nd Upper GI bleeding from esophageal varices. Resolved. Stable H/H last 4-5 days. s/p 1 unit of PRBCs since admission. EGD 07/[address] Will with additional esophageal varices s/p banding; portal g astropathy present. Also had banding of varices in early May 2022. Continue pantoprazole 40mg BID. Continue carafate 1gm QID. At discharge would give 1gm BID or TID for a few more days then stop. Hold aspirin indefinitely given the varices. hgb improved since admission (2) Dysphagia: Plan: has dysphagia for solids at home. present for quite some time. no dysphagia for liquids. hard foods such as bread, meat, etc are the typical culprits. had dysphagia for pills earlier this week, then again a dry piece of chicken on 07/24 no evidence of food impaction following this event. recent EGD without esophageal stenosis, esophagitis, etc. suspect esophageal dysmotility. aspiration precautions ordered. speech therapy eval ordered. Plan for VFSS tomorrow continue full liquids until after VFSS (3) Cirrhosis: Plan: Clinical picture c/w cirrhosis. Imaging of abdomen c/w cirrhosis. s/p EGD 1 month ago with esophageal varices s/p banding. s/p EGD 07/18/22 with additional varices seen s/p 2 bands placed. Portal gastropathy also seen on EGD. Here with decompensation/volume overload as well as GI bleeding. GI bleeding resolved. Volume status improving. received many days of lasix 40mg IV daily. Will convert to lasix 20mg po daily for tomorrow Cont aldactone 50mg daily. Continue Propranolol 10 mg p.o. twice daily for portal hypertension and titrate up BPs continue to be well controlled. Recent INR and LFTs stable. W/u for cirrhosis dispatched including MYA, antismooth muscle antibody, antimitochondrial antibody, ANCA, ceruloplasmin, hepatitis B and C, alpha-1 antitrypsin all negative. AFP for HCC screening is negative Ferritin low thus no hemochromatosis. Suspect her cirrhosis is from LAN Appreciate [facility] [place]. Will ultimately need to link with hepatology clinic at [facility] [place] or [facility] [place]. follow BMP (4) Portal hypertension: Plan: continue propranolol 10mg BID HRs are low 60s thus defer titration at this time (5) Pancytopenia: Plan: Pancytopenia 2nd to cirrhosis Stable cell lines again today Also with Acute blood loss anemia on chronic iron deficiency anemia -- both due to GI blood loss s/p 1 unit of PRBCs since admission Ferritin 9 s/p Venofer x 4 doses since admission H/H rising thus defer on additional doses B12/folate wnl daily CBC while here for stability (6) BELL (dyspnea on exertion): Plan: 2nd to pulm edema in the setting of decompensated cirrhosis -- BELL resolved; stable O2 sats in room air with walking Anemia may have contributed as well Cont diuresis with aldactone + lasix (7) Elevated troponin: Plan: HS Troponin 218 on admission and then trended down to 145 Likely myocardial demand ischemia in setting of GI bleed Echocardiogram normal with preserved EF and normal LV wall motion no evidence ACS (8) Type 2 diabetes mellitus treated with insulin: Plan: Well-controlled as outpatient A1C 6% Cont Lantus 6 units BID Cont novolog correction & carb coverage (9) Hypertension: Plan: Cont spironolactone 50mg/day, lasix 20mg daily dc verapamil 120mg/day (she is not on it for migraines but rather for HTN) dc losartan while titrating up on propranolol and diuretics (10) Bilateral lower extremity edema: Plan: Improving Secondary to hypervolemia from cirrhosis Echo wnl with normal EF, etc TSH wnl Cont lasix + aldactone This will likely take days-weeks to resolve (11) GERD (gastroesophageal reflux disease): Plan: PPI + carafate (12) Acute blood loss anemia: Plan: 2nd to presumed upper GI blood loss (melena stools, known varices seen on EGD 05/2022, etc) s/p EGD 07/18 with additional varices banded s/p 1 unit PRBCs cbc daily (13) Iron deficiency anemia: Plan: severe with ferritin <10 venofer 300mg given x 4 doses this admission B12/folate noted to be wnl cbc am (14) History of temporal arteritis: Plan: patient c/o bilateral pain over the TMJ/pre-aurical regions earlier in the stay also with headaches several times a week at home h/o TA - biopsy-confirmed in 2019 was on chronic prednisone and treated by Dr Heller at [facility] Rheum uncertain when prednisone was stopped pain due to recurrent TA? other etiology? checked sed rate/crp -- both wnl, making recurrent TA unlikely (not 100% ruled out but unlikely) consider MRI brain if headache symptoms recur or worsen (15) URI (upper respiratory infection): Plan: vs allergic rhinitis improved cont nasocort daily cont claritin 10mg daily nasal saline spray prn Plan Dispo-continued stay for VFSS tomorrow, then dc to [facility] after that Admission and Anticipated Discharge Date Admission Date: July 17, 2022 Subjective Pt feels well, no problems today. Feels leg swelling down, no CP, SOB. Is tolerating liquids diet today Tele with NSR, rates 60-70s Physical Exam Constitutional: WD/WN, vitals as above Neck: trachea midline, no thyromegaly Respiratory: normal respiratory effort, lungs clear to auscultation Cardiovascular: Rate/Rhythm: regular rate and regular rhythm Heart Sounds: no murmur Extremities: + edema (1+ pitting edema of the legs to the knees bilaterally) Chest (Breasts): Chest: normal inspection of chest Gastrointestinal (Abdomen): normal bowel sounds, soft, nontender, no hepatosplenomegaly Musculoskeletal: Extremities: extremities normal to inspection; no cyanosis and no clubbing Skin: no rashes, warm and dry Neurologic: moves all extremities and awake; no focal motor deficits Psychiatric: A+Ox3, euthymic affect Results & Data Results & Data Vital Signs (Past 12 Hours) Vital Signs Temp Pulse Pulse Resp BP Pulse Ox O2 Del Method 07/25/22 15:39 57 L 07/25/22 10:55 36.8 C 61 18 124/72 95 Room Air 07/25/22 07:44 36.8 C 61 18 143/72 H 95 Room Air 07/25/22 07:15 Room Air 07/25/22 07:00 64 Laboratory Results CBC,BMP, mag, all hepatitis serology labs reviewed PG Care Time/CCT Total # of Minutes Spent Total Time Spent with Patient: Total time spent is greater than 50% in coordination of care (as documented) at patient's floor/unit and/or counseling patient: Coding Level of Care Code 41007 SUB INP/OBS CARE 2/35MIN Diagnoses GI bleed K92.2 Dysphagia R13.10 Cirrhosis K74.60 Portal hypertension K76.6 Pancytopenia D61.818 BELL (dyspnea on exertion) R06.09 Elevated troponin R77.8 Type 2 diabetes mellitus treated with insulin E11.9; Z79.4 Hypertension I10 Bilateral lower extremity edema R60.0 GERD (gastroesophageal reflux disease) K21.9 Acute blood loss anemia D62 Iron deficiency anemia D50.9 History of temporal arteritis Z87.39 URI (upper respiratory infection) J06.9
[2022-07-26] MEDS: SPIRONOLACTONE 25 MG TAB PO SCH (08:52)
[2022-07-26] MEDS: SUCRALFATE 1 GM/10 ML UDC PO SCH ×2 (08:52→14:57)
[2022-07-26] MEDS: POTASSIUM CHLORIDE PWD 20 MEQ PACK PO SCH (08:52)
[2022-07-26] MEDS: PANTOprazole 40 MG TAB PO SCH (08:53)
[2022-07-26] MEDS: PROPRANOLOL HCL 10 MG TAB PO SCH (08:53)
[2022-07-26] MEDS: LORATADINE 10 MG TAB PO SCH (08:53)
[2022-07-26] MEDS: FLUTICASONE PROPIONATE NA SPR 16 GM BTL SCH (08:53)
[2022-07-26] MEDS ORDERED: FUROSEMIDE 20 MG TAB PO SCH (09:00)
[2022-07-26] MEDS: ARTIFICIAL TEARS OP SCH ×2 (09:13→14:57)
[2022-07-26] MEDS: LANTUS PER UNIT CHARGE SQ SCH (09:17)
[2022-07-26 09:28] LABS: Basophils # (auto) 0.03 K/uL (0-0.2); Basophils % (auto) 0.4 %; Eosinophils # (auto) 0.52 K/uL (0-0.50); Eosinophils % (auto) 7.2 %; Hematocrit (blood only) 35.4 % (37.0-47.0); Immature Granulocytes # (auto) 0.02 K/uL (0.01-0.20); Immature Granulocytes % (auto) 0.3 %; Lymphocytes # (auto) 1.76 K/uL (1.2-3.4); Lymphocytes % (auto) 24.5 %; Mean Corpuscular Hemoglobin 27.7 pg (25.0-34.0); Mean Corpuscular Hgb Conc 31.1 g/dL (32.0-36.0); Mean Corpuscular Volume 89.2 fL (80.0-100.0); Monocytes # (auto) 0.63 K/uL (0.11-0.59); Monocytes % (auto) 8.8 %; Neutrophils # (auto) 4.22 K/uL (1.40-6.50); Neutrophils % (auto) 58.8 %; Platelet Count 105 K/uL (130-400); RDW Coefficient of Variation 22.8 % (11.5-14.5); RDW Standard Deviation 65.1 fL (36.4-46.3); Red Blood Count 3.97 M/uL (4.20-5.40); White Blood Count 7.18 K/ul (4.8-10.8)
[2022-07-26 09:39] LABS: INR 1.1 (0.9-1.1); Prothrombin Time 11.5 Seconds (9.0-12.0)
[2022-07-26] MEDS: INSULIN ASPART PER UNIT CHARGE SC SCH ×2 (09:41→14:35)
[2022-07-26 09:47] LABS: Anisocytosis Present; Polychromasia 1+
[2022-07-26 09:57] LABS: Albumin Level 3.4 gm/dl (3.4-5.0); Bilirubin Direct 0.2 mg/dl (0-0.2); Bilirubin,Total 0.8 mg/dl (0.2-1.0); Calcium 8.4 mg/dl (8.6-10.3); Magnesium 2.1 mg/dl (1.7-2.4); Potassium 4.2 mmol/L (3.5-5.1)
[2022-07-26 10:03] LABS: BUN Creatinine Ratio 12.3 (10-20); Creatinine Clr Calc Pharmacy 46.5 ml/min; Est GFR (African American) 78.4 ml/min; Est GFR (Non-African American) 67.6 ml/min; Total Protein 6.4 gm/dl (6.0-8.3)
[2022-07-26] MEDS ORDERED: PROPRANOLOL HCL 10 MG TAB PO STA (10:04)
--- NOTE | 2022-07-26 13:36 | Fluoroscopy Report ---
DOUBLE CONTRAST BARIUM ESOPHAGRAM CLINICAL HISTORY: Dysphagia with solids. COMPARISON STUDY: Barium esophagram dated 03/20/2019. TECHNIQUE: A standard air contrast barium esophagram is performed. Multiple spot images of the esopha jovanni are acquired both upright and prone. FINDINGS: The patient swallowed barium and the barium pill without difficulty. The mucosal pattern is normal. There is moderate esophageal dysmotility. There is no evidence of intrinsic or extrinsic mas s lesion. No aspiration was seen. The gastroesophageal junction distended normally. Gastroesophageal reflux was observed during the examination. Fluoroscopy time: 1.08 minutes. Ka,r: 57.6 mGy Fluoroscopic images: 47 IMPRESSION: 1. Esophageal dysmotility. 2. Gastroesophageal reflux was observed during the examination. ACT 112: Negative or not required by law. Electronically signed by: Ge Waldrop M.D. 07/26/2022 1:34 PM
--- NOTE | 2022-07-26 15:36 | Discharge Summary ---
Discharge Summary Date of Service July 26, 2022 Notes For Next Care Provider Needs follow-up with GI/hepatology for new diagnosis of cirrhosis of the liver Stopped aspirin for GI bleeding Discontinued verapamil and losartan due to adding on propranolol, spironolactone, Lasix for cirrhosis. If blood pressures creep up, can add losartan back on. Admission HPI Per Admitting Provider 82 yo F with PMH iron deficiency anemia, IDDM2 with neuropathy, GERD, HLD, HTN presenting with dyspnea. Pt states she has had progressively worsening exertional dyspnea for past month with more acute worsening over past 3-4 days. She has had melena during this time as well. She does report a history of anemia for which she was on iron supplementation. Pt had colonoscopy done in 05/2022 with multiple non-bleeding angiectasias. She denies abdominal pain, chest pain, hematochezia, N/V/D. Pt arrived to ER hemodynamically stable. Initial evaluation significant for Hgb 7.2, Plts 119, troponin 218. CXR, EKG unremarkable. 1u pRBC transfused in ER. At present, pt reports feeling well, denies any complaints aside from exertional dyspnea. Principal Dx & Hospital Course #1 = Principal Diagnosis (1) GI bleed: 2nd Upper GI bleeding from esophageal varices. Resolved. Stable H/H 2 improving to 11.0 on the day of discharge s/p 1 unit of PRBCs since admission. EGD 07/[address] Will with additional esophageal varices s/p banding; portal gastropathy present. Also had banding of varices in early May 2022. Continue pantoprazole 40mg BID. Received carafate 1gm QID x10 days and can stop Hold aspirin indefinitely given the varices. (2) Dysphagia: has dysphagia for solids at home. present for quite some time. no dysphagia for liquids. hard foods such as bread, meat, etc are the typical culprits. had dysphagia for pills earlier this week, then again a dry piece of chicken on 07/24 no evidence of food impaction following this event. recent EGD without esophageal stenosis, esophagitis, etc. suspect esophageal dysmotility which was confirmed on video swallow and barium swallow Appreciate speech therapy consultation-should have slippery diet on discharge (3) Cirrhosis: Clinical picture c/w cirrhosis. Imaging of abdomen c/w cirrhosis. s/p EGD 1 month ago with esophageal varices s/p banding. s/p EGD 07/18/22 with additional varices seen s/p 2 bands placed. Portal gastropathy also seen on EGD. Here with decompensation/volume overload as well as GI bleeding. GI bleeding resolved. Volume status improving. received many days of lasix 40mg IV daily. Converted to lasix 20mg po daily for discharge Started aldactone 50mg daily. Continue Propranolol 10 mg p.o. twice daily for portal hypertension and titrate up to 20 Mg p.o. twice daily on discharge BPs continue to be well controlled. Recent INR and LFTs normal W/u for cirrhosis dispatched including MYA, antismooth muscle antibody, antimitochondrial antibody, ANCA, ceruloplasmin, hepatitis B and C, alpha-1 antitrypsin all negative. AFP for HCC screening is negative Ferritin low thus no hemochromatosis. Suspect her cirrhosis is from [place] Appreciate [facility] [place] GI consult & assistance. Will ultimately need [place] [facility] [place] [facility] [place] She is moving her bowels regularly-does not need rifaximin or lactulose at this time (4) Portal hypertension: Started propranolol 20 Mg p.o. 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 Stable cell lines again today Also with Acute blood loss anemia on chronic iron deficiency anemia -- both due to GI blood loss s/p 1 unit of PRBCs since admission Ferritin 9 s/p Venofer x 4 doses since admission H/H rising thus defer on additional doses B12/folate wnl Follow CBC as an outpatient (6) BELL (dyspnea on exertion): 2nd to pulm edema in the setting of decompensated cirrhosis -- BELL resolved; stable O2 sats in room air with walking Anemia may have contributed as well Cont diuresis with aldactone + lasix (7) Elevated troponin: HS Troponin 218 on admission and then trended down to 145 Likely myocardial demand ischemia in setting of GI bleed Echocardiogram normal with preserved EF and normal LV wall motion no evidence ACS (8) Type 2 diabetes mellitus treated with insulin: Well-controlled as outpatient A1C 6% Continue home insulin dosing on discharge (9) Hypertension: Cont spironolactone 50mg/day, lasix 20mg daily dc verapamil 120mg/day (she is not on it for migraines but rather for HTN) dc losartan while titrating up on propranolol and diuretics If blood pressures increase after discharge, PCP can add losartan back on (10) Bilateral lower extremity edema: Improving but persists Secondary to hypervolemia from cirrhosis Echo wnl with normal EF, etc TSH wnl Cont lasix + aldactone This will likely take days-weeks to resolve (11) GERD (gastroesophageal reflux disease): PPI + carafate (12) Acute blood loss anemia: 2nd to presumed upper GI blood loss (melena stools, known varices seen on EGD 05/2022, etc) s/p EGD 07/18 with additional varices banded s/p 1 unit PRBCs (13) Iron deficiency anemia: severe with ferritin <10 venofer 300mg given x 4 doses this admission B12/folate noted to be wnl Improving by the day of discharge (14) History of temporal arteritis: patient c/o bilateral pain over the TMJ/pre-aurical regions earlier in the stay also with headaches several times a week at home h/o TA - biopsy-confirmed in 2018 was on chronic prednisone and treated by Dr Heller at [facility] Rheum uncertain when prednisone was stopped pain due to recurrent TA? other etiology? checked sed rate/crp -- both wnl, making recurrent TA unlikely (not 100% ruled out but unlikely) (15) URI (upper respiratory infection): vs allergic rhinitis improved with Claritin, Flonase Plan Dispo-DC to home with home health Discharge Exam Constitutional WD/WN, vitals as above Neck trachea midline, no thyromegaly Respiratory normal respiratory effort, lungs clear to auscultation Cardiovascular Rate/Rhythm: regular rate and regular rhythm Heart Sounds: no murmur Extremities: + edema (1+ pitting edema of the legs to the knees bilaterally) Chest (Breasts) Chest: normal inspection of chest Gastrointestinal (Abdomen) normal bowel sounds, soft, nontender, no hepatosplenomegaly Musculoskeletal Extremities: extremities normal to inspection; no cyanosis and no clubbing Skin no rashes, warm and dry Neurologic moves all extremities and awake; no focal motor deficits Psychiatric A+Ox3, euthymic affect Updated Medication List Medication Instructions Recorded Confirmed Type aspirin 81 mg tablet,delayed 81 mg PO QAM 01/19/19 07/14/22 History release carboxymethylcellulose 0.5 1 drp ophthalmic (eye) QID 04/27/20 07/14/22 History %-glycerin 0.9 % eye drops (Refresh Optive) ferrous sulfate 142 mg (45 mg 142 mg PO QAM 04/27/20 07/14/22 History iron) tablet,extended release (Slow Fe) blood sugar diagnostic #100 ea 10/06/21 07/14/22 Rx compress.stocking,knee,reg,lrg #1 packet 10/19/21 07/14/22 Rx Walking Cane #1 ea 12/01/21 07/14/22 Rx ergocalciferol (vitamin D2) 1,250 50,000 unit PO WEEKLY #8 caps 01/18/22 07/14/22 Rx mcg (50,000 unit) capsule verapamil 180 mg tablet,extended 270 mg PO QAM #135 tabs 02/24/22 07/14/22 Rx release acetaminophen 650 mg 1,300 mg PO Q12H 05/24/22 07/14/22 History tablet,extended release insulin detemir U-100 100 unit/mL See Rx Instructions .Route .COMPLEX 05/24/22 07/21/22 History (3 mL) subcutaneous pen (Levemir FlexPen) losartan 100 mg tablet 100 mg PO QAM 05/24/22 07/14/22 History pen needle, diabetic 31 gauge x #200 ea 06/12/22 07/14/22 Rx 3/16" (BD Ultra-Fine Mini Pen Needle) insulin aspart U-100 100 unit/mL See Rx Instructions subcut 06/19/22 07/21/22 Rx (3 mL) subcutaneous pen (Novolog .COMPLEX #15 mL FlexPen U-100 Insulin aspart) pantoprazole 40 mg tablet,delayed 40 mg PO BID GERD #180 tabs 06/19/22 07/14/22 Rx release furosemide 20 mg tablet 20 mg PO QAM #30 tabs 07/17/22 Rx fluticasone propionate 50 2 spray NA DAILY #16 grams 07/26/22 Rx mcg/actuation nasal spray,suspension propranolol 20 mg tablet 20 mg PO BID #60 tabs 07/26/22 Rx spironolactone 50 mg tablet 50 mg PO QAM #30 tabs 07/26/22 Rx Hospital Stay Data Consultations 07/16/22 22:08 ED Decision to Admit Stat 07/17/22 02:06 Consult Gastroenterology Routine Procedures Performed Operation Date: 07/18/22 16:45 Actual Procedures p EGD Banding of Varices - Jd Will MD Diagnostic Imagining Performed 07/17/22 10:14 CT abd pelvis IV con only Urgent 07/26/22 14:00 FL barium swallow Routine Pending Results Patient Have Any Pending Studies at Discharge: No Discharge Instructions Given to Patient (Per Discharging Provider) You were admitted with bleeding from enlarged blood vessels in the esophagus and stomach caused by cirrhosis of the liver. These were treated with banding. You will need to remain on pantoprazole and follow-up with a agricultural extension specialist. You should not take any aspirin or NSAIDs such as Aleve, Motrin, ibuprofen, etc. For your difficulty with your esophagus and swallowing, it is recommended that you have a slippery diet to make foods easier to go down. For the cirrhosis, you were started on some medications to keep extra fluid off as well as medication to help keep those enlarged blood vessels from getting big again. Your cirrhosis is likely from a long history of fatty liver. Please follow-up with the GI doctor for long-term management of your cirrhosis. You should limit the amount of acetaminophen that you take to no more than 2000 mg in a day. Also, it is important to keep your bowels moving regularly, at least 1-2 times daily. Your verapamil and losartan were both discontinued. If your blood pressures start getting elevated, your primary care doctor can add your losartan back onto your blood pressure regimen. Total Time Total Time Spent Total Time Spent (In Minutes): 45 minutes Coding Level of Care Code 82689 INP/OBS DISCH >30 MIN Diagnoses GI bleed K92.2 Dysphagia R13.10 Cirrhosis K74.60 Portal hypertension K76.6 Pancytopenia D61.818 BELL (dyspnea on exertion) R06.09 Elevated troponin R77.8 Type 2 diabetes mellitus treated with insulin E11.9; Z79.4 Hypertension I10 Bilateral lower extremity edema R60.0 GERD (gastroesophageal reflux disease) K21.9 Acute blood loss anemia D62 Iron deficiency anemia D50.9 History of temporal arteritis Z87.39 URI (upper respiratory infection) J06.9
[2022-07-26] MEDS ORDERED: PROPRANOLOL HCL 20 MG TAB PO SCH (21:00)
== END 2022-07-26 16:24 | disposition home health service (06) | DRG 432 ==
LOC: ED 20:35 → 2N 07-17 00:12 → SUATTDRO 07-17 00:12 → 2N 07-17 01:28 → 3N 07-25 23:39